=== PATIENT | female | born 1985 | race Caucasian/White ===

== ENCOUNTER → 2016-07-16 | Outpatient (CLI) | payer BC ==
--- NOTE | 2016-07-16 09:37 | DIAGNOSTIC IMAGING REPORT ---
CHEST 2 VIEWS ROUTINE CLINICAL HISTORY: Cough. COMPARISON STUDY: No previous studies for comparison. FINDINGS: Lung volumes are normal. Lungs are clear. There is no pneumothorax or pleural effusion. Cardiac size is normal. Mediastinal contours are normal. There is no evidence of pulmonary edema. IMPRESSION: No acute cardiopulmonary findings. Electronically signed by: Carlos Manuel Wilson M.D. 07/16/2016 9:35 AM Dictated Date/Time: 07/16/2016 9:34 AM
== END | disposition home or self-care (01) ==
LOC: C.RAD1850 09:18
PROVIDERS: ATTEND Nurse Practitioner Family
DX: R05 Cough (principal); J45.21 Mild intermittent asthma with (acute) exacerbation

== ENCOUNTER → 2017-05-15 | Outpatient (CLI) | payer OTHER, BC ==
--- NOTE | 2017-05-15 14:18 | DIAGNOSTIC IMAGING REPORT ---
L ANKLE MIN 3 VIEWS ROUTINE CLINICAL HISTORY: Left ankle pain status post trauma COMPARISON: None. DISCUSSION: There is minor age-indeterminate cortical irregularity of the distal fibular tip as visualized on the oblique view. Please correlate with the patient's site of pain. There are no other bony findings of significance. There is no dislocation. IMPRESSION: Age-indeterminate cortical irregularity of the distal fibular tip. Please correlate with the patient's site of pain Electronically signed by: Kyle Lemos M.D. 05/15/2017 2:16 PM Dictated Date/Time: 05/15/2017 2:15 PM
== END | disposition home or self-care (01) ==
LOC: C.RAD1850 14:00
PROVIDERS: ATTEND Nurse Practitioner
DX: S99.912A Unspecified injury of left ankle, initial encounter (principal); X58.XXXA Exposure to other specified factors, initial encounter

== ENCOUNTER → 2017-05-20 | Outpatient (CLI) | payer OTHER, BC ==
--- NOTE | 2017-05-20 14:00 | DIAGNOSTIC IMAGING REPORT ---
LEFT FOOT 3 VIEWS CLINICAL HISTORY: Left foot injury. FINDINGS: 3 views of left foot are obtained. No prior studies are available for comparison at the time of dictation. The skeletal structures are well mineralized. No fracture is seen. The joint spaces of the foot are maintained. The overlying soft tissues are within normal limits. IMPRESSION: Unremarkable radiographic assessment of left foot. Electronically signed by: Agustín Haney M.D. 05/20/2017 1:59 PM Dictated Date/Time: 05/20/2017 1:58 PM
== END | disposition home or self-care (01) ==
LOC: C.RAD1850 13:47
PROVIDERS: ATTEND Nurse Practitioner Adult Health
DX: M79.672 Pain in left foot (principal)

== ENCOUNTER → 2017-10-02 | Outpatient (CLI) | payer OTHER ==
--- NOTE | 2017-10-02 11:15 | DIAGNOSTIC IMAGING REPORT ---
HYSTEROSALPINGOGRAM HISTORY: Infertility. FLUOROSCOPY TIME: 0.2 minutes. 5 fluoroscopic spot images.. TECHNIQUE: The cervix was cannulated by the photographic editor-phys ther and water soluble contrast was instilled into the uterus under fluoroscopic guidance. Multiple spot images were obtained. FINDINGS: The uterine cavity is partially obscured by the overlying speculum but appears to be normal in size, shape, and position. The fallopian tubes are patent and there is free peritoneal spill bilaterally. IMPRESSION: Normal hysterosalpingogram. Electronically signed by: Camacho Zapata M.D. 10/02/2017 11:14 AM Dictated Date/Time: 10/02/2017 11:12 AM
== END | disposition home or self-care (01) ==
LOC: C.RAD 10:38
PROVIDERS: ATTEND Obstetrics & Gynecology
DX: N97.9 Female infertility, unspecified (principal)

== ENCOUNTER 2018-11-30 18:11 | Inpatient (IN) ==
--- OUTSIDE RECORDS SUMMARY | 2018-11-30 18:13 | External Medical Summary | Continuity of Care Document ---
:1985 Author Name Amanda Nunez, Provider Address Unavailable Unavailable , Care Team Providers Name Role Phone Case Velma RUBIO Unavailable [email or web address] Espinoza Unavailable Unavailable Unavailable Unavailable Unavailable Assessments Assessed Problems:Classic migraine with auraVertigo of central origin Problems Dizziness (780.4) (R42) Classic migraine with aura (346.00) (G43.109) Vertigo of central origin (386.2) (H81.49) Nausea (787.02) (R11.0) Allergies and Adverse Reactions Gentamicin Sulfate CREA (Allergy) Medications Meclizine HCl - 25 MG Oral Tablet; TAKE 1 TABLET 3 TIMES RODNEY LY NEEDED. Start: 11-Jan-2014 Quantity: 270 Refills: 1 Multi-Day Oral Tablet; TAKE 1 TABLET DAILY. Refills: 0 Procedures Procedures not documented Immunizations Immunizations not documented Social History - Smoking Status Never smoker Interventions Discussion/SummaryVertigo, migraines - pt has had recurring migraines and vertigo likely due to migraine. We discussedoption for daily preventive medication such as nortriptyline or verapamil however would prefer to avoid any medication if she could get . She can use TYlenol or meclizine prn. Keep track of symptoms, increase fluids, and cont good sleep hygiene. Recheck prn any new or worsening concerns. Plan of Treatment Planned Observations Planned Goals not documented Results No Known Results Results not documented Encounters Appointment; Velma Miller PA-C 05-Dec-2015 15:00 Encounter Diagnosis: Problem not documented
[2018-11-30] MEDS ORDERED: BUPIVACAINE 0.25% 30 ML VIAL ONE (19:14)
[2018-11-30] MEDS ORDERED: ePHEDrine sulfate 50 MG/ML AMP ONE (19:15)
[2018-11-30] MEDS ORDERED: fentaNYL citrate 100 MCG/2 ML VIAL ONE (19:15)
[2018-11-30] MEDS ORDERED: fentaNYL 2MCG/ML ROPIV 1.25MG/ML 100 ML BAG EPI ONE (19:15)
[2018-11-30] MEDS ORDERED: OXYTOCIN 30 UNITS/500 ML BAG IV PRN ×2 (19:16→21:12)
--- NOTE | 2018-11-30 19:24 | Obstetrical Progress Note ---
Date of Service November 30, 2018 Subjective Admit Note 33 F P0000 at term admitted with SROM confirmed by amnisure and active contractions. FHT Cat 1 with regular contractions. Cervix 7/100/-1/vertex. GBS is negative. Will admit in active labpr. Patient requesting epidural for pain managemnet. Anticipate normal delivery. Results & Data Vital Signs (Past 12 Hours) Vital Signs Temp Pulse Resp BP 11/30/18 19:08 75 113/72 11/30/18 19:05 75 20 113/72 11/30/18 18:19 36.6 C 18 11/30/18 18:18 75 113/72
[2018-11-30] MEDS: LACTATED RINGER'S 1,000 ML IV PRN ×2 (19:25→20:25)
[2018-11-30 19:54] LABS: Hematocrit (blood only) 34.4 % (37-47); Hemoglobin 11.7 g/dL (12.0-16.0); Mean Corpuscular Volume 86.4 fL (80-100); Mean Platelet Volume 10.6 fL (7.4-10.4); Platelet Count 306 K/uL (130-400); RDW Standard Deviation 44.1 fL (36.4-46.3); Red Blood Count 3.98 M/uL (4.2-5.4)
[2018-11-30] MEDS ORDERED: fentaNYL 2MCG/ML ROPIV 1.25MG/ML 100 ML BAG EPI PRN (20:08)
[2018-11-30] MEDS ORDERED: NALBUPHINE HCL INJ 10 MG/ML AMP IV PRN (20:08)
[2018-11-30] MEDS ORDERED: PROMETHAZINE HCL 6.25 MG in SODIUM CHLORIDE 0.9% 50 ML IV PRN (20:08)
[2018-11-30] MEDS ORDERED: ePHEDrine sulfate 50 MG/ML AMP IV PRN (20:08)
[2018-11-30] MEDS ORDERED: ONDANSETRON INJ 2 MG/ML 2 ML VIAL IV PRN (20:08)
[2018-11-30] MEDS ORDERED: DiphenhydrAMINE HCL 50 MG/ML VIAL IV PRN (20:08)
[2018-11-30] MEDS ORDERED: NALOXONE HCL 1 MG in SODIUM CHLORIDE 0.9% 1000ML 1,000 ML IV PRN (20:08)
[2018-11-30] MEDS ORDERED: NALOXONE HCL 0.4 MG/1 ML VIAL/CARP IV PRN (20:08)
--- NOTE | 2018-11-30 20:08 | Anesthesiology Consultation ---
Date of Service November 30, 2018 Assessment & Plan (1) Encounter for pre-operative examination: Chart Review Chart Review: Patient NOT seen in Pre Admission Testing and Acceptable Risk for Labor Epidural Consults Requested none ASA ASA2 Proposed Anesthesia Anesthesia Type: Labor Epidural Risk / Benefits Reviewed With: PT / POA / Parent / Guardian, Accepts Plan and Informed Consent Obtained History Height/Weight Height: 5 ft 9 in Weight: 97.069 kg Allergies Allergy/AdvReac Type Severity Reaction Status Date / Time shellfish derived Allergy Severe Anaphylaxis Verified 11/30/18 18:33 gentamicin Allergy Intermediate Rash, Fever Verified 11/30/18 18:33 Medications Home Medications Medication Instructions Recorded Confirmed Last Taken ferrous sulfate [iron] 325 mg PO DAILY 11/30/18 11/30/18 11/29/18 vit-iron fum-folic ac 1 tab PO DAILY 11/30/18 11/30/18 11/29/18 [ Vitamin] Active Medications Generic Name Dose Route Start Last Admin Trade Name Freq PRN Reason Stop Dose Admin Lactated Ringer's 1,000 mls @ 125 mls/hr 11/30/18 19:16 11/30/18 19:25 Lr IV 12/02/18 19:15 999 mls/hr .Q8H PRN Administration L&D Protocol Protocol NPO Date Last Intake of Fluids: 11/30/18 Time Last Intake of Fluids: 13:00 Date Last Intake of Solids: 11/30/18 Time Last Intake of Solids: 13:00 Past Medical History Medical History In vitro fertilization IVF with current . Vertigo [place] teeth extracted Exercise / Class Metabolic Activity II 4-5 Yardwork/Stairs/Walk up hill Past Surgical History Surgical History H/O left knee surgery 5 years old - Staph infection Past Anesthesia History No Hx of Anesthesia Complications and No Family Hx of Anesthesia Complications History of PONV No Hx of PONV and No Hx of Motion Sickness Social History Smoking Status: Never smoker Hx Alcohol Use: No Hx Substance Use: No Physical Exam Vital Signs Last Vital Signs Temp 36.6 C 11/30/18 18:19 Pulse 81 11/30/18 20:05 Resp 20 11/30/18 19:05 BP 102/75 11/30/18 20:05 Pulse Ox 92 11/30/18 20:05 ENMT Mouth: no dentition abnormality Thyromental Distance: > or= 3.5 Finger Breadths Mallampati Class: II Neck normal visual inspection Respiratory normal respiratory effort Auscultation: lungs clear to auscultation bilaterally Cardiovascular Rate/Rhythm: regular rate and regular rhythm Psychiatric Orientation: alert
[2018-11-30] MEDS ORDERED: BENZOCAINE 20% AER SPR 82.5 GM CAN EXT PRN (21:12)
[2018-11-30] MEDS ORDERED: DIPHTHERIA/TETANUS/PERTUSSIS 0.5 ML SYR/VIAL IM ONE (21:12)
[2018-11-30] MEDS ORDERED: BISACODYL 10 MG SUPP PR PRN (21:12)
[2018-11-30] MEDS ORDERED: HYDROCORTISONE ACETATE 25 MG SUPP PR PRN (21:12)
[2018-11-30] MEDS ORDERED: ACETAMINOPHEN 325 MG TAB PO PRN (21:12)
[2018-11-30] MEDS ORDERED: SUPERCREAM 0.870% 15 GM JAR EXT PRN (21:12)
--- NOTE | 2018-11-30 21:17 | Procedure Note ---
Vaginal Delivery Summary Date of Service November 30, 2018 Vaginal Delivery Summary Delivery Note live female delivered COLLEEN over intact perineum with cord along side of head with Apgars weight pending. Cord clamped anad cut. Cord blood obtained. Placenta delivered spontaneously and intact. No tears. EBL 200 ml. Final sponge and instrument count are correct. Mom and baby stable.
[2018-12-01] MEDS: IBUPROFEN 600 MG TAB PO PRN ×3 (04:25→17:35)
[2018-12-01 06:31] LABS: Hematocrit (blood only) 30.4 % (37-47); Hemoglobin 10.1 g/dL (12.0-16.0); Mean Corpuscular Hgb Conc 33.2 g/dL (32-36); Mean Corpuscular Volume 87.4 fL (80-100); Mean Platelet Volume 10.9 fL (7.4-10.4); Platelet Count 285 K/uL (130-400); RDW Coefficient of Variation 14.3 % (11.5-14.5); RDW Standard Deviation 45.1 fL (36.4-46.3); Red Blood Count 3.48 M/uL (4.2-5.4); White Blood Count 19.05 K/uL (4.8-10.8)
--- NOTE | 2018-12-01 08:01 | Obstetrical Progress Note ---
Date of Service December 01, 2018 Subjective Patient is seen and examined. She feels well, no complaints. Ambulating without dizziness Voiding without difficulty Tolerating regular diet with out N&V Bleeding is minimal No fever/ chills/ CP/ SOB/ N&V/ Leg pain Breast feeding without problems Vital Signs Temp Pulse Pulse Resp BP BP Pulse Ox 12/01/18 04:30 36.8 C 87 18 108/66 11/30/18 23:55 37.3 C 96 H 18 116/63 11/30/18 23:06 109 H 120/72 11/30/18 22:51 97 H 105/69 11/30/18 22:36 102 H 116/72 11/30/18 22:21 106 H 105/74 11/30/18 22:06 100 H 114/82 11/30/18 21:51 100 H 115/74 11/30/18 21:36 90 116/69 11/30/18 21:21 87 104/60 11/30/18 21:06 107/64 11/30/18 21:03 98 H 99 11/30/18 20:58 111 H 99 11/30/18 20:56 121 H 70 L 11/30/18 20:55 139 H 110/61 11/30/18 20:53 115 H 100 11/30/18 20:48 116 H 100 11/30/18 20:43 115 H 100 11/30/18 20:42 113 H 102/54 L 11/30/18 20:40 123 H 83/44 L 11/30/18 20:38 122 H 100 11/30/18 20:37 111 H 101/56 L 11/30/18 20:35 112 H 106/58 L 11/30/18 20:34 103 H 88 L 11/30/18 20:33 114 H 105/59 L 100 11/30/18 20:31 106 H 101/51 L 11/30/18 20:28 132 H 100 11/30/18 20:23 103 H 109/62 100 11/30/18 20:22 110 H 107/66 89 L 11/30/18 20:18 101 H 100 11/30/18 20:13 95 H 100 11/30/18 20:08 90 100 11/30/18 20:07 79 102/68 11/30/18 20:05 81 102/75 92 11/30/18 20:03 92 H 111/83 100 12/01/18 11/30/18 Range/Units 05:53 19:44 WBC 19.05 H 15.80 H (4.8-10.8) K/uL RBC 3.48 L 3.98 L (4.2-5.4) M/uL Hgb 10.1 L 11.7 L (12.0-16.0) g/dL Hct 30.4 L 34.4 L (37-47) % MCV 87.4 86.4 (80-100) fL MCH 29.0 29.4 (25-34) pg MCHC 33.2 34.0 (32-36) g/dL RDW Std Deviation 45.1 44.1 (36.4-46.3) fL RDW Coeff of Elisabeth 14.3 14.0 (11.5-14.5) % Plt Count 285 306 (130-400) K/uL MPV 10.9 H 10.6 H (7.4-10.4) fL PE: General: Alert, orientedx3, NAD Abd: soft, NT, fundus firm, below Umbilicus Perineum intact, Lochia rubra minimal Ext; NT, no edema AP: 33 yo s/p , ppd# 1 VSS Afebrile doing well Continue routine care All questions were answered CBC in am Results & Data Vital Signs (Past 12 Hours) Vital Signs Temp Pulse Pulse Resp BP BP Pulse Ox 12/01/18 04:30 36.8 C 87 18 108/66 11/30/18 23:55 37.3 C 96 H 18 116/63 11/30/18 23:06 109 H 120/72 11/30/18 22:51 97 H 105/69 11/30/18 22:36 102 H 116/72 11/30/18 22:21 106 H 105/74 11/30/18 22:06 100 H 114/82 11/30/18 21:51 100 H 115/74 11/30/18 21:36 90 116/69 11/30/18 21:21 87 104/60 11/30/18 21:06 107/64 11/30/18 21:03 98 H 99 11/30/18 20:58 111 H 99 11/30/18 20:56 121 H 70 L 11/30/18 20:55 139 H 110/61 11/30/18 20:53 115 H 100 11/30/18 20:48 116 H 100 11/30/18 20:43 115 H 100 11/30/18 20:42 113 H 102/54 L 11/30/18 20:40 123 H 83/44 L 11/30/18 20:38 122 H 100 11/30/18 20:37 111 H 101/56 L 11/30/18 20:35 112 H 106/58 L 11/30/18 20:34 103 H 88 L 11/30/18 20:33 114 H 105/59 L 100 11/30/18 20:31 106 H 101/51 L 11/30/18 20:28 132 H 100 11/30/18 20:23 103 H 109/62 100 11/30/18 20:22 110 H 107/66 89 L 11/30/18 20:18 101 H 100 11/30/18 20:13 95 H 100 11/30/18 20:08 90 100 11/30/18 20:07 79 102/68 11/30/18 20:05 81 102/75 92 11/30/18 20:03 92 H 111/83 100 11/30/18 20:01 83 115/65
[2018-12-01] MEDS ORDERED: NON-FORMULARY MEDICATION (Prenatal Vit-Iron Fum-Folic Ac [Prenatal Vitamin] 1 TAB) PO SCH (09:00)
[2018-12-01] MEDS ORDERED: NON-FORMULARY MEDICATION (Ferrous Sulfate [Iron] 325 MG) PO SCH (09:00)
--- NOTE | 2018-12-01 09:18 | Anesthesia Procedure Note ---
Date of Service December 01, 2018 Anesthesia Post Epidural Note Vital Signs Vital Signs: Temp Pulse Pulse Resp BP BP Pulse Ox 12/01/18 04:30 36.8 C 87 18 108/66 11/30/18 23:55 37.3 C 96 H 18 116/63 11/30/18 23:06 109 H 120/72 11/30/18 22:51 97 H 105/69 11/30/18 22:36 102 H 116/72 11/30/18 22:21 106 H 105/74 11/30/18 22:06 100 H 114/82 11/30/18 21:51 100 H 115/74 11/30/18 21:36 90 116/69 11/30/18 21:21 87 104/60 11/30/18 21:06 107/64 11/30/18 21:03 98 H 99 11/30/18 20:58 111 H 99 11/30/18 20:56 121 H 70 L 11/30/18 20:55 139 H 110/61 11/30/18 20:53 115 H 100 11/30/18 20:48 116 H 100 11/30/18 20:43 115 H 100 11/30/18 20:42 113 H 102/54 L 11/30/18 20:40 123 H 83/44 L 11/30/18 20:38 122 H 100 11/30/18 20:37 111 H 101/56 L 11/30/18 20:35 112 H 106/58 L 11/30/18 20:34 103 H 88 L 11/30/18 20:33 114 H 105/59 L 100 11/30/18 20:31 106 H 101/51 L 11/30/18 20:28 132 H 100 11/30/18 20:23 103 H 109/62 100 11/30/18 20:22 110 H 107/66 89 L 11/30/18 20:18 101 H 100 11/30/18 20:13 95 H 100 11/30/18 20:08 90 100 11/30/18 20:07 79 102/68 11/30/18 20:05 81 102/75 92 11/30/18 20:03 92 H 111/83 100 11/30/18 20:01 83 115/65 11/30/18 20:00 36.6 C 20 11/30/18 19:58 94 H 100 11/30/18 19:53 75 99 11/30/18 19:08 75 113/72 11/30/18 19:05 75 20 113/72 11/30/18 18:19 36.6 C 18 11/30/18 18:18 75 113/72 Notes Mental Status: alert / awake / arousable Nausea / Vomiting: adequately controlled Pain: adequately controlled Airway Patency, RR, SpO2: stable & adequate BP & HR: stable & adequate Hydration State: stable & adequate Neuraxial Anesthesia: was administered and sensory block is resolving Anesthetic Complications: no major complications apparent and Pt Satisfied with anesthetic care Epidural: Removed without complications and With tip intact
[2018-12-01] MEDS: FERROUS SULFATE 325 MG TAB PO SCH (09:34)
[2018-12-01] MEDS: DOCUSATE SODIUM 100 MG CAP PO SCH ×2 (09:34→21:13)
[2018-12-01] MEDS: PRENATAL VITAMIN 1 TAB PO SCH (09:34)
[2018-12-01] MEDS ORDERED: BISACODYL 5 MG TABEC PO SCH (20:00)
[2018-12-02] MEDS: IBUPROFEN 600 MG TAB PO PRN (05:31)
[2018-12-02 06:55] LABS: Basophils # (auto) 0.03 K/uL (0-0.2); Basophils % (auto) 0.2 %; Eosinophils # (auto) 0.15 K/uL (0-0.5); Eosinophils % (auto) 1.2 %; Hemoglobin 10.5 g/dL (12.0-16.0); Immature Granulocytes % (auto) 0.8 %; Lymphocytes # (auto) 2.96 K/uL (1.2-3.4); Mean Corpuscular Hgb Conc 32.8 g/dL (32-36); Mean Corpuscular Volume 89.4 fL (80-100); Mean Platelet Volume 10.3 fL (7.4-10.4); Monocytes # (auto) 0.79 K/uL (0.11-0.59); Monocytes % (auto) 6.4 %; Neutrophils % (auto) 67.4 %; Platelet Count 295 K/uL (130-400); RDW Coefficient of Variation 14.6 % (11.5-14.5); RDW Standard Deviation 47.7 fL (36.4-46.3); Red Blood Count 3.58 M/uL (4.2-5.4); White Blood Count 12.33 K/uL (4.8-10.8)
[2018-12-02] MEDS: PRENATAL VITAMIN 1 TAB PO SCH (08:19)
[2018-12-02] MEDS: FERROUS SULFATE 325 MG TAB PO SCH (08:19)
[2018-12-02] MEDS: DOCUSATE SODIUM 100 MG CAP PO SCH (08:19)
--- NOTE | 2018-12-02 09:03 | Obstetrical Progress Note ---
Date of Service December 02, 2018 Physical Exam Physical Exam: abdomen soft and non tender vaginal bleeding scant to moderate ambulating well no calf tenderness Results & Data Vital Signs (Past 12 Hours) Vital Signs Temp Pulse Resp BP 12/01/18 23:25 36.5 C 69 18 108/75
== END 2018-12-02 16:05 | disposition home or self-care (01) | DRG 807 ==
LOC: OPB 18:11 → 4S1 18:11 → 4S2 23:25

== ENCOUNTER 2024-04-30 07:45 | Inpatient (IN) ==
--- OUTSIDE RECORDS SUMMARY | 2024-04-30 07:50 | External Medical Summary | Summary of Care ---
Author Name Unknown Organization [facility] Address [address] [place] [address] Phone [phone] Care Team Providers Care Acetylene Operator Name Role Phone Unavailable Primary Care Provider Unavailabl e Reason for Visit * Reason Comments Return Visit Encounter Details Date Type Department Care Team (Latest Contact Info) Description 04/21/2024 2:30 PM EDT Office Visit Gynecology/Obstetric s Jethro Mendoza [address] [place] [address] Bud Cruz MD [address] [place] [phone] Mone Mendoza Stress Tests Berta [address] [place] [phone] Multigravida of advanced maternal age in third trimester*; resulting from in vitro fertilization in third trimester; Anxiety during ; High-risk in third trimester; Antepartum anemia complicating ; History of respiratory syncytial virus (RSV) vaccination Allergies Active Allergy Reactions Criticality Noted Date Comments Fentanyl Nausea/vomiting 09/12/2020 Gentamicin 02/13/2011 Unsure- mother told allergic Shellfish Allergy Edema airway High 09/07/2018 documented as of this encounter (statuses as of 04/21/2024) Medications Medication Sig Dispensed Refills Start Date End Date Status 28-0.8 MG Oral Tablet Take by mouth. Active Famotidine 20 MG Oral Tablet (Pepcid) Take 1 Tablet by mouth in the morning and 1 Tablet before bedtime. Active Vitamin B-12 1000 MCG Oral Tablet (Cyanocobalamin) Take 1 Tablet by mouth daily. 90 Tablet 1 02/12/2024 Active Fluticasone Propionate 50 MCG/ACT Nasal Suspension (Flonase) Administer 2 Sprays into each nostril in the morning. 16 g 1 03/26/2024 Active Cetirizine HCl 10 MG Oral Tablet (ZyrTEC) Take 1 Tablet by mouth in the morning. 90 Tablet 3 03/26/2024 Active Albuterol Sulfate HFA 108 (90 Base) MCG/ACT Inhalation Aerosol Solution Inhale 2 Puffs by mouth every 6 hours as needed (SOB, cough). 18 g 5 04/09/2024 Active methylPREDNISolone 4 MG Oral Tablet Therapy Pack (Medrol Dosepack) follow package directions 21 Tablet 04/09/2024 Active documented as of this encounter (statuses as of 04/21/2024) Active Problems Problem Noted Date Diagnosed Date History of respiratory syncytial virus (RSV) vac cination 03/25/2024 Overview: Received 03/10/24 Iron deficiency anemia 02/24/2024 Antepartum anemia complicating 024 Overview: Hgb 10.9 at 28 wks, blood mgmt referral placed High-risk 12/24/2023 Anxiety during 11/05/2023 Overview: Sees a therapist regularly; states that she is doing very well. Denies current depression symptoms as well as suicidal/homicidal ideation. Last Assessment & Plan: ANXIETY AND DEPRESSION CONSIDERATIONS: Untreated maternal anxiety and depression may be associated with an increased risk of multiple poor obstetrical outcomes including miscarriages, low weight, and delivery. Women with a history of anxiety or depression are at risk for recurrence both during and/or the period. Studies of first-trimester SSRI exposure do not demonstrate consistent data to support an increased risk for structural malformations. Anti-anxiety or depression medications have been associated with transient effects (withdrawal syndrome). RECOMMENDATIONS: Mental illness can and should be treated during when the benefits of treatment outweigh potential risks. Referral to behavioral health services as clinically indicated. AMA (advanced maternal age) multigravida 35+ Overview: Ms. Godoy will be 38 years-old by OLAMIDE (04/30/24). Undecided re: genetic screening. Embryos were frozen at age 32. Last Assessment & Plan: CONSIDERATIONS: We reviewed the most pertinent aspects of the following: Advanced maternal age (AMA) refers to a woman with a villafuerte who will be at the age of 35 or older at the estimated time of delivery and may be associated with increased morbidity. Cell-free DNA (cffDNA) screening is a genetic screening option that analyzes maternal blood for DNA that is placental in origin and targets the following conditions: Trisomy 21 (Down syndrome), trisomy 18, trisomy 13, and sex chromosome abnormalities such as monosomy X (Kaplan syndrome), and sex chromosome trisomies (triple X, Klinefelter syndrome, XYY). It may also evaluate for other genetic alterations such as microdeletions, depending on the specific test. It reveals the sex of the fetus but should generally not be performed solely for this indication. The screening test can be performed after 10 weeks gestation. Results provided are NOT diagnostic, but provide a risk estimate. Types of results include low-risk/negative, high-risk/positive, and inconclusive. Low-risk results convey a low risk for the conditions screened, while high-risk results will indicate which condition is high risk and the likelihood of the condition based on the results. High-risk and inconclusive results would require follow up with a Maternal- Medicine genetic counselor. Amniocentesis would be recommended in the setting of high-risk results. Results are available 5-7 days after the test is completed. Cost of cffDNA screening is dependent on health insurance plan. Brochure provided to patient with contact information to call and inquire about insurance coverage and cost ([place] [address]). Patient aware not all insurances cover this test. The performing laboratory will bill the insurance directly. Offer MSAFP only (not Quad Screen) at 16-22 weeks if screening for open neural tube defects is desired. Amniocentesis for diagnosis of chromosomal abnormalities is also available. The risk of complications from the procedure and that risk is 1 in 500 (0.2%). In addition to the risk of chromosomal abnormalities, there is an increased risk of congenital/structural anomalies. RECOMMENDATIONS: Recommend MFM anatomy ultrasound at 19-20 weeks gestation. resulting from in vitro fertilization 10/27/2023 Overview: IVF with embryo transfer date 08/13/23. [facility]. Last Assessment & Plan: We reviewed slightly increased risk for congenital anomalies, particularly cardiac, in IVF pregnancies as well as FGR. Etiology of these complications is unknown; perhaps related to underlying cause of the infertility vs. embryo cell culture. The risk is higher when ICSI is used. echo may not detect small VSD (<2mm) but is effective in diagnosis of most cyanotic lesions and many other clinically relevant cardiac defects. Today's exam did not suggest any evidence of cardiac abnormality. Regardless of preimplantation genetic studies, screening for aneuploidy still recommended if results would affect management. NIPT is available throughout if desired. Vertigo 10/06/2013 Estimated Date of Delivery Comme nts Yes 04/30/2024 Based on Embryo Transfer documented as of this encounter (statuses as of 04/21/2024) Resolved Problems Problem Noted Date Diagnosed Date Resolved Date High-risk 11/05/2023 12/24/19 24 Supervision of normal first , antepartum 04/27/2018 11/30/2018 with history of in fertility, antepartum 04/27/2018 11/30/2018 Overview: IVF Cough 08/09/2013 04/27/2018 General counseling for presc ription of oral contraceptives 03/25/2012 04/27/2018 Internal derangement of knee 12/30/2011 09/22/2018 Acne 04/27/2018 Overview: [facility] documented as of this encounter (statuses as of 04/21/2024) Immunizations Name Administration Dates Next Due RSV Vac., Bivalent, Perfusion F, Pf,0.5 Ml (Abry svo) 03/10/2024 Seasonal Influenza, PF, 6 M & above, IM , (FluLaval or Fluzone) 04/06/2022,03/18/2020 Seasonal Influenza, Trivalent, (IIV3), PF, (Fluz one) 04/06/2024 TDAP (age 10 and older)(Boostrix) 02/11/2024, TDAP, Age 7 and older, IM (Adacel) 08/29/2007 documented as of this encounter Social History Tobacco Use Types Packs/Day Years Used Date Smoking Tobacco: Never Smokeless Tobacco: Never Alcohol Use Standard Drinks/Week Comments Not Currently 0 (1 standard drink = 0.6 oz pur e alcohol) socially PHQ-2 Answer Date Recorded PHQ-2 Score 0 05/03/2018 Hunger Vital Sign Answer Date Recorded Within the past 12 months, y ou worried that your food would run out before you got the money to buy more. Never true 12/11/19 24 Within the past 12 months, t he food you bought just didn't last and you didn't have money to get more. Never true 12/11/2023 Campbell Depression Scale Answer Date Recorded Campbell Depression Scale Total 8 03/25/2024 The thought of harming myself has occurred to me . Never 03/25/2024 Childcare Answer Date Recorded Do you feel overwhelmed with taking care of a child, family member or friend? No 12/11/2023 Does your family need help f inding childcare? (Household - for ages 0-17 years) Not on file 12/11/2023 Clothing Answer Date Recorded Have you been unable to get clothing when it was really needed? No 12/11/2023 Is your family able to get c lothes or diapers when needed? (Household - for ages 0-17 years) Not on file 12/11/2023 Personal Safety Answer Date Recorded Do you feel unsafe or have concerns for your saf ety? No 12/11/2023 Do you have concerns for you r family's safety? (Household - for ages 0-17 years) Not on file 12/11/2023 Utilities Answer Date Recorded Do you have trouble paying y our heating, water, or electric bill? No 12/11/2023 Is your family able to pay t he heat, water, or electric bill? (Household - for ages 0-17 years) Not on file 12/11/2023 Does your family have access to good internet? (Household - for ages 0-17 years) Not on file 12/11/2023 Employment Status Answer Date Recorded Are you unemployed or without regular income? No 12/11/2023 Does the household have a re gular source of income? (Household - for ages 0-17 years) Not on file 12/11/2023 Social Connections Answer Date Recorded How often do you feel lonely or isolated from those around you? Sometimes 12/11/2023 Financial Resource Strain Answer Date R ecorded Do you have any trouble payi ng for your medications, or do you think you might in the future? No 12/11/2023 Does your family have troubl e paying for medicine? (Household - for ages 0-17 years) Not on file 12/11/2023 Transportation Needs Answer Date Record ed READ ONLY Do you have troubl e getting a ride to medical visits or work? Never True 12/11/2023 Does your family have a hard time getting a ride to doctors visits? (Household - for ages 0-17 years) Not on file 12/11/2023 Has lack of transportation k ept you from medical appointments, meetings, work, or from getting things needed for daily living? Check all that apply. (Adult - for ages 18 years and over) Not on file 12/11/2023 Do you (or your family) have trouble finding or paying for a ride (transportation)? (Household - for ages 0-17 years) Not on file 12/11/2023 Housing Stability Answer Date Recorded Do you currently live in a s helter or have no steady place to sleep at night? No 12/11/2023 READ ONLY Do you think you a re at risk of becoming homeless? No 12/11/2023 Does your family worry about paying for your home or becoming homeless? (Household - for ages 0-17 years) Not on file 0 12/11/2023 Are you homeless or worried that you might be in the future? (Adult - for ages 18 years and over) Not on file Are you (or your family) deyanira eless or worried that you might be in the future? (Household - for ages 0-17 years) Not on file Food Insecurity Answer Date Recorded Do you need food for this week? No 12/11/2023 Are you able to get enough f ood for your family? (Household - for ages 0-17 years) Not on file 12/11/2023 Does your family need food t his week? (Household - for ages 0-17 years) Not on file 12/11/2023 Do you always have enough fo od for your family? (Household - for ages 0-17 years) Not on file 12/11/2023 Estimated Date of Delivery Comme nts Yes 04/30/2024 Based on Embryo Transfer Sex and Gender Information Value Date Recorded Sex Assigned at Female 01/28/2023 6:38 AM EDT Gender Identity Female 01/28/2023 6:38 AM EDT Sexual Orientation Straight 01/28/2023 6: 38 AM EDT Job Start Date Occupation Industry Not on file Not on file Not on file documented as of this encounter Last Filed Vital Signs Vital Sign Reading Time Taken Comments Blood Pressure 114/64 04/21/2024 2:52 PM EDT Pulse - - Temperature - - Respiratory Rate - - Oxygen Saturation - - Inhaled Oxygen Concentration - - Weight - - Height 175.3 cm (5' 9") 04/21/2024 2:52 PM EDT Body Mass Index - - documented in this encounter Progress Notes * Bud Cruz MD - 04/21/2024 3:01 PM EDT Pt dong well No comaplaints NST; CAT1 ASSESSMENT assessment with Non-stress Test completed on 04/21/2024 at 38weeks gestation for indication of advanced maternal age heart baseline: 140 bpm Variability: Moderate Decelerations: absent Accelerations: present Contractions: None NST start time: 1430 NST stop time: 1450 NST strip reviewed, interpreted, and approved by OB provider, link. NST strip stored in clinic storage file documented in this encounter Plan of Treatment Upcoming Encounters Date Type Department Care Team (Late st Contact Info) Description 04/28/2024 1:15 PM EDT Office Visit Gynecology/Obstetrics Jehtro Mendoza [address] [place] [address] Rohini Gomez CRNP [address] [place] [address] Mendoza, Non Stress Tests Berta [address] [place] [address] Health Maintenance Due Date Last Done Comments Hepatitis B Vaccine (1 of 3 - 19+ 3-dose series) 2004 HPV/Co-Test 2015 Diabetes Screening 10/20/2016 10/20/2013 Depression Screening 01/16/2020 01/15/2019 Cervical Cancer Screening 01/17/2024 Pap Smear 01/17/2024 01/16/2021, 01/28, 05/31/2014, Additional history exists DTap/Tdap Vaccines (4 - Td or Tdap) 02/10/2034 02/11/2024, 09/22/2018, 08/29/2007 Pneumococcal Vaccine: Pediatrics (0 to 5 Years) and At-Risk Patients (6 to 64 Years) Aged Out 07/02/2016 No longer eligible based on patient's age to complete this topic COVID-19 Vaccine Completed 04/04/2024 Influenza Vaccine (FLU shot) Completed 01/2024, 04/06/2022, 03/18/2020, Additional history exists HPV (Gardasil) Vaccine Aged Out No lo nger eligible based on patient's age to complete this topic MENINGOCOCCAL (MENACTRA/MENVEO) Aged Out No longer eligible based on patient's age to complete this topic documented as of this encounter Medical Devices Not on filedocumented as of this encounter Visit Diagnoses Diagnosis Multigravida of advanced maternal age in third trimester- Primary resulting from in vitro fertilization in third trimester Anxiety during High-risk in third trimester Antepartum anemia complicating Anemia, antepartum History of respiratory syncytial virus (RSV) vaccination documented in this encounter
--- OUTSIDE RECORDS SUMMARY | 2024-04-30 07:50 | External Medical Summary | Summary of Care ---
Author Name Unknown Organization [facility] Address [address] [place] [address] Phone [phone] Care Team Providers Care Assistant Boiler Operator Name Role Phone Unavailable Primary Care Provider Unavailabl e Reason for Visit * Reason Onset Date Comments Anemia Follow-Up 04/15/2024 Encounter Details Date Type Department Care Team (Late st Contact Info) Description 04/15/2024 10:15 AM EDT Pharmacy Pharmacy, [place] [address] [place] [address] Clinic, Anemia [address] [place] [address] Iron deficiency anemia, unspecified iron deficiency anemia type* Allergies Active Allergy Reactions Criticality Noted Date Comments Fentanyl Nausea/vomiting 09/12/2020 Gentamicin 02/13/2011 Unsure- mother told allergic Shellfish Allergy Edema airway High 09/07/2018 documented as of this encounter (statuses as of 04/15/2024) Medications Medication Sig Dispensed Refills Start Date [...] as of this encounter (statuses as of 04/15/2024) Active Problems Problem Noted Date Diagnosed Date [...] insurance coverage and cost [place] [address]). Patient aware not all insurances cover this [...] Overview[facility] Last Assessment & Plan: We reviewed slightly [...] as of this encounter (statuses as of 04/15/2024) Resolved Problems Problem Noted Date Diagnosed Date Resolved Date High-risk 11/05/2023 12/24/19 24 Supervision of normal first , antepartum 04/27/2018 11/30/2018 with history of in fertility, antepartum 04/27/2018 11/30/2018 Overview: IVF Cough 08/09/2013 04/27/2018 General counseling for presc ription of oral contraceptives 03/25/2012 04/27/2018 Internal derangement of knee 12/30/2011 09/22/2018 Acne 04/27/2018 Overview: [facility] documented as of this encounter (statuses as of 04/15/2024) Immunizations Name Administration Dates Next Due RSV [...] money to get more. Never true 12/11/2023 [place]ier Depression Scale Answer Date Recorded [place] Depression Scale Total 8 03/25/2024 The thought [...] on file documented as of this encounter Progress Notes * Keely Negro [facility] - 04/15/2024 3:45 PM EDT Patient Phone Numbers Called patient to review labs from 04/06. Hgb: 11.4 g/dL TSAT: 21 % Ferritin: 215 ng/mL B12: 329 pg/mL FA: 11.2 ng/mL Patient is s/p Infed 1gm x 1 on 03/04. Hgb is below target range but much improved. Iron studies within target range. Per chart review, patient is taking B12 1000mcg daily and appears to be tolerating it without issue. Patient is feeling really good. Plan: No anemia pharmacological intervention at this time. Anemia Clinic will sign off at this time. Thank you for allowing us to participate in the care of this patient. Thanks, Keely Negro [facility] Clinical Pharmacist [facility] (P: [phone]) documented in this encounter Plan of Treatment Upcoming Encounters Date Type Department Care Team (Late st Contact Info) Description 04/21/2024 2:30 PM EDT Office Visit Gynecology/Obstetrics Jethro Mendoza [address] [place] [phone] Bud Cruz MD [address] [place] [phone] Mone Mendoza Stress Tests Berta [address] [place] [address] Health Maintenance Due Date Last Done Comments [...] as of this encounter Visit Diagnoses Diagnosis Iron deficiency anemia, unspecified iron deficiency anemia type- Primary documented in this encounter
--- OUTSIDE RECORDS SUMMARY | 2024-04-30 07:50 | External Medical Summary | Summary of Care ---
Author Name Unknown Organization [facility] Address [address] [facility] [place] [address] Phone [phone] Care Team Providers Care Co Founder Name Role Phone Unavailable Primary Care Provider Unavailabl e Reason for Visit * Reason Comments Return Visit Non Stress Test Encounter Details Date Type Department Care Team (Late st Contact Info) Description 04/28/2024 1:15 PM EDT Office Visit Gynecology/Obstetri carol Mendoza [address] [place] [address] Rohini Gomez CRNP [address] [place] [phone] Reji Non Stress Tests Berta [address] [place] [phone] High-risk in third trimester*; Multigravida of advanced maternal age in third trimester; resulting from in vitro fertilization in third trimester; Anxiety during ; Antepartum anemia complicating ; History of respiratory syncytial virus (RSV) vaccination Allergies Active Allergy Reactions Criticality Noted Date Comments Fentanyl Nausea/vomiting 09/12/2020 Gentamicin 02/13/2011 Unsure- mother told allergic Shellfish Allergy Edema airway High 09/07/2018 documented as of this encounter (statuses as of 04/28/2024) Medications Medication Sig Dispensed Refills Start Date [...] as of this encounter (statuses as of 04/28/2024) Active Problems Problem Noted Date Diagnosed Date [...] insurance coverage and cost ([place] [address]). Patient aware not all insurances cover this [...] Overview: [facility]. Last Assessment & Plan: We reviewed [...] as of this encounter (statuses as of 04/28/2024) Resolved Problems Problem Noted Date Diagnosed Date Resolved Date High-risk 11/05/2023 12/24/19 24 Supervision of normal first , antepartum 04/27/2018 11/30/2018 with history of in fertility, antepartum 04/27/2018 11/30/2018 Overview: IVF Cough 08/09/2013 04/27/2018 General counseling for presc ription of oral contraceptives 03/25/2012 04/27/2018 Internal derangement of knee 12/30/2011 09/22/2018 Acne 04/27/2018 Overview: [facility] documented as of this encounter (statuses as of 04/28/2024) Immunizations Name Administration Dates Next Due RSV [...] money to get more. Never true 12/11/2023 Elizabeth Depression Scale Answer Date Recorded Elizabeth Depression Scale Total 8 03/25/2024 The thought [...] Sign Reading Time Taken Comments Blood Pressure 118/68 04/28/2024 1:08 PM EDT Pulse - - Temperature - - Respiratory Rate - - Oxygen Saturation - - Inhaled Oxygen Concentration - - Weight - - Height - - Body Mass Index - - documented in this encounter Progress Notes * Rohini Gomez CRNP - 04/28/2024 1:25 PM EDT 39w5d Doing well. Good movement. No regular ctx, leaking/bleeding. Induction is on Friday, discussed what to expect. Call prn. ASSESSMENT assessment with Non-stress Test completed on 04/28/2024 at 39.5 weeks gestation for indication of IVF heart baseline: 130 bpm Variability: Moderate Decelerations: absent Accelerations: present Contractions: occasional NST start time: 1304 NST stop time: 1332 NST strip reviewed, interpreted, and approved by OB provider, JACOBO Vick . NST strip stored in clinic storage file JACOBO Vick * Lindsey Ugarte CMA - 04/28/2024 1:09 PM EDT 39w5d + nausea, from heartburn No concern s IOL 04/30 documented in this encounter Plan of Treatment Upcoming Encounters Date Type Department Care Team (Late st Contact Info) Description 05/25/2024 10:30 AM EST Office Visit Gynecology/Obstetrics Jethro Mendoza [address] [place] [phone] [place], JACOBO Epstein [address] [place] [address] Health Maintenance Due Date Last Done Comments [...] as of this encounter Visit Diagnoses Diagnosis High-risk in third trimester- Primary Multigravida of advanced maternal age in third trimester resulting from in vitro fertilization in third trimester Anxiety during Antepartum anemia complicating Anemia, antepartum History of respiratory syncytial virus (RSV) vaccination documented in this encounter
--- OUTSIDE RECORDS SUMMARY | 2024-04-30 07:50 | External Medical Summary | Summary of Care ---
Author Name Unknown Organization [facility] Address [address] [facility] [place] [address] Phone [phone] Care Team Providers Care Physical Director Name Role Phone Unavailable Primary Care Provider Unavailabl e Reason for Visit * Reason Comments Return Visit Non Stress Test Encounter Details Date Type Department Care Team (Late st Contact Info) Description 04/14/2024 11:00 AM EDT Office Visit Gynecology/Obstetri carol Uribe'yesenia Mendoza [address] [place] [address] Rohini Gomez CRNP [address] [place] [phone] Reji Non Stress Tests Berta [address] [place] [phone] High-risk in third trimester*; Multigravida of advanced [...] as of this encounter (statuses as of 04/14/2024) Medications Medication Sig Dispensed Refills Start Date [...] as of this encounter (statuses as of 04/14/2024) Active Problems Problem Noted Date Diagnosed Date [...] insurance coverage and cost [place] [address]). Patient aware not all insurances cover this [...] Overview: [facility]. Last Assessment & Plan: We reviewed [...] as of this encounter (statuses as of 04/14/2024) Resolved Problems Problem Noted Date Diagnosed Date Resolved Date High-risk 11/05/2023 12/24/19 24 Supervision of normal first , antepartum 04/27/2018 11/30/2018 with history of in fertility, antepartum 04/27/2018 11/30/2018 Overview: IVF Cough 08/09/2013 04/27/2018 General counseling for presc ription of oral contraceptives 03/25/2012 04/27/2018 Internal derangement of knee 12/30/2011 09/22/2018 Acne 04/27/2018 Overview: [facility] documented as of this encounter (statuses as of 04/14/2024) Immunizations Name Administration Dates Next Due RSV [...] money to get more. Never true 12/11/2023 [place] Depression Scale Answer Date Recorded [place] Depression Scale Total 8 03/25/2024 The thought [...] Sign Reading Time Taken Comments Blood Pressure 120/72 04/14/2024 11:12 AM EDT Pulse - - Temperature - - Respiratory Rate - - Oxygen Saturation - - Inhaled Oxygen Concentration - - Weight - - Height - - Body Mass Index - - documented in this encounter Progress Notes * Rohini Gomez CRNP - 04/14/2024 11:15 AM EDT 37w5d Normal movement pattern. No regular ctx; denies leaking/bleeding. Repeat CBC last week WNL. Scheduled for 39 week induction, wishes to change to 04/30. 1 week return with NST. ASSESSMENT assessment with Non-stress Test completed on 04/14/2024 at 37.5 weeks gestation for indication of IVF heart baseline: 140 bpm Variability: Moderate Decelerations: absent Accelerations: present Contractions: Present rare NST start time: 1108 NST stop time: 1133 NST strip reviewed, interpreted, and approved by OB provider, JACOBO Vick. NST strip stored in clinic storage file JACOBO Vick documented in this encounter Plan of Treatment Upcoming Encounters Date Type Department Care Team (Late st Contact Info) Description 04/15/2024 9:30 AM EDT Pharmacy Pharmacy, [address] [address] Clinic, Anemia [address] [place] [address] 04/21/2024 2:30 PM EDT Office Visit Gynecology/Obstetrics Jethro Mendoza [address] [place] [address] Bud Cruz MD [address] [place] [phone] Reji, Mone Stress Tests Berta [address] [place] [phone] Health Maintenance Due Date Last Done Comments [...]
--- OUTSIDE RECORDS SUMMARY | 2024-04-30 07:50 | External Medical Summary | Summary of Care ---
Author Name Unknown Organization [facility] Address [address] [facility] [place] [address] Phone [phone] Care Team Providers Care Paving Block Cutter Name Role Phone Unavailable Primary Care Provider Unavailabl e Reason for Visit * Reason Comments Return Visit Non Stress Test Encounter Details Date Type Department Care Team (Late st Contact Info) Description 04/28/2024 1:15 PM EDT Office Visit Gynecology/Obstetri carol Mendoza [address] [place] [address] Rohini Gomez CRNP [address] [place] [phone] Reji Non Stress Tests Berta [address] [place] [address] High-risk in third trimester*; Multigravida of advanced [...] insurance coverage and cost ([place] [address]). Patient aware not all insurances cover this [...] Overview: [facility]. Last Assessment & Plan: We reviewed [...] of knee 12/30/2011 09/22/2018 Acne 04/27/2018 Overview: [facility] documented as of this encounter (statuses [...] money to get more. Never true 12/11/2023 [place] Depression Scale Answer Date Recorded [place] Depression Scale Total 8 03/25/2024 The thought [...] Mendoza [address] [place] [address] Backer, JACOBO Epstein [address] [place] [address] Health Maintenance Due Date Last Done Comments [...]
--- OUTSIDE RECORDS SUMMARY | 2024-04-30 07:51 | External Medical Summary | Summary of Care ---
Author Name Unknown Organization [facility] [address] [facility] [address] Phone [phone] Care Team Providers Care Senior Quality Control Technician Name Role Phone Unavailable Primary Care Provider Unavailabl e Reason for Visit * Reason Comments Return Visit Encounter Details Date Type Department Care Team (Latest Contact Info) Description 04/06/2024 1:45 PM EDT Office Visit Gynecology/Obstetric s Jethro Mendoza [address] [place] [address] Leilani Hair CRNP [address] [place] [phone] Reji Non Stress Tests eBrta [address] [place] [phone] Multigravida of advanced maternal age in third trimester*; resulting from in vitro fertilization in third trimester; Anxiety during ; High-risk in third trimester; Antepartum anemia complicating ; History of respiratory syncytial virus (RSV) vaccination; Need for prophylactic vaccination and inoculation against influenza Allergies Active Allergy Reactions Criticality Noted Date Comments Fentanyl Nausea/vomiting 09/12/2020 Gentamicin 02/13/2011 Unsure- mother told allergic Shellfish Allergy Edema airway High 09/07/2018 documented as of this encounter (statuses as of 04/06/2024) Medications Medication Sig Dispensed Refills Start Date [...] the morning. 90 Tablet 3 03/26/2024 Active documented as of this encounter (statuses as of 04/06/2024) Active Problems Problem Noted Date Diagnosed Date [...] (advanced maternal age) multigravida 35+ Overview: Ms. Gdooy will be 38 years-old by OLAMIDE (04/30/24). [...] insurance coverage and cost ([place] [address]). Patient aware not all insurances cover this [...] with embryo transfer date 08/13/23. [facility]. Last Assessment & Plan: We reviewed slightly [...] as of this encounter (statuses as of 04/06/2024) Resolved Problems Problem Noted Date Diagnosed Date Resolved Date High-risk 11/05/2023 12/24/19 24 Supervision of normal first , antepartum 04/27/2018 11/30/2018 with history of in fertility, antepartum 04/27/2018 11/30/2018 Overview: IVF Cough 08/09/2013 04/27/2018 General counseling for presc ription of oral contraceptives 03/25/2012 04/27/2018 Internal derangement of knee 12/30/2011 09/22/2018 Acne 04/27/2018 Overview: [facility] documented as of this encounter (statuses as of 04/06/2024) Immunizations Name Administration Dates Next Due RSV [...] money to get more. Never true 12/11/2023 [place] Depression Scale Answer Date Recorded [place] Depression Scale Total 8 03/25/2024 The thought [...] Sign Reading Time Taken Comments Blood Pressure 112/64 04/06/2024 1:35 PM EDT Pulse - - Temperature - - Respiratory Rate - - Oxygen Saturation - - Inhaled Oxygen Concentration - - Weight - - Height - - Body Mass Index - - documented in this encounter Progress Notes * Leilani Hair CRNP - 04/06/2024 2:23 PM EDT 36w4d No concerns. Asking about IOL, recommendation is by EDC as this is an IVF . Scheduled for 04/28. Good FM. No contractions, bleeding, LOF. GBS today. Hot Stamp Operator Documentation Provider requested mutuel clerk. Name of mutuel clerk: Lindsey ASSESSMENT assessment with Non-stress Test completed on 04/06/2024 at 36.4weeks gestation for indication of IVF heart baseline: 130 bpm Variability: Moderate Decelerations: absent Accelerations: present Contractions: None NST start time: 1332 NST stop time: 1357 NST strip reviewed, interpreted, and approved by OB provider, JACOBO Ramsey . NST strip stored in clinic storage file * Lindsey Ugarte CMA - 04/06/2024 2:20 PM EDT Patient here for FLU vaccine injection. Patient doing well no complaints. Injection given IM as ordered. Patient tolerated well. Patient to follow up as directed. Patient instructed to call if any complications. Patient verbalized understanding of instructions given and her follow up appt for BRIANNA Injection site: Left Deltoid Medication Source: Dispensed stock medication * Lindsey Ugarte CMA - 04/06/2024 2:00 PM EDT 36w4d GBS swab today FLU vaccine documented in this encounter Plan of Treatment Upcoming Encounters Date Type Department Care Team (Late st Contact Info) Description 04/07/2024 9:30 AM EDT Pharmacy Pharmacy, [address] [address] Clinic, [address] [address] 04/14/2024 11:00 AM EDT Office Visit Gynecology/Obstetrics Jethro Mendoza [address] [place] [address] BackerRohini CRNP [address] [place] [phone] Mone Mendoza Stress Tests Berta [address] [place] [phone] 04/21/2024 2:30 PM EDT Office Visit Gynecology/Obstetrics Jethro Mendoza [address] [place] [address] Bud Cruz MD [address] [place] [address] Mone Mendoza Stress Tests Berta [address] [place] [address] Pending Results Name Type Priority Associated Diagnoses Date /Time GROUP B STREP CULTURE/PCR Lab Routine Multigravida of advanced maternal age in third trimester 04/06/2024 2:30 PM EDT Scheduled Orders Name Type Priority Associated Diagnoses Orde r Schedule GROUP B STREP CULTURE/PCR Lab Routine Multigravida of advanced maternal age in third trimester Expected: 04/06/2024, Expires: 04/06/2025 Health Maintenance Due Date Last Done Comments [...] History of respiratory syncytial virus (RSV) vaccination Need for prophylactic vaccination and inoculation against influenza documented in this encounter
--- OUTSIDE RECORDS SUMMARY | 2024-04-30 07:51 | External Medical Summary | Summary of Care ---
Author Name Unknown Organization [facility] [address] [facility] [address] Phone [phone] Care Team Providers Care Medical Office Coordinator Name Role Phone Unavailable Primary Care Provider Unavailabl e Reason for Visit * Reason Comments Return Visit Encounter Details Date Type Department Care Team (Latest Contact Info) Description 04/06/2024 1:45 PM EDT Office Visit Gynecology/Obstetric s Jethro Mendoza [address] [place] [address] Leilani Hair CRNP [address] [place] [phone] Reji Non Stress Tests Berta [address] [place] [phone] Multigravida of advanced maternal age in third [...] insurance coverage and cost ([place] [address]). Patient aware not all insurances cover this [...] money to get more. Never true 12/11/2023 [place] Depression Scale Answer Date Recorded [place] Depression Scale Total 8 03/25/2024 The thought [...] FM. No contractions, bleeding, LOF. GBS today. Rivet Spinner Documentation Provider requested senior data mining analyst. Name of senior data mining analyst: Lindsey ASSESSMENT assessment with Non-stress Test completed [...] Description 04/07/2024 9:30 AM EDT Pharmacy Pharmacy, [address] [address] Clinic, [address] [address] 04/14/2024 11:00 AM EDT Office Visit Gynecology/Obstetrics Jethro Mendoza [address] [place] [address] BackerRohini CRNP [address] [place] [phone] Mone Mendoza Stress Tests Berta [address] [place] [phone] 04/21/2024 2:30 PM EDT Office Visit Gynecology/Obstetrics Jethro Mendoza [address] [place] [address] Bud Cruz MD [address] [place] [phone] Mone Mendoza Stress Tests Berta [address] [place] [address] Pending Results Name Type Priority Associated Diagnoses [...]
--- OUTSIDE RECORDS SUMMARY | 2024-04-30 07:51 | External Medical Summary | Summary of Care ---
Author Name Unknown Organization [facility] Address [address] [place] [address] Phone [phone] Care Team Providers Care Projects Manager Name Role Phone Unavailable Primary Care Provider Unavailabl e Reason for Visit * Reason Comments Outpatient Testing Encounter Details Date Type Department Care Team (Late st Contact Info) Description 04/06/2024 1:00 PM EDT Laboratory Laboratory, [facility] [address] [place] [address] [facility] [address] [place] [address] Iron deficiency anemia, unspecified iron deficiency anemia type Allergies Active Allergy Reactions Criticality Noted Date [...] insurance coverage and cost ([place] [address]). Patient aware not all insurances cover this [...] Overview: [facility]. Last Assessment & Plan: We reviewed [...] above, IM , (FluLaval or Fluzone) 04/06/2022,03/18/2020 TDAP (age 10 and older)(Boostrix) 02/11/2024, TDAP, [...] money to get more. Never true 12/11/2023 [place] Depression Scale Answer Date Recorded [place] Depression Scale Total 8 03/25/2024 The thought [...] 12/11/2023 Does the household have a re lar source of income? (Household - for ages [...] on file documented as of this encounter Plan of Treatment Upcoming Encounters Date Type Department Care Team (Late st Contact Info) Description 04/07/2024 9:30 AM EDT Pharmacy Pharmacy, [place] [address] [place] [address] Clinic, Anemia [address] [place] [address] Pending Results Name Type Priority Associated Diagnoses Date /Time CBC WITH WBC DIFFERENTIAL Lab Routine Iron deficiency anemia, unspecified iron deficiency anemia type 04/06/2024 1:05 PM EDT IRON SCREEN, INCLUDING TIBC Lab Routine Iron deficiency anemia, unspecified iron deficiency anemia type 04/06/2024 1:05 PM EDT FERRITIN Lab Routine Iron deficiency anemia, unspecified iron deficiency anemia type 04/06/2024 1:05 PM EDT RETICULOCYTE PANEL Lab Routine Iron deficiency anemia, unspecified iron deficiency anemia type 04/06/2024 1:05 PM EDT FOLIC ACID Lab Routine Iron deficiency anemia, unspecified iron deficiency anemia type 04/06/2024 1:05 PM EDT VITAMIN B12 Lab Routine Iron deficiency anemia, unspecified iron deficiency anemia type 04/06/2024 1:05 PM EDT CBC Lab Routine Iron deficiency anemia, unspecified iron deficiency anemia type 04/06/2024 1:05 PM EDT DIFFERENTIAL, AUTOMATED Lab Routine Iron deficiency anemia, unspecified iron deficiency anemia type 04/06/2024 1:05 PM EDT Health Maintenance Due Date Last Done Comments Hepatitis B Vaccine (1 of 3 - 19+ 3-dose series) 2004 HPV/Co-Test 2015 Diabetes Screening 10/20/2016 10/20/2013 Depression Screening 01/16/2020 01/15/2019 Cervical Cancer Screening 01/17/2024 Pap Smear 01/17/2024 01/16/2021, 01/28, 05/31/2014, Additional history exists Influenza Vaccine (FLU shot) (#1) 2024 04/06/2022, 03/18/2020, 04/30/2018 DTap/Tdap Vaccines (4 - Td or Tdap) 02/10/2034 02/11/2024, 09/22/2018, 08/29/2007 Pneumococcal Vaccine: Pediatrics (0 to 5 Years) and At-Risk Patients (6 to 64 Years) Aged Out 07/02/2016 No longer eligible based on patient's age to complete this topic COVID-19 Vaccine Completed 04/04/2024 HPV (Gardasil) Vaccine Aged Out No lo nger eligible based on patient's age to complete this topic MENINGOCOCCAL (MENACTRA/MENVEO) Aged Out No longer eligible based on patient's age to complete this topic documented as of this encounter Medical Devices Not on filedocumented as of this encounter Visit Diagnoses Diagnosis Iron deficiency anemia, unspecified iron deficiency anemia type documented in this encounter
--- OUTSIDE RECORDS SUMMARY | 2024-04-30 07:51 | External Medical Summary | Summary of Care ---
Author Name Unknown Organization [facility] Address [address] [place] [address] Phone [phone] Care Team Providers Care Forming Operator Name Role Phone Unavailable Primary Care Provider Unavailabl e Reason for Visit * Reason Comments Infusion Infed Encounter Details Date Type Department Care Team (Latest Contact Info) Description 03/04/2024 2:00 PM EDT Hem/Onc Treatment Hematology/Oncology Treatment, [address] [address] Natalie, Chair [address] Hem On[address] [address] Iron deficiency anemia, unspecified iron deficiency anemia type* Allergies Active Allergy Reactions Criticality Noted Date Comments Fentanyl Nausea/vomiting 09/12/2020 Gentamicin 02/13/2011 Unsure- mother told allergic Shellfish Allergy Edema airway High 09/07/2018 documented as of this encounter (statuses as of 04/13/2024) Medications Medication Sig Dispensed Refills Start Date End Date Status 28-0.8 MG Oral Tablet Take by mouth. Active Famotidine 20 MG Oral Tablet (Pepcid) Take 1 Tablet by mouth in the morning and 1 Tablet before bedtime. Active Vitamin B-12 1000 MCG Oral Tablet (Cyanocobalamin) Take 1 Tablet by mouth daily. 90 Tablet 1 02/12/2024 Active documented as of this encounter (statuses as of 04/13/2024) Active Problems Problem Noted Date Diagnosed Date Iron deficiency anemia 02/24/2024 Antepartum anemia complicating [...] insurance coverage and cost [place] [address]). Patient aware not all insurances cover this [...] Overview: [facility]. Last Assessment & Plan: We reviewed [...] as of this encounter (statuses as of 04/13/2024) Resolved Problems Problem Noted Date Diagnosed Date Resolved Date High-risk 11/05/2023 12/24/19 24 Supervision of normal first , antepartum 04/27/2018 11/30/2018 with history of in fertility, antepartum 04/27/2018 11/30/2018 Overview: IVF Cough 08/09/2013 04/27/2018 General counseling for presc ription of oral contraceptives 03/25/2012 04/27/2018 Internal derangement of knee 12/30/2011 09/22/2018 Acne 04/27/2018 Overview: [facility] documented as of this encounter (statuses as of 04/13/2024) Immunizations Name Administration Dates Next Due Seasonal Influenza, PF, 6 M & above, [...] money to get more. Never true 12/11/2023 [place] Depression Scale Answer Date Recorded [place] Depression Scale Total 10 10/27/2023 The thought of harming myself has occurred to me . Never 10/27/2023 Childcare Answer Date Recorded Do you feel [...] Sign Reading Time Taken Comments Blood Pressure 115/70 03/04/2024 4:35 PM EDT Pulse 87 03/04/2024 4:35 PM EDT Temperature 35.6 C (96.1 F) 03/04/2024 2:47 PM ED T Respiratory Rate 18 03/04/2024 4:35 PM EDT Oxygen Saturation 97% 03/04/2024 4:35 PM EDT Inhaled Oxygen Concentration - - Weight - - Height - - Body Mass Index - - documented in this encounter Nursing Notes * Mary Kay Loo RN - 03/04/2024 2:48 PM EDT Patient to chair 8 ambulatory Oriented to room and explained process for medication, verbalized understanding. Patient voices no complaints or concerns Safety and Risk for Injury Patient will remain free from injury. Ensure appropriate safety devices are available. Provide and maintain safe environment. Patient instructed on use of heat and massage functions where applicable. Patient shown how to operate the heat function of the chair and to alert nursing staff if the chair feels too warm. Patient instructed on the risk of potential price while using the heat function. Goals: patient will remain free of injury Possible barriers to meeting goals: ambulation with IV pole, increase risk of fall Stability of the patient: Moderately stable - low risk of patient condition declining or worsening Summary regarding today's goals: Met: patient remained free of injury Patient discharged in good condition, tolerated well documented in this encounter Plan of Treatment Upcoming Encounters Date Type Department Care Team (Late st Contact Info) Description 04/14/2024 11:00 AM EDT Office Visit Gynecology/Obstetrics Jethro Mendoza [address] [place] [address] BackerRohini CRNP [address] [place] [address] Mone Mendoza Stress Tests Berta [address] [place] [phone] 04/15/2024 9:30 AM EDT Pharmacy Pharmacy, [place] [address] [place], [place] [id number] [facility] [address] [place] [address] 04/21/2024 2:30 PM EDT Office Visit Gynecology/Obstetrics Jethro Mendoza [address] [place] [address] Bud Cruz MD [address] [place] [address] Mone Mendoza Stress Tests Berta [address] [place] [address] Health Maintenance Due Date Last Done Comments [...] anemia type- Primary documented in this encounter Administered Medications Inactive Administered Medications - up to 3 most recent administrations Medication Order MAR Action Action Date Dose Rate Site Acetaminophen (Tylenol) tab 650 mg 650 mg, Oral, ONCE, On [place]ore[place] 03/04/24 at 1515, For 1 dose, Maximum of 4 grams (4000 mg) per day. Given 03/04/2024 2:57 PM EDT 650 mg Famotidine (Pepcid) inj 20 mg 20 mg, IV Push, ONCE, On [place] 03/04/24 at 1515, For 1 dose, Give IV push over 2 minutes. Given 03/04/2024 2:57 PM EDT 20 mg Iron Dextran (Infed) 975 mg in NSS 250 mL INFUSION 975 mg, IV Piggyback, ONCE, 1 dose, On [place] 03/04/24 at 1600, Administer over 1 Hours, - Administer iron dextran infusion bag over 1 hour - Monitor for infusion reactions with vitals at 30 minutes and 60 minutes after starting the infusion. - If patient develops sign/symptoms of reaction or vital signs outside normal limits: 1) STOP infusion 2) CONTACT physician Start Infusion 03/04/2024 3:25 PM EDT 975 mg 274.5 mL/hr Iron Dextran (Infed) IV Push TEST DOSE 25 mg IV Push, Administer over 0.5 Minutes, -Educate patient on signs/symptoms of infusion reaction -Administer 25 mg test dose of iron dextran before infusion bag -Observe patient for signs/symptoms of reaction with vital signs before test dose, then at 15 minutes after administering the test dose -If patient tolerates test dose with no reaction, proceed with iron dextran infusion -HOLD infusion and contact physician immediately if patient reacts to test dose, ONCE, 1 dose, On [place] 03/04/24 at 1545 Given 03/04/2024 3:08 PM EDT 25 mg methylPREDNISolone sodium succ (SOLU-Medrol) inj 125 mg 125 mg, IV Push, ONCE, On [place] 03/04/24 at 1515, For 1 dose Given 03/04/2024 2:59 PM EDT 125 mg NSS infusion Intravenous, at 50 mL/hr, PRN, Starting on [place] 03/04/24 at 1545, Until [place] 03/04/24 at 2044, Maintenance line Start Infusion 03/04/2024 2:39 PM EDT 50 mL/hr documented in this encounter
--- OUTSIDE RECORDS SUMMARY | 2024-04-30 07:51 | External Medical Summary | Summary of Care ---
Author Name Unknown Organization [facility] Address [address] [facility] [place] [address] Phone [phone] Care Team Providers Care Sample Wrapper Name Role Phone Unavailable Primary Care Provider Unavailabl e Encounter Details Date Type Department Care Team (Late st Contact Info) Description 03/23/2024 Orders Only PATIENT PORTAL DO NOT DELETE THIS DEPT USED BY [place] [id number] Allergies Active Allergy Reactions Criticality Noted Date Comments Fentanyl Nausea/vomiting 09/12/2020 Gentamicin 02/13/2011 Unsure- mother told allergic Shellfish Allergy Edema airway High 09/07/2018 documented as of this encounter (statuses as of 03/23/2024) Medications Medication Sig Dispensed Refills Start Date [...] as of this encounter (statuses as of 03/23/2024) Active Problems Problem Noted Date Diagnosed Date [...] insurance coverage and cost ([place] [address]). Patient aware not all insurances cover this [...] Overview: IVF with embryo transfer date 08/13/23. [facility]. Last Assessment & Plan: We [...] as of this encounter (statuses as of 03/23/2024) Resolved Problems Problem Noted Date Diagnosed Date Resolved Date High-risk 11/05/2023 12/24/19 24 Supervision of normal first , antepartum 04/27/2018 11/30/2018 with history of in fertility, antepartum 04/27/2018 11/30/2018 Overview: IVF Cough 08/09/2013 04/27/2018 General counseling for presc ription of oral contraceptives 03/25/2012 04/27/2018 Internal derangement of knee 12/30/2011 09/22/2018 Acne 04/27/2018 Overview: [facility] documented as of this encounter (statuses as of 03/23/2024) Immunizations Name Administration Dates Next Due RSV [...] money to get more. Never true 12/11/2023 [place] Depression Scale Answer Date Recorded [place] Depression Scale Total 10 10/27/2023 The thought [...] Care Team (Late st Contact Info) Description 03/25/2024 8:30 AM EDT Office Visit Gynecology/Obstetrics [facility] [address] [address] Rohini Gomez CRNP [address] [address] 04/02/2024 9:30 AM EDT Pharmacy Pharmacy, [place] [address] [facility] [place] [id number] Clinic, [facility] [address] [place] [address] Health Maintenance Due Date Last Done Comments Hepatitis B Vaccine (1 of 3 - 19+ 3-dose series) 2004 HPV/Co-Test 2015 Diabetes Screening 10/20/2016 10/20/2013 Depression Screening 01/16/2020 01/15/2019 Cervical Cancer Screening 01/17/2024 Pap Smear 01/17/2024 01/16/2021, 0809/2016, 05/31/2014, Additional history exists COVID-19 Vaccine ( season) 2024 Influenza Vaccine (FLU shot) (#1) 2024 04/06/2022, 03/18/2020, 04/30/2018 DTap/Tdap Vaccines (4 - Td or Tdap) 02/10/2034 02/11/2024, 09/22/2018, 08/29/2007 Pneumococcal Vaccine: Pediatrics (0 to 5 Years) and At-Risk Patients (6 to 64 Years) Aged Out 07/02/2016 No longer eligible based on patient's age to complete this topic HPV (Gardasil) Vaccine Aged Out No lo nger eligible based on patient's age to complete this topic MENINGOCOCCAL (MENACTRA/MENVEO) Aged Out No longer eligible based on patient's age to complete this topic documented as of this encounter Medical Devices Not on filedocumented as of this encounter
--- OUTSIDE RECORDS SUMMARY | 2024-04-30 07:51 | External Medical Summary | Summary of Care ---
Author Name Unknown Organization [facility] Address [address] [place] [address] Phone [phone] Care Team Providers Care Editorial Clerk Name Role Phone Unavailable Primary Care Provider Unavailabl e Reason for Visit * Reason Comments Infusion Infed Encounter Details Date Type Department Care Team (Latest Contact Info) Description 03/04/2024 2:00 PM EDT Hem/Onc Treatment Hematology/Oncology Treatment, [address] [address] Natalie, Chair [address] Hem On[address] [address] Iron deficiency anemia, unspecified iron deficiency anemia [...] insurance coverage and cost ([place] [address]). Patient aware not all insurances cover this [...] Overview: [facility] with [facility]. Last Assessment & Plan: We reviewed [...] of knee 12/30/2011 09/22/2018 Acne 04/27/2018 Overview: [facility] documented as of this encounter (statuses [...] money to get more. Never true 12/11/2023 [place] Depression Scale Answer Date Recorded [place] Depression Scale Total 10 10/27/2023 The thought [...] 04/14/2024 11:00 AM EDT Office Visit Gynecology/Obstetrics Jehtro Mendoza [address] [place] [address] BackerRohini CRNP [address] [place] [address] Mone Mendoza Stress Tests Berta [address] [place] [address] 04/15/2024 9:30 AM EDT Pharmacy Pharmacy, [place] [address] [place], [place] [phone] [facility] [address] [place] [address] 04/21/2024 2:30 PM EDT Office Visit Gynecology/Obstetrics Jethro Mendoza [address] [place] [address] Bud Cruz MD [address] [place] [address] Mone Mendoza Stress Tests Berta [address] [address] Health Maintenance Due Date Last Done Comments [...]
--- OUTSIDE RECORDS SUMMARY | 2024-04-30 07:51 | External Medical Summary | Summary of Care ---
Author Name Unknown Organization [facility] Address [address] [place] [address] Phone [phone] Care Team Providers Care Stuffing Machine Operator Name Role Phone Unavailable Primary Care Provider Unavailabl e Reason for Visit * Reason Comments Acute Encounter Details Date Type Department Care Team (Latest Contact Info) Description 03/26/2024 3:40 PM EDT [facility] Visit [facility] [address] [place] [address] Lyle Méndez MD [address] [place] [address] Bronchitis, complicated*; Allergic rhinitis, unspecified seasonality, unspecified trigger; resulting from in vitro fertilization in third trimester Allergies Active Allergy Reactions Criticality Noted Date Comments Fentanyl Nausea/vomiting 09/12/2020 Gentamicin 02/13/2011 Unsure- mother told allergic Shellfish Allergy Edema airway High 09/07/2018 documented as of this encounter (statuses as of 04/03/2024) Medications Medication Sig Dispensed Refills Start Date End Date Status 28-0.8 MG Oral Tablet Take by mouth. Active Famotidine 20 MG Oral Tablet (Pepcid) Take 1 Tablet by mouth in the morning and 1 Tablet before bedtime. Active Vitamin B-12 1000 MCG Oral Tablet (Cyanocobalamin) Take 1 Tablet by mouth daily. 90 Tablet 1 02/12/2024 Active Amoxicillin-Pot Clavulanate 875-125 MG Oral Tablet (Augmentin) Take 1 Tablet by mouth in the morning and 1 Tablet before bedtime. Do all this for 10 days. 20 Tablet 03/26/2024 04/05/2024 Active Fluticasone Propionate 50 MCG/ACT Nasal Suspension (Flonase) Administer 2 Sprays into each nostril in the morning. 16 g 1 03/26/2024 Active Cetirizine HCl 10 MG Oral Tablet (ZyrTEC) Take 1 Tablet by mouth in the morning. 90 Tablet 3 03/26/2024 Active documented as of this encounter (statuses as of 04/03/2024) Active Problems Problem Noted Date Diagnosed Date [...] insurance coverage and cost ([place] [address]). Patient aware not all insurances cover this [...] Overview: [facility]. Last Assessment & Plan: We [...] as of this encounter (statuses as of 04/03/2024) Resolved Problems Problem Noted Date Diagnosed Date Resolved Date High-risk 11/05/2023 12/24/19 24 Supervision of normal first , antepartum 04/27/2018 11/30/2018 with history of in fertility, antepartum 04/27/2018 11/30/2018 Overview: IVF Cough 08/09/2013 04/27/2018 General counseling for presc ription of oral contraceptives 03/25/2012 04/27/2018 Internal derangement of knee 12/30/2011 09/22/2018 Acne 04/27/2018 Overview: [facility] documented as of this encounter (statuses as of 04/03/2024) Immunizations Name Administration Dates Next Due RSV [...] money to get more. Never true 12/11/2023 [place] Depression Scale Answer Date Recorded [place] Depression Scale Total 8 03/25/2024 The thought [...] Sign Reading Time Taken Comments Blood Pressure 110/72 03/26/2024 3:46 PM EDT Pulse 92 03/26/2024 3:46 PM EDT Temperature 36.7 C (98 F) 03/26/2024 3:46 PM EDT Respiratory Rate 16 03/26/2024 3:46 PM EDT Oxygen Saturation 98% 03/26/2024 3:46 PM EDT Inhaled Oxygen Concentration - - Weight - - Height - - Body Mass Index - - documented in this encounter Patient Instructions * Patient Instructions* Lyle Méndez MD - 03/26/2024 4:04 PM EDT Augmentin 7-10 days Albuterol at night Saline spray cleaning 2 times and then flonase at night Zyrtec daily for 1-2 wks documented in this encounter Progress Notes * Lyle Méndez MD - 03/29/2024 9:19 AM EDT Subjective Lorie Godoy is a 38 year old female. Chief Complaint Patient presents with Acute HPI: Here for a few wks of cough chest congestion Currently , 3rd trimester Denies fever Has allergic rhinitis Didn't try any med - has zyrtec, flonase , at home Also advised to take probiotic since will start antibiotic PMH: Patient Active Problem List Diagnosis Vertigo AMA (advanced maternal age) multigravida 35+ resulting from in vitro fertilization Anxiety during High-risk Antepartum anemia complicating Iron deficiency anemia History of respiratory syncytial virus (RSV) vaccination Current Outpatient Medications Medication Sig Dispense Refill 28-0.8 MG Oral Tablet Take by mouth. Famotidine 20 MG Oral Tablet (Pepcid) Take 1 Tablet by mouth in the morning and 1 Tablet before bedtime. Vitamin B-12 1000 MCG Oral Tablet (Cyanocobalamin) Take 1 Tablet by mouth daily. 90 Tablet 1 Amoxicillin-Pot Clavulanate 875-125 MG Oral Tablet (Augmentin) Take 1 Tablet by mouth in the morning and 1 Tablet before bedtime. Do all this for 10 days. 20 Tablet 0 Fluticasone Propionate 50 MCG/ACT Nasal Suspension (Flonase) Administer 2 Sprays into each nostril in the morning. 16 g 1 Cetirizine HCl 10 MG Oral Tablet (ZyrTEC) Take 1 Tablet by mouth in the morning. 90 Tablet 3 No current facility-administered medications for this visit. Past Medical History: Diagnosis Date Acne [facility] Anxiety Regular counseling Asthma sports-induced; needs inhaler with URIs. no chronic symptoms. anxiety Septic arthritis (HCC) of knee age 5 Past Surgical History: Procedure Laterality Date INFORMATION 06/30/1990 knee surgery for staph infection [facility] TRANSFER INTRAUTERINE 02/2018 Review of patient's allergies indicates: Allergen Reactions Shellfish Allergy Edema airway Fentanyl Nausea/vomiting Gentamicin Unsure- mother told allergic Family History Problem Relation Name Age of Onset Gastro-intestinal disorder Mother diverticulitis Other (Other) Mother ankylosing spondylitis (rheumatology) Hyperlipidemia Father Arrhythmia Father ? 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 [employer] Employer: [employer] Comment: Frisian-speaking, lived in [facility] Tobacco Use Smoking status: Never Smokeless tobacco: Never Vaping Use Vaping status: Never Used Substance and Sexual Activity Alcohol use: Not Currently Comment: socially Drug use: No Sexual activity: Yes Partners: Male Comment: history of infertility, IVF Other Topics Concern Not on file Social History Narrative Not on file Social Determinants of Health Financial Resource Strain: Low Risk (12/11/2023) Financial Resource Strain Do you have any trouble paying for your medications, or do you think you might in the future? (Adult - for ages 18 years and over): No Does your family have trouble paying for medicine? (Household - for ages 0-17 years): Not on file Food Insecurity: No Food Insecurity (12/11/2023) Food Insecurity Do you need food for this week? (Adult - for ages 18 years and over): No Are you able to get enough food for your family? (Household - for ages 0-17 years): Not on file Does your family need food this week? (Household - for ages 0-17 years): Not on file Do you always have enough food for your family? (Household - for ages 0-17 years): Not on file Transportation Needs: No Transportation Needs (12/11/2023) Transportation Needs Do you have trouble getting a ride to medical visits or work? (Adult - for ages 18 years and over):Never True Does your family have a hard time getting a ride to doctors visits? (Household - for ages 0-17 years): Not on file Has lack of transportation kept you from medical appointments, meetings, work, or from getting things needed for daily living? Check all that apply. (Adult - for ages 18 years and over): Not on file Do you (or your family) have trouble finding or paying for a ride (transportation)? (Household - for ages 0-17 years): Not on file Social Connections: Socially Integrated (12/11/2023) Social Connections How often do you feel lonely or isolated from those around you? (Adult - for ages 18 years and over): Sometimes Housing Stability: Low Risk (12/11/2023) Housing Stability Do you currently live in a prison or have no steady place to sleep at night? (Adult - for ages 18 years and over): No Do you think you are at risk of becoming homeless? (Adult - for ages 18 years and over): No Does your family worry about paying for your home or becoming homeless? (Household - for ages 0-17 years): Not on file Are you homeless or worried that you might be in the future? (Adult - for ages 18 years and over): Not on file Are you (or your family) homeless or worried that you might be in the future? (Household - for ages0-17 years): Not on file Review of Systems Constitutional: Positive for activity change and fatigue. Negative for appetite change, chills, diaphoresis, fever and unexpected weight change. HENT: Positive for congestion, postnasal drip, rhinorrhea and sinus pressure. Respiratory: Positive for cough and chest tightness. Negative for shortness of breath and wheezing. Cardiovascular: Negative for chest pain, palpitations and leg swelling. Gastrointestinal: Negative for abdominal distention and abdominal pain. Allergic/Immunologic: Positive for environmental allergies. Psychiatric/Behavioral: Positive for sleep disturbance. Negative for agitation and behavioral problems. The patient is nervous/anxious. Objective BP 110/72 | Pulse 92 | Temp 36.7 C (98 F) | Resp 16 | LMP 06/30/2023 | SpO2 98% Physical Exam Constitutional: General: She is not in acute distress. Appearance: Normal appearance. She is not ill-appearing, toxic-appearing or diaphoretic. Comments: HENT: Head: Normocephalic and atraumatic. Ears: Comments: Fluid bulging TMs Nose: Congestion present. Eyes: Extraocular Movements: Extraocular movements intact. Cardiovascular: Rate and Rhythm: Normal rate and regular rhythm. Pulses: Normal pulses. Heart sounds: Normal heart sounds. Pulmonary: Effort: Pulmonary effort is normal. No respiratory distress. Breath sounds: Rhonchi present. No wheezing or rales. Musculoskeletal: Right lower leg: No edema. Left lower leg: No edema. Neurological: General: No focal deficit present. Mental Status: She is alert and oriented to person, place, and time. Psychiatric: Behavior: Behavior normal. ASSESSMENT/PLAN: Bronchitis, complicated (Primary) Other orders - Amoxicillin-Pot Clavulanate 875-125 MG Oral Tablet (Augmentin); Take 1 Tablet by mouth in the morning and 1 Tablet before bedtime. Do all this for 10 days. - Fluticasone Propionate 50 MCG/ACT Nasal Suspension (Flonase); Administer 2 Sprays into each nostril in the morning. - Cetirizine HCl 10 MG Oral Tablet (ZyrTEC); Take 1 Tablet by mouth in the morning. Augmentin Zyrtec daily Probiotic Flonase prn Lyle Méndez MD documented in this encounter Nursing Notes * Latanya Sepulveda LPN - 03/26/2024 3:45 PM EDT Pt in today for ongoing cough Had a cold over 2 weeks ago & cough has not gone away - got worse over time Coughing so hard, she is vomiting Headache from cough documented in this encounter Plan of Treatment Upcoming Encounters Date Type Department Care Team (Late st Contact Info) Description 04/06/2024 1:00 PM EDT [facility] [address] [place] [address] Tatiana Mendoza Berta [address] [place] [address] 04/06/2024 1:30 PM EDT Office Visit Gynecology/Obstetrics Ronyelsa Leas [address] [place] [address] Rohini Gomez CRNP [address] [place] [address] 04/06/2024 1:45 PM EDT Office Visit Gynecology/Obstetrics UribeTessyesenia Mendoza [address] [place] [address] Leilani Hair CRNP [address] [place] [address] Reji Non Stress Tests Berta [address] [address] 04/07/2024 9:30 AM EDT Pharmacy Pharmacy, [place] [address] [place], [place] [phone] Clinic, [facility] [address] [place] [address] Health Maintenance Due Date Last Done Comments Hepatitis B Vaccine (1 of 3 - 19+ 3-dose series) 2004 HPV/Co-Test 2015 Diabetes Screening 10/20/2016 10/20/2013 Depression Screening 01/16/2020 01/15/2019 Cervical Cancer Screening 01/17/2024 Pap Smear 01/17/2024 01/16/2021, 01/28, 05/31/2014, Additional history exists COVID-19 Vaccine (2023- season) 2024 Influenza Vaccine (FLU shot) (#1) [...] as of this encounter Visit Diagnoses Diagnosis Bronchitis, complicated- Primary Bronchitis, not specified as acute or chronic Allergic rhinitis, unspecified seasonality, unspecified trigger resulting from in vitro fertilization in third trimester documented in this encounter"
--- OUTSIDE RECORDS SUMMARY | 2024-04-30 07:51 | External Medical Summary | Summary of Care ---
Author Name Unknown Organization [facility] Address [address] [place] [address] Phone [phone] Care Team Providers Care Yarn Spinner Name Role Phone Unavailable Primary Care Provider Unavailabl e Reason for Visit * Reason Onset Date Comments Anemia Follow-Up 04/07/2024 Encounter Details Date Type Department Care Team (Late st Contact Info) Description 04/07/2024 9:30 AM EDT Pharmacy Pharmacy, [place] [address] [place] [address] Clinic, Anemia [address] [place] [address] Iron deficiency anemia, unspecified iron deficiency anemia type* Allergies Active Allergy Reactions Criticality Noted Date Comments Fentanyl Nausea/vomiting 09/12/2020 Gentamicin 02/13/2011 Unsure- mother told allergic Shellfish Allergy Edema airway High 09/07/2018 documented as of this encounter (statuses as of 04/07/2024) Medications Medication Sig Dispensed Refills Start Date [...] as of this encounter (statuses as of 04/07/2024) Active Problems Problem Noted Date Diagnosed Date [...] insurance coverage and cost ([place] [address]). Patient aware not all insurances cover this [...] Overview[facility] Last Assessment & Plan: We reviewed slightly [...] as of this encounter (statuses as of 04/07/2024) Resolved Problems Problem Noted Date Diagnosed Date Resolved Date High-risk 11/05/2023 12/24/19 24 Supervision of normal first , antepartum 04/27/2018 11/30/2018 with history of in fertility, antepartum 04/27/2018 11/30/2018 Overview: IVF Cough 08/09/2013 04/27/2018 General counseling for presc ription of oral contraceptives 03/25/2012 04/27/2018 Internal derangement of knee 12/30/2011 09/22/2018 Acne 04/27/2018 Overview: [facility] D[facility] documented as of this encounter (statuses as of 04/07/2024) Immunizations Name Administration Dates Next Due RSV [...] money to get more. Never true 12/11/2023 [place] Depression Scale Answer Date Recorded [place] Depression Scale Total 8 03/25/2024 The thought [...] this encounter Progress Notes * Keely Negro [facility] - 04/07/2024 3:14 PM EDT Patient Phone Numbers Called patient to review labs from 04/06. LMOVM. Hgb: 11.4 g/dL TSAT: 21 % Ferritin: 215 ng/mL B12: 329 pg/mL FA: 11.2 ng/mL Patient is s/p Infed 1gm x 1 on 03/04. Hgb is below target range but much improved. Iron studies within target range. Per chart review, amie is taking B12 1000mcg daily and appears to be tolerating it without issue. Plan: No anemia pharmacological intervention at this time. Anemia Clinic will continue to follow. Thank you for allowing us to participate in the care of thispatient. Thanks, Keely Negro [facility] Clinical Pharmacist [facility] Anemia Clinic (P: [phone]) 04/07/2024 3:14 PM documented in this encounter Plan of Treatment Upcoming Encounters Date Type Department Care Team (Late st Contact Info) Description 04/14/2024 11:00 AM EDT Office Visit Gynecology/Obstetrics Jethro Mendoza [address] [place] [address] Backer, JACOBO Epstein [address] [place] [address] Mone Mendoza Stress Tests Berta [address] [place] [address] 04/15/2024 9:30 AM EDT Pharmacy Pharmacy, [place] [address] [place] [address] Clinic, Anemia [facility] [place] [address] 04/21/2024 2:30 PM EDT Office Visit Gynecology/Obstetrics Jethro Mendoza [address] [place] [address] Bud Cruz MD [address] [place] [address] Mendoza, Non Stress Tests Berta [address] [place] [address] Health Maintenance Due Date Last Done Comments [...]
--- OUTSIDE RECORDS SUMMARY | 2024-04-30 07:51 | External Medical Summary ---
Author Name Unknown Address Unknown Organization [id number]:[facility] [place] [facility] [address]. [facility] [address] Laboratory Report Ordering Provider Test Date Status HUAN HERNANDEZ 04/06/2024 13:05:16 Final Observation Date Value Abnormality Reference (Units ) Status Retic, % (auto) 04/06/2024 13:05:16 2.22 Above high normal 0.80-1.90 (%) Final Reticulocytes, Absolute 04/06/2024 13:05:16 80.8 31.3-100.1 (K/uL) Final Reticulocyte fraction, immature 04/06/2024 13:05:16 24.2 Above high normal 2.5-20.6 (%) Final Reticulocyte HGB 04/06/2024 13:05:16 34.0 29.7-37.4 (pg) Final Performing Location [facility] [place] [address] [place] [address]
--- OUTSIDE RECORDS SUMMARY | 2024-04-30 07:51 | External Medical Summary ---
Author Name Unknown Address Unknown Organization [id number]:[facility] [place] [address] [place] [address] Laboratory Report Ordering Provider Test Date Status HUAN HERNANDEZ 04/06/2024 13:05:16 Final Observation Date Value Abnormality Reference (Units ) Status Vitamin B12 04/06/2024 13:05:16 [id number] (pg/mL) Final Performing Location [facility] [place] - [address] [place] [address]
--- OUTSIDE RECORDS SUMMARY | 2024-04-30 07:51 | External Medical Summary | Summary of Care ---
Author Name Unknown Organization [facility] Address [address] [facility] [place] [address] Phone [phone] Care Team Providers Care Technical Analyst Name Role Phone Unavailable Primary Care Provider Unavailabl e Reason for Visit * Reason Comments Return Visit Encounter Details Date Type Department Care Team (Late st Contact Info) Description 03/25/2024 8:30 AM EDT Office Visit Gynecology/Obstetri carol Mendoza [address] [place] [address] Rohini Gomez CRNP [address] [place] [phone] High-risk in third trimester*; Multigravida of advanced maternal age in third trimester; resulting from in vitro fertilization in third trimester; Anxiety during ; Antepartum anemia complicating Allergies Active Allergy Reactions Criticality Noted Date Comments Fentanyl Nausea/vomiting 09/12/2020 Gentamicin 02/13/2011 Unsure- mother told allergic Shellfish Allergy Edema airway High 09/07/2018 documented as of this encounter (statuses as of 03/25/2024) Medications Medication Sig Dispensed Refills Start Date [...] as of this encounter (statuses as of 03/25/2024) Active Problems Problem Noted Date Diagnosed Date [...] insurance coverage and cost ([place] [address]). Patient aware not all insurances cover this [...] Overview: IV[facility] with embryo transfer date [facility]. Last Assessment & Plan: We reviewed [...] as of this encounter (statuses as of 03/25/2024) Resolved Problems Problem Noted Date Diagnosed Date Resolved Date High-risk 11/05/2023 12/24/19 24 Supervision of normal first , antepartum 04/27/2018 11/30/2018 with history of in fertility, antepartum 04/27/2018 11/30/2018 Overview: IVF Cough 08/09/2013 04/27/2018 General counseling for presc ription of oral contraceptives 03/25/2012 04/27/2018 Internal derangement of knee 12/30/2011 09/22/2018 Acne 04/27/2018 Overview: [facility] documented as of this encounter (statuses as of 03/25/2024) Immunizations Name Administration Dates Next Due RSV [...] money to get more. Never true 12/11/2023 [place] Depression Scale Answer Date Recorded [place] Depression Scale Total 10 10/27/2023 The thought [...] Sign Reading Time Taken Comments Blood Pressure 102/62 03/25/2024 8:32 AM EDT Pulse - - Temperature - - Respiratory Rate - - Oxygen Saturation - - Inhaled Oxygen Concentration - - Weight - - Height - - Body Mass Index - - documented in this encounter Progress Notes * Kirsten Schuster LPN - 03/25/2024 8:33 AM EDT 34w6d Denies vaginal bleeding/rom + movement * Rohini Gomez CRNP - 03/25/2024 8:33 AM EDT 34w6d Baby moving well. No leaking/bleeding or regular ctx. Normal growth scan with MFM earlier this month. Given labor instructions. Wishes to defer flu shot to another visit, currently has a URI. Developed symptoms a few weeks ago,cough is lingering and feeling worse. No fevers. Recommend family medicine appt for further evaluation, will see if this can be scheduled at check out. Feels anxiety is well managed; sees a therapist regularly. Her mom will be coming to help out, and they have close local friends. Plan to start NSTs at 36 weeks. Discussed GBS swab at that time. 2 week return (or can return in 8 days at 36w0d). JACOBO Vick documented in this encounter Plan of Treatment Upcoming Encounters Date Type Department Care Team (Late st Contact Info) Description 03/26/2024 3:40 PM EDT Office Visit [facility] [address] [place] [address] Lyle Méndez MD [address] [place] [address] 04/02/2024 9:30 AM EDT Pharmacy Pharmacy, [place] [address] [place] [address] Clinic, [facility] [address] [place] [address] 04/06/2024 1:30 PM EDT Office Visit Gynecology/Obstetrics Jethro Mendoza [address] [place] [address] Rohini Gomez CRNP [address] [place] [address] 04/06/2024 1:45 PM EDT Office Visit Gynecology/Obstetrics Jethro Mendoza [address] [place] [address] Leilani Hair CRNP [address] [place] [address] Reji, Non Stress Tests Berta [address] [place] [address] Health Maintenance Due Date Last Done Comments Hepatitis B Vaccine (1 of 3 - 19+ 3-dose series) 2004 HPV/Co-Test 2015 Diabetes Screening 10/20/2016 10/20/2013 Depression Screening 01/16/2020 01/15/2019 Cervical Cancer Screening 01/17/2024 Pap Smear 01/17/2024 01/16/2021, 01/28, 05/31/2014, Additional history exists COVID-19 Vaccine ( - 2023- season) 2024 Influenza Vaccine (FLU shot) (#1) [...] Anxiety during Antepartum anemia complicating Anemia, antepartum documented in this encounter
--- OUTSIDE RECORDS SUMMARY | 2024-04-30 07:51 | External Medical Summary ---
Author Name Unknown Address Unknown Organization K[facility] [place] [address] [place] [address] Laboratory Report Ordering Provider Test Date Status HUAN HERNANDEZ 04/06/2024 13:05:16 Final Observation Date Value Abnormality Reference (Units ) Status Folic Acid 04/06/2024 13:05:16 11.2 >4.5 (ng/ mL) Final Performing Location [facility] [place] [address] [place] [address]
--- OUTSIDE RECORDS SUMMARY | 2024-04-30 07:51 | External Medical Summary | Summary of Care ---
Author Name Unknown Organization [facility] Address [address] [place] [address] Phone [phone] Care Team Providers Care Sfdc Technical Architect Name Role Phone Unavailable Primary Care Provider Unavailabl e Reason for Visit * Reason Comments Infusion Infed Encounter Details Date Type Department Care Team (Latest Contact Info) Description 03/04/2024 2:00 PM EDT Hem/Onc Treatment Hematology/Oncology Treatment, [address] [address] Natalie, Chair [address] [address] Iron deficiency anemia, unspecified iron deficiency anemia [...] insurance coverage and cost ([place] [address]). Patient aware not all insurances cover this [...] Overview: [facility]. Last Assessment & Plan: We reviewed slightly [...] of knee 12/30/2011 09/22/2018 Acne 04/27/2018 Overview: [facility] documented as of this encounter (statuses [...] money to get more. Never true 12/11/2023 [place] Depression Scale Answer Date Recorded [place] Depression Scale Total 10 10/27/2023 The thought [...] Mendoza [address] [place] [address] BackerRohini CRNP [address] [place] [address] Mone Mendoza Stress Tests Berta [address] [place] [address] 04/15/2024 9:30 AM EDT Pharmacy Pharmacy, [place] [address] [place], [place] [id number] [facility] [address] [place] [address] 04/21/2024 2:30 PM EDT Office Visit Gynecology/Obstetrics Jethro Mendoza [address] [place] [address] Bud Cruz MD [address] [place] [address] Mone Mendoza Stress Tests Berta [address] [place] [address] Health Maintenance Due Date Last Done Comments [...]
--- OUTSIDE RECORDS SUMMARY | 2024-04-30 07:51 | External Medical Summary ---
Author Name Unknown Address Unknown Organization K01:[facility] - [address] [place] [address] Laboratory Report Ordering Provider Test Date Status HUAN HERNANDEZ 04/06/2024 13:05:16 Final Observation Date Value Abnormality Reference (Units ) Status Ferritin 04/06/2024 13:05:16 215 Above high normal 13 -150 (ng/mL) Final Performing Location [facility] - [address] [place] [address]
--- OUTSIDE RECORDS SUMMARY | 2024-04-30 07:51 | External Medical Summary | Summary of Care ---
Author Name Unknown Organization [facility] Address [address] [place] [address] Phone [phone] Care Team Providers Care Vacuum Frame Operator Name Role Phone Unavailable Primary Care Provider Unavailabl e Reason for Visit * Reason Comments Infusion Infed Encounter Details Date Type Department Care Team (Latest Contact Info) Description 03/04/2024 2:00 PM EDT Hem/Onc Treatment Hematology/Oncology Treatment, [address] [address] Natalie, Chair [address] [address] Iron deficiency anemia, unspecified iron deficiency anemia [...] insurance coverage and cost ([place] [address]). Patient aware not all insurances cover this [...] Overview: [facility]. Last Assessment & Plan: We [...] of knee 12/30/2011 09/22/2018 Acne 04/27/2018 Overview: [facility] [facility] documented as of this encounter (statuses as of 04/14/2024) Immunizations Name Administration Dates Next Due Seasonal [...] money to get more. Never true 12/11/2023 [place] Depression Scale Answer Date Recorded [place] Depression Scale Total 10 10/27/2023 The thought [...] Mendoza [address] [place] [address] BackerRohini CRNP [address] [place] [address] Mone Mendoza Stress Tests Berta [address] [place] [address] 04/15/2024 9:30 AM EDT Pharmacy Pharmacy, [place] [address] [place], [place] [id number] [facility] [address] [place] [address] 04/21/2024 2:30 PM EDT Office Visit Gynecology/Obstetrics Jethro Mendoza [address] [place] [address] Bud Cruz MD [address] [place] [address] Mone Mendoza Stress Tests Berta [address] [place] [address] Health Maintenance Due Date Last Done Comments [...]
--- OUTSIDE RECORDS SUMMARY | 2024-04-30 07:51 | External Medical Summary ---
Author Name Unknown Address Unknown Organization K01[facility] [place] [address] [place] [address] Laboratory Report Ordering Provider Test Date Status MARYHUAN GALVAN 04/06/2024 13:05:16 Final Observation Date Value Abnormality Reference (Units ) Status Iron 04/06/2024 13:05:16 75 33-151 (ug /dL) Final Iron-binding capacity 04/06/2024 13:05:16 354 250-425 (ug/dL) Final Transferrin Sat % 04/06/2024 13:05:16 21 15 -55 (%) Final Performing Location [facility] [place] [address] [place] [address]
--- OUTSIDE RECORDS SUMMARY | 2024-04-30 07:51 | External Medical Summary ---
Author Name Unknown Address Unknown Organization K01:[facility] [place] [address] [place] [address] Laboratory Report Ordering Provider Test Date Status BELL SORTO 04/06/2024 14:30:07 Final Observation Date Value Abnormality Reference (Units ) Status Streptococcus agalactiae DNA [Presence] in Specimen by CIPRIANO with probe detection 04/06/2024 14:30:07 Negative Negative Final No Group B Streptococcus det ected by culture-enhanced PCR (amplified probe). GBS GBSCT - [facility] 04/06/2024 14:30:07 0.0 Final GBS SPCCT - [facility] 04/06/2024 14:30:07 32.0 Final Performing Location [facility] [place] [address] [place] [address]
--- OUTSIDE RECORDS SUMMARY | 2024-04-30 07:51 | External Medical Summary | Summary of Care ---
Author Name Unknown Organization [facility] Address [address] [place] [address] Phone [phone] Care Team Providers Care Brewery Technician Name Role Phone Unavailable Primary Care Provider Unavailabl e Reason for Visit * Reason Comments Infusion Infed Encounter Details Date Type Department Care Team (Latest Contact Info) Description 03/04/2024 2:00 PM EDT Hem/Onc Treatment Hematology/Oncology Treatment, [address] [address] Natalie, Chair [address] [address] Iron deficiency anemia, unspecified iron deficiency anemia [...] insurance coverage and cost ([place] [address]). Patient aware not all insurances cover this [...] Overview: [facility]. Last Assessment & Plan: We [...] of knee 12/30/2011 09/22/2018 Acne 04/27/2018 Overview: [facility] documented as of this encounter (statuses [...] money to get more. Never true 12/11/2023 [place] Depression Scale Answer Date Recorded [place] Depression Scale Total 10 10/27/2023 The thought [...] Mendoza [address] [place] [address] BackerRohini CRNP [address] [place] [address] Mone Mendoza Stress Tests Berta [address] [place] [address] 04/15/2024 9:30 AM EDT Pharmacy Pharmacy, [place] [address] [place], [place] [phone] [facility] [address] [place] [address] 04/21/2024 2:30 PM EDT Office Visit Gynecology/Obstetrics Jethro Mendoza [address] [place] [address] Bud Cruz MD [address] [place] [address] Mone Mendoza Stress Tests Berta [address] [place] [address] Health Maintenance Due Date Last Done Comments [...]
--- OUTSIDE RECORDS SUMMARY | 2024-04-30 07:51 | External Medical Summary ---
Author Name Unknown Address Unknown Organization K[facility] [place] [address] [place] [facility] [place] [address] Laboratory Report Ordering Provider Test Date Status HUAN HERNANDEZ 04/06/2024 13:05:16 Final Observation Date Value Abnormality Reference (Units ) Status SYNC LEUKOCYTES IN BLOOD BY AUTOMATED COUNT 04/06/2024 13:05:16 7.63 4.00-10.80 (K/uL) Final Segs 04/06/2024 13:05:16 62.3 40.0-75.0 (%) Final Lymphs % 04/06/2024 13:05:16 22.5 18.0-42.0 (%) Final Monos 04/06/2024 13:05:16 10.2 1.0-11.0 (%) Final Eosinophils 04/06/2024 13:05:16 1.4 0.0-6.0 (%) Final Basos 04/06/2024 13:05:16 0.7 0.0-2.0 (%) Final Immature Granulocyte, Percent 04/06/2024 13:05:16 2.9 Above high normal 0.0-2.0 (%) Final Absolute Segs 04/06/2024 13:05:16 4.75 1.80-7.70 (K/uL) Final Lymphs, absolute 04/06/2024 13:05:16 1.72 1.00-4.80 (K/ul) Final Monos, Abs 04/06/2024 13:05:16 0.78 0.00-1.10 (K/uL) Final Eos, Abs 04/06/2024 13:05:16 0.11 0.00-0.70 (K/uL) Final Basos, Abs 04/06/2024 13:05:16 0.05 0.00-0.20 (K/uL) Final Immature Granulocytes, Number 04/06/2024 13:05:16 0.22 Above high normal 0.00-0.20 (K/uL) Final Performing Location [facility] [place] [address] [facility] [address]
--- OUTSIDE RECORDS SUMMARY | 2024-04-30 07:52 | External Medical Summary | Summary of Care ---
Author Name Unknown Organization [facility] Address [address] [place] [address] Phone [phone] Care Team Providers Care Heat Treat Puller Name Role Phone Unavailable Primary Care Provider Unavailabl e Encounter Details Date Type Department Care Team (Latest Contact Info) Description 03/04/2024 8:45 AM EDT Office Visit Closing Manager Obstetrics Maternal Medicine, [facility] [address] [place] [address] Colleen Blanco, DO [address] [place] [address] Multigravida of advanced maternal age in third trimester*; resulting from in vitro fertilization in third trimester; Ultrasound for screening for growth restriction; 31 weeks gestation of Allergies Active Allergy Reactions Criticality Noted Date Comments Fentanyl Nausea/vomiting 09/12/2020 Gentamicin 02/13/2011 Unsure- mother told allergic Shellfish Allergy Edema airway High 09/07/2018 documented as of this encounter (statuses as of 03/04/2024) Medications Medication Sig Dispensed Refills Start Date [...] as of this encounter (statuses as of 03/04/2024) Active Problems Problem Noted Date Diagnosed Date [...] insurance coverage and cost ([place] [address]). Patient aware not all insurances cover this [...] Overview: [facility]. Last Assessment & Plan: We reviewed [...] as of this encounter (statuses as of 03/04/2024) Resolved Problems Problem Noted Date Diagnosed Date Resolved Date High-risk 11/05/2023 12/24/19 24 Supervision of normal first , antepartum 04/27/2018 11/30/2018 with history of in fertility, antepartum 04/27/2018 11/30/2018 Overview: IVF Cough 08/09/2013 04/27/2018 General counseling for presc ription of oral contraceptives 03/25/2012 04/27/2018 Internal derangement of knee 12/30/2011 09/22/2018 Acne 04/27/2018 Overview: [facility] documented as of this encounter (statuses as of 03/04/2024) Immunizations Name Administration Dates Next Due Seasonal [...] money to get more. Never true 12/11/2023 [place] Depression Scale Answer Date Recorded [place] Depression Scale Total 10 10/27/2023 The thought [...] No 12/11/2023 Does the household have a [facility] source of income? (Household - for ages [...] as of this encounter Progress Notes * Colleen Blanco, DO - 03/04/2024 9:20 AM EDT Lorie presented today at 31w6d for an ultrasound for the following indications: Multigravida of advanced maternal age in third trimester resulting from in vitro fertilization in third trimester Ultrasound for screening for growth restriction 31 weeks gestation of Ultrasound summary: Patient presented at 31w 6d for growth assessment. Normal growth with EFW 2204 g at 86%ile. Normal SHALOM at 9.9 cm. Cephalic presentation. I reviewed the ultrasound images. Lorie was given the opportunity to meet with me if she had anyquestions. Please refer to the ultrasound report for additional details about today's ultrasound examination. RECOMMENDATIONS: Follow up with MFM for ultrasound as clinically indicated. See prior formal MFM consultation note. Thank you for allowing us to participate in the care of this patient. Please call with any questions. Colleen Blanco DO 03/04/2024 9:20 AM documented in this encounter Plan of Treatment Upcoming Encounters Date Type Department Care Team (Late st Contact Info) Description 03/04/2024 2:00 PM EDT Hem/Onc Treatment Hematology/Oncology Treatment, [place] [address] [facility] [phone] Natalie, Chair 6 Hem Onc [address] [facility] [address] 03/10/2024 11:15 AM EDT Office [facility] [address] [place] [address] Leilani Hair CRNP [address] [place] [address] Health Maintenance Due Date Last Done Comments [...] from in vitro fertilization in third trimester Ultrasound for screening for growth restriction screening for growth retardation using ultrasonics 31 weeks gestation of state, incidental documented in this encounter
--- OUTSIDE RECORDS SUMMARY | 2024-04-30 07:52 | External Medical Summary | Summary of Care ---
Author Name Unknown Organization [facility] Address [address] [facility] [address] Phone [phone] Care Team Providers Care Button Station Worker Name Role Phone Unavailable Primary Care Provider Unavailabl e Reason for Visit * Reason Comments Return Visit Encounter Details Date Type Department Care Team (Latest Contact Info) Description 02/26/2024 3:15 PM EDT Office Visit Gynecology/Obstetric s Jethro Mendoza [address] [place] [address] Leilani Hair CRNP [address] [place] [address] Multigravida of advanced maternal age in third trimester*; resulting from in vitro fertilization in third trimester; Anxiety during ; High-risk in third trimester; Antepartum anemia complicating Allergies Active Allergy Reactions Criticality Noted Date Comments Fentanyl Nausea/vomiting 09/12/2020 Gentamicin 02/13/2011 Unsure- mother told allergic Shellfish Allergy Edema airway High 09/07/2018 documented as of this encounter (statuses as of 02/26/2024) Medications Medication Sig Dispensed Refills Start Date [...] as of this encounter (statuses as of 02/26/2024) Active Problems Problem Noted Date Diagnosed Date [...] insurance coverage and cost [place] [address]). Patient aware not all insurances cover this [...] Overview: [facility]. Last Assessment & Plan: We reviewed [...] as of this encounter (statuses as of 02/26/2024) Resolved Problems Problem Noted Date Diagnosed Date Resolved Date High-risk 11/05/2023 12/24/19 24 Supervision of normal first , antepartum 04/27/2018 11/30/2018 with history of in fertility, antepartum 04/27/2018 11/30/2018 Overview: IVF Cough 08/09/2013 04/27/2018 General counseling for presc ription of oral contraceptives 03/25/2012 04/27/2018 Internal derangement of knee 12/30/2011 09/22/2018 Acne 04/27/2018 Overview: [facility] documented as of this encounter (statuses as of 02/26/2024) Immunizations Name Administration Dates Next Due Seasonal [...] money to get more. Never true 12/11/2023 [place] Depression Scale Answer Date Recorded [place] Depression Scale Total 10 10/27/2023 The thought [...] No 12/11/2023 Does the household have a [facility] source of income? (Household - for [...] Sign Reading Time Taken Comments Blood Pressure 102/66 02/26/2024 3:17 PM EDT Pulse - - Temperature - - Respiratory Rate - - Oxygen Saturation - - Inhaled Oxygen Concentration - - Weight - - Height - - Body Mass Index - - documented in this encounter Progress Notes * Leilani Hair CRNP - 02/26/2024 3:44 PM EDT 30w6d Discussed flu/COVID/RSV vaccines. Plans to get all of them during . Feeling well today. Baby is active. Was a little quiet over the weekend. Discussed [facility], call with concerns or less than 10 movements in 2 hours. Denies contractions, bleeding, LOF. Has iron infusion next week, has growth u/s with MFM next week. JACOBO Ramsey * Lindsey Ugarte CMA - 02/26/2024 3:17 PM EDT 30w6d Denies any concerns. ?[place] time for flu/covid shot during . documented in this encounter Plan of Treatment Upcoming Encounters Date Type Department Care Team (Late st Contact Info) Description 03/04/2024 8:45 AM EDT [facility] [address] [place] [phone] 03/04/2024 10:00 AM EDT Pharmacy Pharmacy, [place] [address] [place] [address] Clinic, [facility] [address] [place] [address] 03/04/2024 2:00 PM EDT Hem/Onc Treatment Hematology/Oncology Treatment, [address] [address] Natalie, Chair [address] [address] 03/10/2024 11:15 AM EDT Office Visit Gynecology/Obstetrics Jethro Leas [address] [place] [address] Leilani Hair CRNP [address] [place] [address] Health Maintenance Due Date Last Done Comments Hepatitis B Vaccine (1 of 3 - 19+ 3-dose series) 2004 HPV/Co-Test 2015 Diabetes Screening 10/20/2016 10/20/2013 Depression Screening 01/16/2020 01/15/2019 COVID-19 Vaccine ( season) 2023 Cervical Cancer Screening 01/17/2024 Pap Smear 01/17/2024 [...] third trimester Antepartum anemia complicating Anemia, antepartum documented in this encounter
--- OUTSIDE RECORDS SUMMARY | 2024-04-30 07:52 | External Medical Summary | Summary of Care ---
Author Name Unknown Organization [facility] Address [address] [place] [address] Phone [phone] Care Team Providers Care Operations Welder Name Role Phone Unavailable Primary Care Provider Unavailabl e Reason for Visit * Reason Comments Infusion Infed Encounter Details Date Type Department Care Team (Latest Contact Info) Description 03/04/2024 2:00 PM EDT Hem/Onc Treatment Hematology/Oncology Treatment, [address] [address] Natalie, Chair [address] [address] Iron deficiency anemia, unspecified iron deficiency anemia [...] insurance coverage and cost ([place] [address]). Patient aware not all insurances cover this [...] Overview: [facility] Last Assessment & Plan: [...] of knee 12/30/2011 09/22/2018 Acne 04/27/2018 Overview: [place] [facility] [facility] documented as of this encounter (statuses [...] money to get more. Never true 12/11/2023 Pep Depression Scale Answer Date Recorded Pep Depression Scale Total 10 10/27/2023 The thought [...] Care Team (Late st Contact Info) Description 03/10/2024 11:15 AM EDT Office Visit Gynecology/Obstetrics Uribeelsa Mendoza [address] [place] [address] Leilani Hair CRNP [address] [place] [address] Health Maintenance Due Date Last Done Comments Hepatitis B Vaccine (1 of 3 - 19+ 3-dose series) 2004 HPV/Co-Test 2015 Diabetes Screening 10/20/2016 10/20/2013 Depression Screening 01/16/2020 01/15/2019 Cervical Cancer Screening 01/17/2024 Pap Smear 01/17/2024 01/16/2021, 01/28, 05/31/2014, Additional history exists COVID-19 Vaccine (2022- season) 2024 Influenza Vaccine (FLU shot) (#1) [...] Primary documented in this encounter Administered Medications Active Administered Medications - up to 3 most recent administrations Medication Order MAR Action Action Date Dose Rate Site EPINEPHrine 1 MG/ML inj 0.3 mg 0.3 mg, Intramuscular, ONCE PRN Other, Hypersensitivity Reaction or Anaphylaxis, Starting on Fri03/04/24 at 1431, Until Fri03/05/24 at 1430, For 24 hours Famotidine (Pepcid) inj 20 mg 20 mg, IV Push, ONCE PRN Other, Hypersensitivity Reaction, Starting on Fri03/04/24 at 1431, Until Fri03/05/24 at 1430, For 24 hours, Give IV push over 2 minutes. hEParin 100 UNIT/ML Lock Flush inj 500 Units 500 Units (5 mL), IV Lock, PRN Other, IV Flush, Starting on Fri03/04/24 at 1431, Until Fri03/05/24 at 1430, For 24 hours, Do not flush if lock, PICC, or central line not in place; IV infusing or unable to flush. Hydrocortisone Sod Suc (PF) (Solu-Cortef) inj 100 mg 100 mg, IV Push, ONCE PRN Other, Hypersensitivity Reaction, Starting on Fri03/04/24 at 1431, Until Fri03/05/24 at 1430, For 24 hours NSS infusion Intravenous, at 50 mL/hr, PRN, Starting on Fri03/04/24 at 1545, Until Discontinued, Maintenance line Start Infusion 03/04/2024 2:39 PM EDT 50 mL/hr oxygen GAS Inhalation, OXYGEN, First dose on Fri03/04/24 at 1600, Until Discontinued, Device/Managed by: Low Flow Device, Goal SPO2 (%): 91-95, Starting Device: Nasal Cannula, Initial Flow Rate (LPM): 2, Lowest Support: Nasal Cannula: Flow 0-6 LPM. Titrate up/down by 1 LPM., Higher Support: Non-Rebreather (NRB) Mask: Minimum of 10 LPM. Titrate to maintain bag inflation., Titration Interval: Q2 minutes and as needed., Notify Provider: For sudden DECREASE in resting SPO2 to less than 85% and when escalating delivery device., Wean patient off Oxygen when the oxygen saturation is greater than or equal to 93% sodium chloride 0.9 % flush central line 10 mL 10 mL, IV Push, PRN Other, IV Flush, Starting on Lore[place] 03/04/24 at 1431, Until Fri03/05/24 at 1430, For 24 hours, Do not flush if lock, PICC, or central line not in place; IV infusing or unable to flush. Inactive Administered Medications - up to 3 [...] Given 03/04/2024 2:59 PM EDT 125 mg documented in this encounter
--- OUTSIDE RECORDS SUMMARY | 2024-04-30 07:52 | External Medical Summary | Summary of Care ---
Author Name Unknown Organization [facility] Address [address] [place] [address] Phone [phone] Care Team Providers Care Senior Principal Name Role Phone Unavailable Primary Care Provider Unavailabl e Reason for Referral * Evaluate & Treat - Unlimited Visits (Within 10 days (routine)) - Authorized Specialty Diagnoses / Procedures Referred By Raheem t Referred To Contact Pharmacist / Pharmacy Diagnoses RAJAT (iron deficiency anemia) Rohini Gomez CRNP [address] [place] [address] Referral ID Status Reason Start Date Expiration Date Visits Requested Visits Authorized [id number] Authorized Specialty Services Required 02/12/2024 08/10/2024 99 99 Question Answer Referral Priority Within 10 days (routine) Where should this appointment be scheduled? [facility] Referring Provider Role: Specialist Specialty: control room agent Reason for Referral: Anemia Comments Pharmacist Medication Therapy Management: Iron deficiency anemia Ventura Redd RN Reason for Visit * Reason Onset Date Comments Blood Management Program 02/12/2024 Encounter Details Date Type Department Care Team (Late st Contact Info) Description 02/12/2024 Telephone Patient Blood Management, [place] [address] [place] [address] Rohini Gomez CRNP [address] [place] [phone] Blood Management Program Allergies Active Allergy Reactions Criticality Noted Date Comments Fentanyl Nausea/vomiting 09/12/2020 Gentamicin 02/13/2011 Unsure- mother told allergic Shellfish Allergy Edema airway High 09/07/2018 documented as of this encounter (statuses as of 03/02/2024) Medications Medication Sig Dispensed Refills Start Date End Date Status 28-0.8 MG Oral Tablet Take by mouth. Active Famotidine 20 MG Oral Tablet (Pepcid) Take 1 Tablet by mouth in the morning and 1 Tablet before bedtime. Active documented as of this encounter (statuses as of 03/02/2024) Active Problems Problem Noted Date Diagnosed Date [...] insurance coverage and cost ([place] [address]). Patient aware not all insurances cover this [...] Overview: [facility]. Last Assessment & Plan: [...] as of this encounter (statuses as of 03/02/2024) Resolved Problems Problem Noted Date Diagnosed Date Resolved Date High-risk 11/05/2023 12/24/19 24 Supervision of normal first , antepartum 04/27/2018 11/30/2018 with history of in fertility, antepartum 04/27/2018 11/30/2018 Overview: IVF Cough 08/09/2013 04/27/2018 General counseling for presc ription of oral contraceptives 03/25/2012 04/27/2018 Internal derangement of knee 12/30/2011 09/22/2018 Acne 04/27/2018 Overview: [place] [facility] [facility] documented as of this encounter (statuses as of 03/02/2024) Immunizations Name Administration Dates Next Due Seasonal [...] money to get more. Never true 12/11/2023 [place] Depression Scale Answer Date Recorded [place] Depression Scale Total 10 10/27/2023 The thought [...] on file documented as of this encounter Miscellaneous Notes * Telephone Encounter - Ventura Redd RN - 02/12/2024 8:22 AM EDT Recommend IV iron per OB MTM guidelines. Patient is agreeable to infusion at [facility]. documented in this encounter Plan of Treatment Upcoming Encounters Date Type Department Care Team (Late st Contact Info) Description 03/04/2024 8:45 AM EDT Imaging Maternal Medicine Imaging, [facility] [address] [phone] 03/04/2024 10:00 AM EDT Pharmacy Pharmacy, [place] [address] [place] [address] Clinic, [address] [address] 03/04/2024 2:00 PM EDT Hem/Onc Treatment Hematology/Oncology Treatment, [address] [address] Natalie, Chair [address] [address] 03/10/2024 11:15 AM EDT Office Visit Gynecology/Obstetrics [facility] [address] [address] Leilani Hair CRNP [address] [facility] [place] [address] Scheduled Referrals Name Type Priority Associated Diagnoses Orde r Schedule PHARMACIST MEDS THERAPY MGMT REFERRAL OP Referral Within 10 days (routine) RAJAT (iron deficiency anemia) Ordered: 02/12/2024 Health Maintenance Due Date Last Done Comments [...] as of this encounter Visit Diagnoses Diagnosis RAJAT (iron deficiency anemia)- Primary Iron deficiency anemia, unspecified documented in this encounter
--- OUTSIDE RECORDS SUMMARY | 2024-04-30 07:52 | External Medical Summary | Summary of Care ---
Author Name Unknown Organization [facility] Address [address] [place] [address] Phone [phone] Care Team Providers Care Rail Project Engineer Name Role Phone Unavailable Primary Care Provider Unavailabl e Reason for Visit * Reason Onset Date Comments Status Check Anemia Follow-Up 03/15/2024 Encounter Details Date Type Department Care Team (Late st Contact Info) Description 03/15/2024 2:30 PM EDT Pharmacy Pharmacy, [place] [address] [place], [place] [id number] Clinic, An[facility] [address] [place] [address] Iron deficiency anemia, unspecified iron deficiency anemia type* Allergies Active Allergy Reactions Criticality Noted Date Comments Fentanyl Nausea/vomiting 09/12/2020 Gentamicin 02/13/2011 Unsure- mother told allergic Shellfish Allergy Edema airway High 09/07/2018 documented as of this encounter (statuses as of 03/15/2024) Medications Medication Sig Dispensed Refills Start Date [...] as of this encounter (statuses as of 03/15/2024) Active Problems Problem Noted Date Diagnosed Date [...] insurance coverage and cost ([place] [address]). Patient aware not all insurances cover this [...] Overview: [facility]. Last Assessment & Plan: We reviewed [...] as of this encounter (statuses as of 03/15/2024) Resolved Problems Problem Noted Date Diagnosed Date Resolved Date High-risk 11/05/2023 12/24/19 24 Supervision of normal first , antepartum 04/27/2018 11/30/2018 with history of in fertility, antepartum 04/27/2018 11/30/2018 Overview: IVF Cough 08/09/2013 04/27/2018 General counseling for presc ription of oral contraceptives 03/25/2012 04/27/2018 Internal derangement of knee 12/30/2011 09/22/2018 Acne 04/27/2018 Overview: [facility] documented as of this encounter (statuses as of 03/15/2024) Immunizations Name Administration Dates Next Due RSV [...] money to get more. Never true 12/11/2023 [place] Depression Scale Answer Date Recorded [place] Depression Scale Total 10 10/27/2023 The thought [...] No 12/11/2023 Does the household have a [facility] source of income? (Household - for [...] as of this encounter Progress Notes * Nelly Arreaga RPh - 03/15/2024 1:46 PM EDT CBCd, ferritin, iron screen, retic panel, B12, FA ordered for 04/01/24. Nelly Arreaga, PharmD, [facility] Clinical Pharmacist [facility] (P: [phone]) 03/15/2024 1:46 PM * Fruit Press Operator, CHAZ Shelby - 03/15/2024 9:45 AM EDT Patient Phone Numbers Call to patient to schedule labs. Spoke with patient who verbalized understanding. Patient received Infed on 03/04. Labs due on 04/01. GA: [id number] Estimated Date of Delivery: 04/30/24 Pharmacist - please place appropriate lab orders. Thank you, Mariaelena Macdonald Locomotive Engineer Diesel I [facility] 03/15/2024,9:46 AM documented in this encounter Plan of Treatment Upcoming Encounters Date Type Department Care Team (Late st Contact Info) Description 03/25/2024 8:30 AM EDT Office Visit Gynecology/Obstetrics [facility] [place] [address] [place], JACOBO Epstein [address] [place] [address] 04/02/2024 9:30 AM EDT Pharmacy Pharmacy, [place] [address] [place] [address] Clinic, Anemia [address] [place] [address] Scheduled Orders Name Type Priority Associated Diagnoses Orde r Schedule CBC WITH WBC DIFFERENTIAL Lab Routine Iron deficiency anemia, unspecified iron deficiency anemia type Expected: 04/01/2024, Expires: 02/12/2025 IRON SCREEN, INCLUDING TIBC Lab Routine Iron deficiency anemia, unspecified iron deficiency anemia type Expected: 04/01/2024, Expires: 02/12/2025 FERRITIN Lab Routine Iron deficiency anemia, unspecified iron deficiency anemia type Expected: 04/01/2024, Expires: 02/12/2025 RETICULOCYTE PANEL Lab Routine Iron deficiency anemia, unspecified iron deficiency anemia type Expected: 04/01/2024, Expires: 02/12/2025 FOLIC ACID Lab Routine Iron deficiency anemia, unspecified iron deficiency anemia type Expected: 04/01/2024, Expires: 02/12/2025 VITAMIN B12 Lab Routine Iron deficiency anemia, unspecified iron deficiency anemia type Expected: 04/01/2024, Expires: 02/12/2025 Health Maintenance Due Date Last Done Comments [...]
--- OUTSIDE RECORDS SUMMARY | 2024-04-30 07:52 | External Medical Summary | Summary of Care ---
Author Name Unknown Organization [facility] Address [address] [place] [address] Phone [phone] Care Team Providers Care Ferryboat Operator Cable Name Role Phone Unavailable Primary Care Provider Unavailabl e Encounter Details Date Type Department Care Team (Latest Contact Info) Description 03/04/2024 8:45 AM EDT Office Visit Pharmacy Coordinator Obstetrics Maternal Medicine, [facility] [address] [place] [address] Colleen Blanco, DO [address] [place] [address] Multigravida of advanced maternal age in third [...] insurance coverage and cost ([place] [address]). Patient aware not all insurances cover this [...] Overview: [facility]. Last Assessment & Plan: We [...] money to get more. Never true 12/11/2023 [place] Depression Scale Answer Date Recorded [place] Depression Scale Total 10 10/27/2023 The thought [...] No 12/11/2023 Does the household have a [facility] source of income? (Household - for ages [...] Team (Late st Contact Info) Description 03/04/2024 10:00 AM EDT Pharmacy Pharmacy, [place] [address] [place] [address] Clinic, [place] [address] [place] [address] 03/04/2024 2:00 PM EDT Hem/Onc Treatment Hematology/Oncology Treatment, [address] [phone] Natalie, Chair 6 Hem Onc [facility] [address] [place] [address] 03/10/2024 11:15 AM EDT Office Visit Gynecology/Obstetrics [facility] [address] [place] [address] Leilani Hair CRNP [address] [place] [address] Health Maintenance Due Date Last Done Comments [...]
--- OUTSIDE RECORDS SUMMARY | 2024-04-30 07:52 | External Medical Summary | Summary of Care ---
Author Name Unknown Organization [facility] Address [address] [place] [address] Phone [phone] Care Team Providers Care Esl Professor Name Role Phone Unavailable Primary Care Provider Unavailabl e Reason for Visit * Reason Comments Return Visit Encounter Details Date Type Department Care Team (Late st Contact Info) Description 03/10/2024 11:15 AM EDT Office Visit Gynecology/Obstetric s Jethro Mendoza [address] [place] [address] Leilani Hair CRNP [address] [place] [address] Multigravida of advanced maternal age in third trimester*; resulting from in vitro fertilization, antepartum; Anxiety during ; High-risk in third trimester; Antepartum anemia complicating ; Need for RSV vaccination Allergies Active Allergy Reactions Criticality Noted Date Comments Fentanyl Nausea/vomiting 09/12/2020 Gentamicin 02/13/2011 Unsure- mother told allergic Shellfish Allergy Edema airway High 09/07/2018 documented as of this encounter (statuses as of 03/10/2024) Medications Medication Sig Dispensed Refills Start Date [...] as of this encounter (statuses as of 03/10/2024) Active Problems Problem Noted Date Diagnosed Date [...] insurance coverage and cost [place] [address]). Patient aware not all insurances cover this [...] Overview: [facility]. Last Assessment & Plan: We reviewed [...] as of this encounter (statuses as of 03/10/2024) Resolved Problems Problem Noted Date Diagnosed Date Resolved Date High-risk 11/05/2023 12/24/19 24 Supervision of normal first , antepartum 04/27/2018 11/30/2018 with history of in fertility, antepartum 04/27/2018 11/30/2018 Overview: IVF Cough 08/09/2013 04/27/2018 General counseling for presc ription of oral contraceptives 03/25/2012 04/27/2018 Internal derangement of knee 12/30/2011 09/22/2018 Acne 04/27/2018 Overview: [place] [facility] documented as of this encounter (statuses as of 03/10/2024) Immunizations Name Administration Dates Next Due RSV [...] money to get more. Never true 12/11/2023 [place] Depression Scale Answer Date Recorded [place] Depression Scale Total 10 10/27/2023 The thought [...] Sign Reading Time Taken Comments Blood Pressure 116/66 03/10/2024 11:17 AM EDT Pulse - - Temperature - - Respiratory Rate - - Oxygen Saturation - - Inhaled Oxygen Concentration - - Weight - - Height - - Body Mass Index - - documented in this encounter Progress Notes * Lindsey Ugarte CMA - 03/10/2024 11:39 AM EDT Patient here for RSV injection. Patient doing well no complaints. Injection given IM as ordered. Patient tolerated well. Patient to follow up as directed. Patient instructed to call if any complications. Patient verbalized understanding of instructions given and her follow up appt for BRIANNA Injection site: Left Deltoid Medication Source: Dispensed stock medication * Leilani Hair CRNP - 03/10/2024 11:30 AM EDT 32w5d Feeling well. Baby is active. Denies contractions, bleeding, LOF. RSV vaccine given today. JACOBO Ramsey * Lindsey Ugarte CMA - 03/10/2024 11:17 AM EDT 32w5d Difficulty swallowing pills recently in the last 2 weeks. documented in this encounter Plan of Treatment Upcoming Encounters Date Type Department Care Team (Late st Contact Info) Description 03/15/2024 2:30 PM EDT Pharmacy Pharmacy, [address] [address] Clinic, [address] [address] 03/25/2024 8:30 AM EDT Office Visit Gynecology/Obstetrics [facility] [address] [address] BackRohini funez CRNP [address] [address] Health Maintenance Due Date Last Done Comments [...] third trimester- Primary resulting from in vitro fertilization, antepartum Anxiety during High-risk in third trimester Antepartum anemia complicating Anemia, antepartum Need for RSV vaccination Need for prophylactic vaccination and inoculation against respiratory syncytial virus documented in this encounter
--- OUTSIDE RECORDS SUMMARY | 2024-04-30 07:53 | External Medical Summary | Summary of Care ---
Author Name Unknown Organization [facility] Address [address] [facility] [address] Phone [phone] Care Team Providers Care Manager Erp Name Role Phone Unavailable Primary Care Provider Unavailabl e Reason for Visit * Reason Onset Date Comments Follow Up 02/12/2024 Encounter Details Date Type Department Care Team (Late st Contact Info) Description 02/12/2024 Telephone Gynecology/Obstetrics [facility] [address] [place] [address] Rohini Gomez CRNP [address] [place] [address] Follow Up Allergies Active Allergy Reactions Criticality Noted Date Comments Fentanyl Nausea/vomiting 09/12/2020 Gentamicin 02/13/2011 Unsure- mother told allergic Shellfish Allergy Edema airway High 09/07/2018 documented as of this encounter (statuses as of 02/12/2024) Medications Medication Sig Dispensed Refills Start Date [...] as of this encounter (statuses as of 02/12/2024) Active Problems Problem Noted Date Diagnosed Date Antepartum anemia complicating 024 Overview: Hgb 10.9 [...] insurance coverage and [place] [address]). Patient aware not all insurances cover this [...] Overview: [facility]. Last Assessment & Plan: We reviewed slightly [...] as of this encounter (statuses as of 02/12/2024) Resolved Problems Problem Noted Date Diagnosed Date Resolved Date High-risk 11/05/2023 12/24/19 24 Supervision of normal first , antepartum 04/27/2018 11/30/2018 with history of in fertility, antepartum 04/27/2018 11/30/2018 Overview: IVF Cough 08/09/2013 04/27/2018 General counseling for presc ription of oral contraceptives 03/25/2012 04/27/2018 Internal derangement of knee 12/30/2011 09/22/2018 Acne 04/27/2018 Overview: [place] [facility] documented as of this encounter (statuses as of 02/12/2024) Immunizations Name Administration Dates Next Due Seasonal [...] money to get more. Never true 12/11/2023 [place] Depression Scale Answer Date Recorded [place] Depression Scale Total 10 10/27/2023 The thought [...] encounter Miscellaneous Notes * Telephone Encounter - Velvet Benoit RN - 02/12/2024 9:00 AM EDT Patient called and made aware. Patient verbalized understanding. Updated pharmacy. * Telephone Encounter - Rohini Gomez CRNP - 02/12/2024 8:12 AM EDT Blood mgmt recommends PO B12 daily - will send this to her pharmacy. Please let me know which pharmacy. JACOBO Vick documented in this encounter Plan of Treatment Upcoming Encounters Date Type Department Care Team (Late st Contact Info) Description 02/26/2024 3:15 PM EDT Office Visit Gynecology/Obstetrics Jethro Mendoza [address] [place] [address] Leilani Hair CRNP [address] [place] [address] 03/04/2024 8:45 AM EDT Imaging Maternal Medicine Imaging, [facility]a [facility] [address] [place] [phone] Health Maintenance Due Date Last Done Comments Hepatitis B Vaccine (1 of 3 - 19+ 3-dose series) 2004 HPV/Co-Test 2015 Diabetes Screening 10/20/2016 10/20/2013 Depression Screening 01/16/2020 01/15/2019 COVID-19 Vaccine ( season) 2023 Cervical Cancer Screening 01/17/2024 Pap Smear 01/17/2024 01/16/2021, 01/28, 05/31/2014, Additional history exists Influenza Vaccine (FLU shot) (#1) 2024 04/06/2022, 03/18/2020, 04/30/2018 DTaP,Tdap,and Td Vaccines (4 - Td or Tdap) 02/10/2034 [...]
--- OUTSIDE RECORDS SUMMARY | 2024-04-30 07:53 | External Medical Summary | Summary of Care ---
Author Name Unknown Organization [facility] Address [address] [place] [address] Phone [phone] Care Team Providers Care Visual Lead Name Role Phone Unavailable Primary Care Provider Unavailabl e Reason for Visit * Reason Comments Blood Management Program Encounter Details Date Type Department Care Team (Late st Contact Info) Description 02/12/2024 Documentation Patient Blood Management, [place] [address] [place] [address] Ventura Redd RN Allergies Active Allergy Reactions Criticality Noted Date [...] insurance coverage and cost [place] [address]). Patient aware not all insurances cover this [...] Overview: [facility] Last Assessment & Plan: We reviewed slightly [...] knee 12/30/2011 09/22/2018 Acne 04/27/2018 Overview: Rebecca Deirdre documented as of this encounter (statuses as [...] money to get more. Never true 12/11/2023 [place] Depression Scale Answer Date Recorded [place] Depression Scale Total 10 10/27/2023 The thought [...] as of this encounter Progress Notes * Ventura Redd RN - 02/12/2024 8:21 AM EDT REFERRAL - Patient Blood Management Name: Lorie Godoy REQUESTING SERVICE: [facility] REASON FOR REFERRAL: new evaluation outpatient, anemia in [place]: 04/30/24 Anemia Evaluation: Latest Reference Range & Units 02/11/24 09:47 HGB 12.0 - 15.3 g/dL 10.9 (L) HCT 36.0 - 45.2 % 32.3 (L) Iron 33 - 151 ug/dL 60 Iron Binding Capacity 250 - 425 ug/dL 420 Transferrin Saturation Percent 15 - 55 % 14 (L) Ferritin 13 - 150 ng/mL 14 Vitamin B12 232 - 1,245 pg/mL 299 Folic Acid >4.5 ng/mL 8.4 Immature Reticuloctye Fraction 2.5 - 20.6 % 19.0 Reticulocyte Hemoglobin 29.7 - 37.4 pg 32.4 (L): Data is abnormally low Current Patient Medications: Medications that may impair hemostasis: none Medications that may impair iron absorption: pepcid Patient Refused Blood Transfusion? (e[facility]): no Possible Contributing Factors: iron deficiency and vitamin B12 deficiency Treatment Recommendations: B12 1000mcg PO daily IV iron per OB MTM guidelines. 02/11 - Spoke with Lorie, agreeable to IV iron at [facility]. Risks and benefits of IV iron, including risk of adverse drug reaction discussed with patient. Patient voiced understanding. Thank you for allowing Blood Management to participate in the care of this patient. documented in this encounter Plan of Treatment Upcoming Encounters Date Type Department Care Team (Late st Contact Info) Description 02/26/2024 3:15 PM EDT Office Visit Gynecology/Obstetrics Jethro Mendoza [address] [place] [address] Leilani Hair CRNP [address] [place] [address] 03/04/2024 8:45 AM EDT Imaging Maternal Medicine Imaging, Berta Mendoza [address] [place] [address] Health Maintenance Due Date Last Done Comments Hepatitis B Vaccine (1 of 3 - 19+ 3-dose series) 2004 HPV/Co-Test 2015 Diabetes Screening 10/20/2016 10/20/2013 Depression Screening 01/16/2020 01/15/2019 COVID-19 Vaccine (2022- season) 2023 Cervical Cancer Screening 01/17/2024 Pap [...]
--- OUTSIDE RECORDS SUMMARY | 2024-04-30 07:53 | External Medical Summary | Summary of Care ---
Author Name Unknown Organization [facility] [address] [facility] [address] Phone [phone] Care Team Providers Care Master Fisher Name Role Phone Unavailable Primary Care Provider Unavailabl e Reason for Referral * Evaluate & Treat - Unlimited Visits (Within 10 days (routine)) Specialty Diagnoses / Procedures Referred By Raheem belcher Referred To Contact Pediatric Hematology/Oncology Kirti Diaz CRNP [address] [place] [id number] Referral ID Status Reason Start Date Expiration Date V isits Requested Visits Authorized Specialty Services Required Question Answer Referral Priority Within 10 days (routine) Where should this appointment be scheduled? Allan Reason for Visit * Reason Onset Date Comments Test Results 02/11/2024 Encounter Details Date Type Department Care Team (Late st Contact Info) Description 02/11/2024 Telephone Gynecology/Obstetrics [facility] [address] [place] [address] Kirti Diaz CRNP [address] [place] [id number] Test Results Allergies Active Allergy Reactions Criticality Noted Date [...] insurance coverage and cost ([place] [address]). Patient aware not all insurances cover this [...] Overview: [facility]. Last Assessment & Plan: We reviewed [...] money to get more. Never true 12/11/2023 [place] Depression Scale Answer Date Recorded [place] Depression Scale Total 10 10/27/2023 The thought [...] as of this encounter Miscellaneous Notes * Addendum Note - Kirti Diaz CRNP - 02/12/2024 7:58 AM EDT Addended by: KIRTI DIAZ on: 02/12/2024 07:58 AM Modules accepted: Orders * Telephone Encounter - Rowan Morales LPN - 02/11/2024 4:38 PM EDT Pt aware, would like referral placed. * Telephone Encounter - Rowan Morales LPN - 02/11/2024 1:54 PM EDT left message for patient to call office * Telephone Encounter - Kirti Diaz CRNP - 02/11/2024 1:18 PM EDT Normal glucose. +anemia - with hemoglobin <11, recommend iron infusions. Let me know if she is agreeable and I will send a referral for blood mgmt. Thanks! JACOBO Vick documented in this encounter Plan of Treatment Upcoming Encounters Date Type Department Care Team (Late st Contact Info) Description 02/26/2024 3:15 PM EDT Office Visit Gynecology/Obstetrics [place] [address] Leilani Hair CRNP [address] [address] 03/04/2024 8:45 AM EDT [place] [phone] Scheduled Referrals Name Type Priority Associated Diagnoses Orde r Schedule BLOOD MANAGEMENT REFERRAL Referral Within 10 days (routine) Antepartum anemia complicating Ordered: 02/12/2024 Health Maintenance Due Date Last Done Comments Hepatitis B Vaccine (1 of 3 - 19+ 3-dose series) 2004 HPV/Co-Test 2015 Diabetes Screening 10/20/2016 10/20/2013 Depression Screening 01/16/2020 01/15/2019 COVID-19 Vaccine (1 - 2022-24 season) 2023 Cervical Cancer Screening 01/17/2024 Pap [...] as of this encounter Visit Diagnoses Diagnosis Antepartum anemia complicating - Primary Anemia, antepartum documented in this encounter
--- OUTSIDE RECORDS SUMMARY | 2024-04-30 07:53 | External Medical Summary | Summary of Care ---
Author Name Unknown Organization [facility] Address [address] [facility] [place] [address] Phone [phone] Care Team Providers Care Project Intern Name Role Phone Unavailable Primary Care Provider Unavailabl e Reason for Visit * Reason Comments Return Visit Encounter Details Date Type Department Care Team (Late st Contact Info) Description 02/11/2024 8:45 AM EDT Office Visit Gynecology/Obstetri carol Mendoza [address] [place] [address] Rohini Gomez CRNP [address] [place] [address] High-risk in third trimester*; Multigravida of advanced maternal age in third trimester; resulting from in vitro fertilization in third trimester; Anxiety during ; Need for pbtgewemyr-hxehrxx-mzi tussis (Tdap) vaccine Allergies Active Allergy Reactions Criticality Noted Date Comments Fentanyl Nausea/vomiting 09/12/2020 Gentamicin 02/13/2011 Unsure- mother told allergic Shellfish Allergy Edema airway High 09/07/2018 documented as of this encounter (statuses as of 02/11/2024) Medications Medication Sig Dispensed Refills Start Date End Date Status 28-0.8 MG Oral Tablet Take by mouth. Active Famotidine 20 MG Oral Tablet (Pepcid) Take 1 Tablet by mouth in the morning and 1 Tablet before bedtime. Active documented as of this encounter (statuses as of 02/11/2024) Active Problems Problem Noted Date Diagnosed Date High-risk 12/24/2023 Anxiety during 11/05/2023 Overview: Sees [...] insurance coverage and cost ([place] [address]). Patient aware not all insurances cover this [...] with embryo transfer date 08/13/23. [facility]. Last Assessment & Plan: We reviewed slightly [...] as of this encounter (statuses as of 02/11/2024) Resolved Problems Problem Noted Date Diagnosed Date Resolved Date High-risk 11/05/2023 12/24/19 Supervision of normal first , antepartum 04/27/2018 11/30/2018 with history of in fertility, antepartum 04/27/2018 11/30/2018 Overview: IVF Cough 08/09/2013 04/27/2018 General counseling for presc ription of oral contraceptives 03/25/2012 04/27/2018 Internal derangement of knee 12/30/2011 09/22/2018 Acne 04/27/2018 Overview: Rebecca Gilmore documented as of this encounter (statuses as of 02/11/2024) Immunizations Name Administration Dates Next Due Seasonal [...] to get more. Never true 12/11/2023 [place] Depression Scale Answer Date Recorded [place] Depression Scale Total 10 10/27/2023 The thought [...] Sign Reading Time Taken Comments Blood Pressure 104/64 02/11/2024 8:53 AM EDT Pulse - - Temperature - - Respiratory Rate - - Oxygen Saturation - - Inhaled Oxygen Concentration - - Weight - - Height - - Body Mass Index - - documented in this encounter Progress Notes * Rohini Gomez CRNP - 02/11/2024 8:39 AM EDT 28w5d Baby is active. Denies leaking/bleeding or regular ctx. Discussed [facility] and when to call. Completing labs today. Accepts Tdap. Scheduled for growth scan with MFM in a few weeks. Declines breast pump rx, has one. 2 week return JACOBO Vick documented in this encounter Nursing Notes * Kirsten Schuster LPN - 02/11/2024 9:49 AM EDT Patient here for tdap injection. Patient doing well no complaints. Injection given IM as ordered. Patient tolerated well. Patient to follow up as directed. Patient instructed to call if any complications. Patient verbalized understanding of instructions given. Injection site: Left Deltoid Medication Source: Dispensed stock medication * Kirsten Schuster LPN - 02/11/2024 8:53 AM EDT 28w5d Denies vaginal bleeding/rom + movement No new concerns Gtt today Tdap today documented in this encounter Plan of Treatment Upcoming Encounters Date Type Department Care Team (Late st Contact Info) Description 02/26/2024 3:15 PM EDT Office Visit Gynecology/Obstetrics Jethro Mendoza [address] [place] [address] Leilani Hair CRNP [address] [place] [address] 03/04/2024 8:45 AM EDT Imaging Maternal Medicine [place], Berta Mendoza [address] [place] [phone] Health Maintenance Due Date Last Done Comments Hepatitis B Vaccine (1 of 3 - 19+ 3-dose series) 2004 HPV/Co-Test 2015 Diabetes Screening 10/20/2016 10/20/2013 Depression Screening 01/16/2020 01/15/2019 COVID-19 Vaccine ( - 2022- season) 2023 Cervical Cancer Screening 01/17/2024 Pap [...] vitro fertilization in third trimester Anxiety during Need for zfqrywjpue-xxkegap-zmeoyrwlp (Tdap) vaccine Need for prophylactic vaccination with combined sxllkklaia-nbowvfa-zcclzvwlk (DTP) vaccine documented in this encounter
--- OUTSIDE RECORDS SUMMARY | 2024-04-30 07:53 | External Medical Summary | Summary of Care ---
Author Name Unknown Organization [facility] Address [address] [facility] [address] Phone [phone] Care Team Providers Care Client Relations Representative Name Role Phone Unavailable Primary Care Provider Unavailabl e Reason for Visit * Reason Onset Date Comments Test Results 02/11/2024 Encounter Details Date Type Department Care Team (Late st Contact Info) Description 02/11/2024 Telephone Gynecology/Obstetrics [facility] [address] [place] [address] Rohini Gomez CRNP [address] [place] [phone] Test Results Allergies Active Allergy Reactions Criticality [...] insurance coverage and cost [place] [address]). Patient aware not all insurances cover this [...] Overview: [facility]. Last Assessment & Plan: We reviewed [...] money to get more. Never true 12/11/2023 [place] Depression Scale Answer Date Recorded [place] Depression Scale Total 10 10/27/2023 The thought [...] encounter Miscellaneous Notes * Telephone Encounter - Rowan Morales LPN - 02/11/2024 1:54 PM EDT left message for patient to call office * Telephone Encounter - Rohini Gomez CRNP - 02/11/2024 1:18 PM EDT Normal [...] Gynecology/Obstetrics Jethro Mendoza [address] [place] [address] McHLeilani harris CRNP [address] [place] [address] 03/04/2024 8:45 AM EDT Imaging Maternal Medicine Imaging, Berta Mendoza [address] [place] [phone] Health Maintenance Due Date Last Done Comments [...]
--- OUTSIDE RECORDS SUMMARY | 2024-04-30 07:53 | External Medical Summary | Summary of Care ---
Author Name Unknown Organization [facility] Address [address] [place] [address] Phone [phone] Care Team Providers Care Bulk System Operator Name Role Phone Unavailable Primary Care Provider Unavailabl e Reason for Visit * Reason Onset Date Comments Anemia Follow-Up 02/24/2024 * Evaluate & Treat - Unlimited Visits (Within 10 days (routine)) - Authorized Specialty Diagnoses / Procedures Referred By Raheem t Referred To Contact Pharmacist / Pharmacy Diagnoses RAJAT (iron deficiency anemia) Rohini Gomez CRNP [address] [place] [address] Referral ID Status Reason Start Date Expiration Date Visits Requested Visits Authorized [id number] Authorized Specialty Services Required 02/12/2024 08/10/2024 99 99 Encounter Details Date Type Department Care Team (Late st Contact Info) Description 02/24/2024 4:00 PM EDT Pharmacy Pharmacy, [place] [address], [place] [id number] Clinic, Anemia [address] [place] [address] Iron deficiency anemia, unspecified iron deficiency anemia type* Allergies Active Allergy Reactions Criticality Noted Date Comments Fentanyl Nausea/vomiting 09/12/2020 Gentamicin 02/13/2011 Unsure- mother told allergic Shellfish Allergy Edema airway High 09/07/2018 documented as of this encounter (statuses as of 02/24/2024) Medications Medication Sig Dispensed Refills Start Date [...] as of this encounter (statuses as of 02/24/2024) Active Problems Problem Noted Date Diagnosed Date [...] insurance coverage and cost ([place] [address]). Patient aware not all insurances cover this [...] Overview: [facility] Last Assessment & Plan: We reviewed [...] as of this encounter (statuses as of 02/24/2024) Resolved Problems Problem Noted Date Diagnosed Date Resolved Date High-risk 11/05/2023 12/24/19 24 Supervision of normal first , antepartum 04/27/2018 11/30/2018 with history of in fertility, antepartum 04/27/2018 11/30/2018 Overview: IVF Cough 08/09/2013 04/27/2018 General counseling for presc ription of oral contraceptives 03/25/2012 04/27/2018 Internal derangement of knee 12/30/2011 09/22/2018 Acne 04/27/2018 Overview: Rebecca Derm documented as of this encounter (statuses as of 02/24/2024) Immunizations Name Administration Dates Next Due Seasonal [...] money to get more. Never true 12/11/2023 [place] Depression Scale Answer Date Recorded [place] Depression Scale Total 10 10/27/2023 The thought [...] of this encounter Progress Notes * Keely Negro, [facility] - 02/24/2024 2:02 PM EDT Patient Phone Numbers Patient referred by JACOBO Carey for evaluation of anemia by the Anemia Clinic. Called patient to introduce role/clinic and to review labs from 02/10. Hgb: 10.9 g/dL TSAT: 14 % Ferritin: 14 ng/mL B12: 299 pg/mL FA: 8.4 ng/mL GA: 30w4d Estimated Date of Delivery: 04/30/24 Hgb is below target range for the third trimester. Iron studies below target range. B12 level belowtarget range. FA level within target range. Patient reports feeling tired, but not abnormally and otherwise denies signs/symptoms of anemia. Patient is taking B12 1000mcg daily and appears to be tolerating it well. Oral iron replenishment inadequate or contraindicated. Patient qualifies for IV iron repletion. Plan: Iron dextran (INFeD) 1000 mg IV x 1 dose. Orders placed and routed to appropriate parties at [facility]. Patient agreeable to intervention. Pre-meds appropriate due to history of multiple allergies. Follow-up labs to be scheduled ~4-6 weeks after iron repletion completed if appropriate prior to delivery. Anemia Clinic will continue to follow. Thank you for allowing us to participate in the care of thispatient. Thanks, Keely Negro [facility] Clinical Pharmacist [facility] Anemia Clinic (P: [phone]) 02/24/2024 2:02 PM documented in this encounter Plan of Treatment Upcoming Encounters Date Type Department Care Team (Late st Contact Info) Description 02/26/2024 3:15 PM EDT Office Visit Gynecology/Obstetrics Jethro Mendoza [address] [place] [address] Leilani Hair CRNP [address] [place] [address] 03/04/2024 8:45 AM EDT Imaging Maternal Medicine [place]a [place] [address] [phone] 03/04/2024 10:00 AM EDT Pharmacy Pharmacy, [place] [address] [place] [address] Clinic, Anemia [address] [place] [address] Scheduled Referrals Name Type Priority Associated Diagnoses [...]
--- OUTSIDE RECORDS SUMMARY | 2024-04-30 07:53 | External Medical Summary | Summary of Care ---
Author Name Unknown Organization [facility] Address [address] [facility] [place] [address] Phone [phone] Care Team Providers Care Numerical Control Machine Machinist Name Role Phone Unavailable Primary Care Provider Unavailabl e Reason for Visit * Reason Onset Date Comments Medication Management 02/25/2024 InFed Encounter Details Date Type Department Care Team (Late st Contact Info) Description 02/25/2024 Telephone Hematology/Oncology Treatment, [place] [address] [place] [address] Rohini Gomez CRNP [address] [place] [address] Medication Management (InFed) Allergies Active Allergy Reactions Criticality Noted Date [...] insurance coverage and cost [place] [address]). Patient aware not all insurances cover this [...] Overview: [facility]. Last Assessment & Plan: We [...] of knee 12/30/2011 09/22/2018 Acne 04/27/2018 Overview: [place] Derm documented as of this encounter (statuses [...] money to get more. Never true 12/11/2023 [place] Depression Scale Answer Date Recorded [place] Depression Scale Total 10 10/27/2023 The thought [...] encounter Miscellaneous Notes * Telephone Encounter - Leonel Lancaster OSA - 02/26/2024 12:00 PM EDT Patient called back and scheduled * Telephone Encounter - Kathleen Irby OSA - 02/26/2024 11:54 AM EDT Patient returning call. Call was warm transferred to Leonel Lancaster. * Telephone Encounter - Leonel Lancaster OSA - 02/26/2024 8:47 AM EDT Left message * Telephone Encounter - Darlyn Gr RN - 02/26/2024 8:24 AM EDT [place] is signed. Scheduling: please call patient to schedule 3 hour appt "infed" (Rohini Backer). Thanks! * Telephone Encounter - Rohini Rebollar LPN - 02/25/2024 9:28 AM EDT Order received for InFed [place] plan [place] to p [id number] No prior authorization required Awaiting provider signature before scheduling patient documented in this encounter Plan of Treatment Upcoming Encounters Date Type Department Care Team (Late st Contact Info) Description 02/26/2024 3:15 PM EDT Office Visit Gynecology/Obstetrics [facility] [address] [facility] [place] [address] Leilani Hair CRNP [address] [place] [address] 03/04/2024 8:45 AM EDT Imaging Maternal Medicine Imaging, [facility] [address] [facility] [place] [phone] 03/04/2024 10:00 AM EDT Pharmacy Pharmacy, [place] [address] [place] [facility] [place] [address] Clinic, Anemia [address] [place] [facility] [place] [address] 03/04/2024 2:00 PM EDT Hem/Onc Treatment Hematology/Oncology Treatment, [place] [address] [facility] [phone] Natalie, Chair [address] [place], [place] [address] Health Maintenance Due Date Last Done Comments [...]
--- OUTSIDE RECORDS SUMMARY | 2024-04-30 07:53 | External Medical Summary | Summary of Care ---
Author Name Unknown Organization [facility] Address [address] [facility] [address] Phone [phone] Care Team Providers Care Second Baller Name Role Phone Unavailable Primary Care Provider Unavailabl e Reason for Visit * Reason Onset Date Comments Test Results 02/11/2024 Encounter Details Date Type Department Care Team (Late st Contact Info) Description 02/11/2024 Telephone Gynecology/Obstetrics [facility] [address] [place] [address] Rohini Gomez CRNP [address] [place] [address] Test Results Allergies Active Allergy Reactions Criticality [...] insurance coverage and cost ([place] [address]). Patient aware not all insurances cover this [...] Overview: [facility]. Last Assessment & Plan: We reviewed [...] money to get more. Never true 12/11/2023 [place] Depression Scale Answer Date Recorded [place] Depression Scale Total 10 10/27/2023 The thought [...] M[place] [address] [place] [address] Leilani Hair CRNP [address] [place] [address] 03/04/2024 8:45 AM EDT Imaging Maternal Medicine Imaging, Berta Mendoza [address] [place] [phone] Health Maintenance Due Date Last Done Comments Hepatitis B Vaccine (1 of 3 - 19+ 3-dose series) 2004 HPV/Co-Test 2015 Diabetes Screening 10/20/2016 10/20/2013 Depression Screening 01/16/2020 01/15/2019 COVID-19 Vaccine (2022-24 season) 2023 Cervical Cancer Screening 01/17/2024 Pap [...]
--- OUTSIDE RECORDS SUMMARY | 2024-04-30 07:53 | External Medical Summary | Summary of Care ---
Author Name Unknown Organization [facility] Address [address] [place] [facility] [place] [address] Phone [phone] Care Team Providers Care Regulatory Product Manager Name Role Phone Unavailable Primary Care Provider Unavailabl e Reason for Visit * Reason Onset Date Comments Medication Management 02/25/2024 InFed Encounter Details Date Type Department Care Team (Late st Contact Info) Description 02/25/2024 Telephone Hematology/Oncology Treatment, [place] [address] [place] [address] Rohini Gomez CRNP [address] [place] [address] Medication Management (InFed) Allergies Active Allergy Reactions [...] insurance coverage and [place] [address]). Patient aware not all insurances cover this [...] Overview: [facility] Last Assessment & Plan: We reviewed [...] of knee 12/30/2011 09/22/2018 Acne 04/27/2018 Overview: [place] Derm documented as of this encounter (statuses [...] money to get more. Never true 12/11/2023 [place] Depression Scale Answer Date Recorded [place] Depression Scale Total 10 10/27/2023 The thought [...] encounter Miscellaneous Notes * Telephone Encounter - Darlyn Gr RN - 02/26/2024 8:24 AM EDT [place] is signed. Scheduling: please call patient to schedule 3 hour appt "christian" (Rohini Backer). Thanks! * Telephone Encounter - Rohini Rebollar LPN - 02/25/2024 9:28 AM EDT Order received for InFed [place] p [phone] No prior authorization required Awaiting provider signature before scheduling patient documented in this encounter Plan of Treatment Upcoming Encounters Date Type Department Care Team (Fran st Contact Info) Description 02/26/2024 3:15 PM EDT Office Visit Gynecology/Obstetrics Jethro Mendoza [address] [place] [address] Leilani Hair CRNP [address] [place] [address] 03/04/2024 8:45 AM EDT Imaging Maternal Medicine Imaging, Berta Leas [address] [place] [phone] 03/04/2024 10:00 AM EDT Pharmacy Pharmacy, [address] [address] Clinic, [place] [address] [place], [place] [id number] Health Maintenance Due Date Last Done Comments [...]
--- OUTSIDE RECORDS SUMMARY | 2024-04-30 07:53 | External Medical Summary | Summary of Care ---
Author Name Unknown Organization [facility] Address [address] [place] [address] Phone [phone] Care Team Providers Care Gaming Dealer Name Role Phone Unavailable Primary Care Provider Unavailabl e Reason for Visit * Reason Onset Date Comments Medication Management 02/25/2024 InFed Encounter Details Date Type Department Care Team (Late st Contact Info) Description 02/25/2024 Telephone Hematology/Oncology Treatment, [place] [address] [place] [address] Rohini Gomez CRNP [address] [place] [address] Medication Management (InFed) Allergies Active Allergy Reactions [...] insurance coverage and cost ([place] [address]). Patient aware not all insurances cover this [...] Overview: [facility] with embryo [facility]. Last Assessment & Plan: We reviewed [...] of knee 12/30/2011 09/22/2018 Acne 04/27/2018 Overview: [place] [facility] documented as of this encounter (statuses [...] money to get more. Never true 12/11/2023 [place] Depression Scale Answer Date Recorded [place] Depression Scale Total 10 10/27/2023 The thought [...] Gr RN - 02/26/2024 8:24 AM EDT [place] is signed. Scheduling: please call patient to schedule 3 hour appt "infed" (Rohini Backer). Thanks! * Telephone Encounter - Rohini Rebollar LPN - 02/25/2024 9:28 AM EDT Order received for InFed [place] [phone] No prior authorization required Awaiting provider signature before scheduling patient documented in this encounter Plan of Treatment Upcoming Encounters Date Type Department Care Team (Late st Contact Info) Description 02/26/2024 3:15 PM EDT Office Visit Gynecology/Obstetrics Jethro Mendoza [address] [place] [address] Leilani Hair CRNP [address] [place] [address] 03/04/2024 8:45 AM EDT Imaging Maternal Medicine Imaging, Berta Mendoza [address] [place] [phone] 03/04/2024 10:00 AM EDT Pharmacy Pharmacy, [place] [address] [place] [address] Clinic, [facility] [address] [place] [address] Health Maintenance Due Date Last Done Comments [...]
--- OUTSIDE RECORDS SUMMARY | 2024-04-30 07:53 | External Medical Summary | Summary of Care ---
Author Name Unknown Organization [facility] Address [address] [place] [address] Phone [phone] Care Team Providers Care Leadite Heater Name Role Phone Unavailable Primary Care Provider Unavailabl e Encounter Details Date Type Department Care Team (Late st Contact Info) Description 02/26/2024 Orders Only Pharmacy, [place] [address] [place], [place] [id number] [facility] [address] [place] [address] Allergies Active Allergy Reactions Criticality Noted Date [...] insurance coverage and cost ([place] [address]). Patient aware not all insurances cover this [...] with embryo transfer date 08/13/23. [facility]. Last Assessment & Plan: We reviewed [...] money to get more. Never true 12/11/2023 [place] Depression Scale Answer Date Recorded [place] Depression Scale Total 10 10/27/2023 The thought [...] 02/26/2024 3:15 PM EDT Office Visit Gynecology/Obstetrics Uribe[facility]a Leas [address] [place] [address] Leilani Hair CRNP [address] [place] [address] 03/04/2024 8:45 AM EDT Imaging Maternal Medicine [facility] [address] [place] [phone] 03/04/2024 10:00 AM EDT Pharmacy Pharmacy, [place] [address] [facility] [place] [address] Clinic, [place] [address] [place] [address] Health Maintenance Due Date Last Done Comments Hepatitis B Vaccine (1 of 3 - 19+ 3-dose series) 2004 HPV/Co-Test 2015 Diabetes Screening 10/20/2016 10/20/2013 Depression Screening 01/16/2020 01/15/2019 COVID-19 Vaccine ( - 2022-24 season) 2023 Cervical Cancer Screening [...]
--- OUTSIDE RECORDS SUMMARY | 2024-04-30 07:53 | External Medical Summary | Summary of Care ---
Author Name Unknown Organization [facility] Address [address] [facility] [place] [address] Phone [phone] Care Team Providers Care Mortgage Branch Manager Name Role Phone Unavailable Primary Care Provider Unavailabl e Encounter Details Date Type Department Care Team (Late st Contact Info) Description 02/24/2024 Orders Only Gynecology/Obstetrics [facility] [address] [place] [address] Rohini Gomez CRNP [address] [place] [address] Iron deficiency anemia, unspecified iron deficiency anemia [...] insurance coverage and cost ([place] [address]). Patient aware not all insurances cover this [...] Overview: [facility]. Last Assessment & Plan: We [...] of knee 12/30/2011 09/22/2018 Acne 04/27/2018 Overview: [place] [facility] documented as of this encounter (statuses [...] money to get more. Never true 12/11/2023 [place] Depression Scale Answer Date Recorded [place] Depression Scale Total 10 10/27/2023 The thought [...] Description 02/24/2024 4:00 PM EDT Pharmacy Pharmacy, [place] [address] [place] [address] Clinic, [place] [address] [place] [address] Iron deficiency anemia, unspecified iron deficiency anemia type* 02/26/2024 3:15 PM EDT Office Visit Gynecology/Obstetric s Jethro Mendoza [address] [place] [address] Leilani Hair CRNP [address] [place] [address] 03/04/2024 8:45 AM EDT Imaging Maternal Medicine Imaging, [facility] [address] [place] [phone] 03/04/2024 10:00 AM EDT Pharmacy Pharmacy, [place] [address] [place] [address] Clinic, [facility] [address] [place] [address] Health Maintenance Due Date Last Done Comments [...] anemia, unspecified iron deficiency anemia type- Primary Iron deficiency anemia, unspecified iron deficiency anemia type- Primary documented in this encounter
--- OUTSIDE RECORDS SUMMARY | 2024-04-30 07:53 | External Medical Summary | Summary of Care ---
Author Name Unknown Organization [facility] Address [address] [facility] [place] [address] Phone [phone] Care Team Providers Care Resource Forester Name Role Phone Unavailable Primary Care Provider Unavailabl e Reason for Visit * Reason Onset Date Comments Medication Management 02/25/2024 InFed Encounter Details Date Type Department Care Team (Late st Contact Info) Description 02/25/2024 Telephone Hematology/Oncology Treatment, [place] [address] [place] [address] Rohini Gomez CRNP [address] [place] [address] Medication Management (InFed) Allergies Active Allergy Reactions Criticality Noted Date Comments Fentanyl Nausea/vomiting 09/12/2020 Gentamicin 02/13/2011 Unsure- mother told allergic Shellfish Allergy Edema airway High 09/07/2018 documented as of this encounter (statuses as of 02/25/2024) Medications Medication Sig Dispensed Refills Start Date [...] as of this encounter (statuses as of 02/25/2024) Active Problems Problem Noted Date Diagnosed Date [...] insurance coverage and cost [place] [address]). Patient aware not all insurances cover this [...] Overview: [facility]. Last Assessment & Plan: We reviewed [...] as of this encounter (statuses as of 02/25/2024) Resolved Problems Problem Noted Date Diagnosed Date Resolved Date High-risk 11/05/2023 12/24/19 24 Supervision of normal first , antepartum 04/27/2018 11/30/2018 with history of in fertility, antepartum 04/27/2018 11/30/2018 Overview: IVF Cough 08/09/2013 04/27/2018 General counseling for presc ription of oral contraceptives 03/25/2012 04/27/2018 Internal derangement of knee 12/30/2011 09/22/2018 Acne 04/27/2018 Overview: [place] [facility] documented as of this encounter (statuses as of 02/25/2024) Immunizations Name Administration Dates Next Due Seasonal [...] money to get more. Never true 12/11/2023 [place] Depression Scale Answer Date Recorded [place] Depression Scale Total 10 10/27/2023 The thought [...] encounter Miscellaneous Notes * Telephone Encounter - Rohini Rebollar LPN - 02/25/2024 9:28 AM EDT Order received for InFed [place] [phone] No prior authorization required Awaiting provider signature before scheduling patient documented in this encounter Plan of Treatment Upcoming Encounters Date Type Department Care Team (Late st Contact Info) Description 02/26/2024 3:15 PM EDT Office Visit Gynecology/Obstetrics [address] [place] [address] Leilani Hair CRNP [address] [place] [address] 03/04/2024 8:45 AM EDT Imaging Maternal Medicine Imaging, Berta Mendoza [address] [place] [phone] 03/04/2024 10:00 AM EDT Pharmacy Pharmacy, [place] [address] [place] [address] Clinic, [facility] [address] [place] [address] Health Maintenance Due Date Last Done Comments [...]
--- OUTSIDE RECORDS SUMMARY | 2024-04-30 07:53 | External Medical Summary | Summary of Care ---
Author Name Unknown Organization [facility] Address [address] [facility] [place] [address] Phone [phone] Care Team Providers Care Line Rider Name Role Phone Unavailable Primary Care Provider Unavailabl e Reason for Visit * Reason Onset Date Comments Medication Management 02/25/2024 InFed Encounter Details Date Type Department Care Team (Late st Contact Info) Description 02/25/2024 Telephone Hematology/Oncology Treatment, [place] [address] [place] [address] Rohini Gomez CRNP [address] [place] [address] Medication Management (InFed) Allergies Active Allergy Reactions [...] insurance coverage and cost ([place] [address]). Patient aware not all insurances cover this [...] Overview: [facility]. Last Assessment & Plan: We reviewed slightly [...] of knee 12/30/2011 09/22/2018 Acne 04/27/2018 Overview: [place] [facility] documented as of this encounter (statuses [...] money to get more. Never true 12/11/2023 [place] Depression Scale Answer Date Recorded [place] Depression Scale Total 10 10/27/2023 The thought [...] encounter Miscellaneous Notes * Telephone Encounter - Kathleen Irby OSA - 02/26/2024 11:54 AM EDT Patient returning call. Call was warm transferred to Leonel Lancaster. * Telephone Encounter - Leonel Lancaster OSA - 02/26/2024 8:47 AM EDT Left message * Telephone Encounter - Darlyn Gr RN - 02/26/2024 8:24 AM EDT [place] is signed. Scheduling: please call patient to schedule 3 hour appt "infed" (Rohini Backer). Thanks! * Telephone Encounter - Rohini Rebollar LPN - 02/25/2024 9:28 AM EDT Order received for InFed [place] [phone] No prior authorization required Awaiting provider signature before scheduling patient documented in this encounter Plan of Treatment Upcoming Encounters Date Type Department Care Team (Late st Contact Info) Description 02/26/2024 3:15 PM EDT Office Visit Gynecology/Obstetrics [facility] [address] [place] [address] Leilani Hair CRNP [address] [place] [address] 03/04/2024 8:45 AM EDT Imaging Maternal Medicine Imaging, [facility] [place] [phone] 03/04/2024 10:00 AM EDT Pharmacy Pharmacy, [place] [address] [place] [address] Clinic, [place] [address] [place] [address] Health Maintenance Due Date Last Done Comments [...]
--- OUTSIDE RECORDS SUMMARY | 2024-04-30 07:54 | External Medical Summary | Summary of Care ---
Author Name Unknown Organization [facility] Address [address] [facility] [place] [address] Phone [phone] Care Team Providers Care Store Worker Name Role Phone Unavailable Primary Care Provider Unavailabl e Reason for Visit * Reason Comments Return Visit Encounter Details Date Type Department Care Team (Late st Contact Info) Description 12/24/2023 8:45 AM EDT Office Visit Gynecology/Obstetri carol Mendoza [address] [place] [address] Rohini Gomez CRNP [address] [place] [address] High-risk in second trimester*; Multigravida of advanced maternal age in second trimester; resulting from in vitro fertilization in second trimester; Anxiety during Allergies Active Allergy Reactions Criticality Noted Date Comments Fentanyl Nausea/vomiting 09/12/2020 Gentamicin 02/13/2011 Unsure- mother told allergic Shellfish Allergy Edema airway High 09/07/2018 documented as of this encounter (statuses as of 12/24/2023) Medications Medication Sig Dispensed Refills Start Date End Date Status 28-0.8 MG Oral Tablet Take by mouth. Active documented as of this encounter (statuses as of 12/24/2023) Active Problems Problem Noted Date Diagnosed Date [...] insurance coverage and cost ([place] [address]). Patient aware not all insurances cover this [...] Overview: [facility] Last Assessment & Plan: We reviewed [...] as of this encounter (statuses as of 12/24/2023) Resolved Problems Problem Noted Date Diagnosed Date Resolved Date High-risk 11/05/2023 12/24/19 24 Supervision of normal first , antepartum 04/27/2018 11/30/2018 with history of in fertility, antepartum 04/27/2018 11/30/2018 Overview: IVF Cough 08/09/2013 04/27/2018 General counseling for presc ription of oral contraceptives 03/25/2012 04/27/2018 Internal derangement of knee 12/30/2011 09/22/2018 Acne 04/27/2018 Overview: [facility] Deirdre documented as of this encounter (statuses as of 12/24/2023) Immunizations Name Administration Dates Next Due Seasonal Influenza, PF, 6 M & above, IM , (FluLaval or Fluzone) 04/06/2022,03/18/2020 TDAP (age 10 and older)(Boostrix) 09/22/2018 TDAP, Age 7 and older, IM (Adacel) [...] money to get more. Never true 12/11/2023 [place] Depression Scale Answer Date Recorded [place] Depression Scale Total 10 10/27/2023 The thought [...] file Not on file Not on file Travel History Travel Start Travel End [facility] 12/13/2023 12/17/2023 [place] 12/11/2023 12/13/2023 documented as of this encounter Last Filed Vital Signs Vital Sign Reading Time Taken Comments Blood Pressure 104/60 12/24/2023 8:37 AM EDT Pulse - - Temperature - - Respiratory Rate - - Oxygen Saturation - - Inhaled Oxygen Concentration - - Weight - - Height - - Body Mass Index - - documented in this encounter Progress Notes * Rohini Gomez CRNP - 12/24/2023 8:41 AM EDT 21w5d + movement. No cramping, bleeding. Declines MSAFP. Anatomy scan completed with [facility]. MOSES paperwork returned to pt. 4 week return JACOBO Vick documented in this encounter Nursing Notes * Kirsten Schuster LPN - 12/24/2023 8:37 AM EDT 21w5d Denies vaginal bleeding/rom + movement Noticing some heartburn documented in this encounter Plan of Treatment Upcoming Encounters Date Type Department Care Team (Late st Contact Info) Description 01/21/2024 8:30 AM EDT Office Visit Gynecology/Obstetrics Jethro Mendoza [address] [place] [address] Rohini Gomez CRNP [address] [place] [address] 03/04/2024 8:45 AM EDT Imaging Maternal Medicine Imaging, [place]a [place] [phone] 03/10/2024 2:00 PM EDT Office Visit Gynecology/Obstetrics Jethro [address] [place] [address] Rohini Gomez CRNP [address] [place] [address] Health Maintenance Due Date Last Done Comments Hepatitis B (1 of 3 - 19+ 3-dose series) 2004 HPV/Co-Test 2015 Diabetes Screening 10/20/2016 10/20/2013 Depression Screening 01/16/2020 01/15/2019 COVID-19 Vaccine ( season) 2023 Cervical Cancer Screening 01/17/2024 Pap Smear 01/17/2024 01/16/2021, 01/28, 05/31/2014, Additional history exists Influenza Vaccine (FLU shot) (Season Ended) 2024 04/06/2022, 03/18/2020, 04/30/2018 DTaP,Tdap,and Td Vaccines (3 - Td or Tdap) 09/22/2028 09/22/2018, 08/29/2007 Pneumococcal Vaccine: Pediatrics (0 to 5 Years) and At-Risk Patients (6 to 64 Years) Aged Out 07/02/2016 No longer eligible based on patient's age to complete this topic GARDASIL-HPV IMMUNIZATION SERIES Aged Out No longer eligible based on patient's age to complete this topic MENINGOCOCCAL (MENACTRA/MENVEO) Aged Out No longer eligible based on patient's age to complete this topic documented as of this encounter Medical Devices Not on filedocumented as of this encounter Visit Diagnoses Diagnosis High-risk in second trimester- Primary Multigravida of advanced maternal age in second trimester resulting from in vitro fertilization in second trimester Anxiety during documented in this encounter
--- OUTSIDE RECORDS SUMMARY | 2024-04-30 07:54 | External Medical Summary | Summary of Care ---
Author Name Unknown Organization [facility] Address [address] [facility] [address] Phone [phone] Care Team Providers Care Electronic Prepress Technician Name Role Phone Unavailable Primary Care Provider Unavailabl e Reason for Visit * Reason Comments Return Visit Encounter Details Date Type Department Care Team (Latest Contact Info) Description 11/27/2023 2:15 PM EDT Office Visit Gynecology/Obstetric s Jethro Mendoza [address] [place] [address] Leilani Hair CRNP [address] [place] [phone] Multigravida of advanced maternal age in second trimester*; resulting from in vitro fertilization in second trimester; Supervision of high-risk , second trimester; Anxiety during in second trimester, antepartum Allergies Active Allergy Reactions Criticality Noted Date Comments Fentanyl Nausea/vomiting 09/12/2020 Gentamicin 02/13/2011 Unsure- mother told allergic Shellfish Allergy Edema airway High 09/07/2018 documented as of this encounter (statuses as of 11/27/2023) Medications Medication Sig Dispensed Refills Start Date End Date Status 28-0.8 MG Oral Tablet Take by mouth. Active documented as of this encounter (statuses as of 11/27/2023) Active Problems Problem Noted Date Diagnosed Date Supervision of high-risk , second trime ster 11/05/2023 Anxiety during in second trimester, an tepartum 11/05/2023 Overview: Sees a therapist regularly; states [...] insurance coverage and cost [place] [address]). Patient aware not all insurances cover this [...] Overview: [facility] Last Assessment & Plan: CONSIDERATIONS: Assisted reproductive technology (ART) includes in vitro fertilization (IVF), intrauterine insemination (IUI), Gamete intrafallopian transfer (GIFT) and Zygote intrafallopian transfer (ZIFT). Discussed with patient that pregnancies after ART are associated with increased risk for spontaneous , ectopic (higher with ZIFT for history of tubal factor infertility), multiple gestation and low weight. Discussed with patient that even for villafuerte ART pregnancies, the relative risk of complications such as growth restriction, preeclampsia, prematurity, placental abruption, and mortality are increased, although clearly not independent of infertility itself. Neurodevelopmental outcomes of children conceived by ART appear to be normal. Risk of congenital abnormalities is increased by about 1/3 over the population baseline risk of 2-4%. There is approximately 1% of cardiac defects associated with pregnancies resulting from IVF. This is likely due to the fertilization process. RECOMMENDATIONS: Recommend Maternal Medicine (MFM) level II anatomy scan at 19-20 weeks. Recommend echocardiography by MFM at 22-24 weeks gestation for patients who have had IVF. Recommend MFM growth evaluation if indicated by other existing or maternal conditions. Recommend ultrasound for growth at 28-32 weeks. Recommend weekly NSTs to begin at 36 weeks. Consider delivery at 39 weeks. Vertigo 10/06/2013 Estimated Date of Delivery Comme nts Yes 04/30/2024 Based on Embryo Transfer documented as of this encounter (statuses as of 11/27/2023) Resolved Problems Problem Noted Date Diagnosed Date Resolved Date Supervision of normal first , antepartum 04/27/2018 11/30/2018 with history of in fertility, antepartum 04/27/2018 11/30/2018 Overview: IVF Cough 08/09/2013 04/27/2018 General counseling for presc ription of oral contraceptives 03/25/2012 04/27/2018 Internal derangement of knee 12/30/2011 09/22/2018 Acne 04/27/2018 Overview: [place] [facility] documented as of this encounter (statuses as of 11/27/2023) Immunizations Name Administration Dates Next Due Seasonal [...] the money to buy more. Never true 09/22/19 24 Within the past 12 months, t he food you bought just didn't last and you didn't have money to get more. Never true 09/22/2023 [place] Depression Scale Answer Date Recorded [place] Depression Scale Total 10 10/27/2023 The thought of harming myself has occurred to me . Never 10/27/2023 Estimated Date of Delivery Comme nts Yes [...] Sign Reading Time Taken Comments Blood Pressure 110/62 11/27/2023 2:16 PM EDT Pulse - - Temperature - - Respiratory Rate - - Oxygen Saturation - - Inhaled Oxygen Concentration - - Weight 89.6 kg (197 lb 9.6 oz) 11/27/2023 2:16 P M EDT Height - - Body Mass Index 29.18 10/27/2023 1:49 PM EDT documented in this encounter Progress Notes * Leilani Hair CRNP - 11/27/2023 2:29 PM EDT 17w6d Feeling great. +FM. No bleeding. Has opted out of genetic testing at this point. Anatomy u/s scheduled with MFM in a few weeks. JACOBO Ramsey * Lindsey Ugarte MED ASSIST - 11/27/2023 2:16 PM EDT 17w6d Vaginal bleeding: no ROM: no movement: present Contractions: no Nausea: no Vomiting: no Headaches: yes documented in this encounter Plan of Treatment Upcoming Encounters Date Type Department Care Team (Late st Contact Info) Description 12/09/2023 12:45 PM EDT Office Visit Assistant Professor Of Sociology Obstetrics Maternal Medicine, [address] [address] Colleen Blanco [address] [place] [address] 12/09/2023 12:45 PM EDT Imaging [facility] [place] [address] [address] [facility] [place] [address] 12/24/2023 8:45 AM EDT Office Visit Gynecology/Obstetrics Jethro Mendoza [address] [place] [address] Rohini Gomez CRNP [address] [place] [address] 03/10/2024 2:00 PM EDT Office Visit Gynecology/Obstetrics Jethro Mendoza [address] [place] [address] Rohini Gomez CRNP [address] [place] [address] Health Maintenance Due Date Last Done Comments [...] Diagnosis Multigravida of advanced maternal age in second trimester- Primary resulting from in vitro fertilization in second trimester Supervision of high-risk , second trimester Anxiety during in second trimester, antepartum documented in this encounter
--- OUTSIDE RECORDS SUMMARY | 2024-04-30 07:54 | External Medical Summary ---
Author Name Unknown Address Unknown Organization K01:[facility] [place] [address] [place] [address] Laboratory Report Ordering Provider Test Date Status JOE COTTO 02/11/2024 09:47:42 Final Observation Date Value Abnormality Reference (Units ) Status Folic Acid 02/11/2024 09:47:42 8.4 >4.5 (ng/ mL) Final Performing Location [facility] [place] [address] [place] [address]
--- OUTSIDE RECORDS SUMMARY | 2024-04-30 07:54 | External Medical Summary | Summary of Care ---
Author Name Unknown Organization [facility] Address [address] [facility] [place] [address] Phone [phone] Care Team Providers Care Livestock Commission Agent Name Role Phone Unavailable Primary Care Provider Unavailabl e Reason for Visit * Reason Comments Return Visit Encounter Details Date Type Department Care Team (Late st Contact Info) Description 01/21/2024 8:30 AM EDT Office Visit Gynecology/Obstetri carol Mendoza [address] [place] [address] Rohini Gomez CRNP [address] [place] [address] High-risk in second trimester*; Multigravida of advanced maternal age in second trimester; resulting from in vitro fertilization in second trimester; Anxiety during Allergies Active Allergy Reactions Criticality Noted Date Comments Fentanyl Nausea/vomiting 09/12/2020 Gentamicin 02/13/2011 Unsure- mother told allergic Shellfish Allergy Edema airway High 09/07/2018 documented as of this encounter (statuses as of 01/21/2024) Medications Medication Sig Dispensed Refills Start Date End Date Status 28-0.8 MG Oral Tablet Take by mouth. Active documented as of this encounter (statuses as of 01/21/2024) Active Problems Problem Noted Date Diagnosed Date [...] insurance coverage and cost [place] [address]). Patient aware not all insurances cover this [...] Overview: [facility]. Last Assessment & Plan: We [...] as of this encounter (statuses as of 01/21/2024) Resolved Problems Problem Noted Date Diagnosed Date Resolved Date High-risk 11/05/2023 12/24/19 24 Supervision of normal first , antepartum 04/27/2018 11/30/2018 with history of in fertility, antepartum 04/27/2018 11/30/2018 Overview: IVF Cough 08/09/2013 04/27/2018 General counseling for presc ription of oral contraceptives 03/25/2012 04/27/2018 Internal derangement of knee 12/30/2011 09/22/2018 Acne 04/27/2018 Overview: Rebecca Deirdre documented as of this encounter (statuses as of 01/21/2024) Immunizations Name Administration Dates Next Due Seasonal [...] money to get more. Never true 12/11/2023 [place] Depression Scale Answer Date Recorded [place] Depression Scale Total 10 10/27/2023 The thought [...] Reading Time Taken Comments Blood Pressure 104/60 01/21/2024 8:33 AM EDT Pulse - - Temperature - - Respiratory Rate - - Oxygen Saturation - - Inhaled Oxygen Concentration - - Weight - - Height - - Body Mass Index - - documented in this encounter Progress Notes * Rohini Gomez CRNP - 01/21/2024 8:37 AM EDT 25w5d Doing well. Some HAs, attributes to allergies. Tylenol and caffeine take the edge off. BP normal. Baby is moving. No cramping/bleeding. Seeing MFM. Labs ordered for next visit, discussed these and Tdap. 2 week return. JACOBO Vick documented in this encounter Nursing Notes * Velvet Benoit RN - 01/21/2024 8:34 AM EDT Patient here for BRIANNA 25w5d No concerns 28 wk labs pended Velvet Benoit, RN documented in this encounter Plan of Treatment Upcoming Encounters Date Type Department Care Team (Late st Contact Info) Description 02/11/2024 8:40 AM EDT Laboratory Laboratory, Jethro [facility] [address] [place] [phone] [facility] [address] [place] [address] 02/11/2024 8:45 AM EDT Office Visit Gynecology/Obstetrics Jethro Leas [address] [place] [address] BackRohini funez CRNP [address] [place] [address] 03/04/2024 8:45 AM EDT Imaging Maternal Medicine Imaging, Berta Leas [address] [place] [address] 03/10/2024 2:00 PM EDT Office Visit Gynecology/Obstetrics Jethro Leas [address] [place] [address] BackRohini funez CRNP [address] [place] [address] Scheduled Orders Name Type Priority Associated Diagnoses Orde r Schedule SYPHILIS ANTIBODY SCREEN WITH REFLEX TO RPR Lab Routine High-risk in second trimester Expected: 01/21/2024, Expires: 01/20/2025 50-G GESTATIONAL GLUCOSE, 1 HOUR Lab Routine High-risk in second trimester Expected: 01/21/2024, Expires: 01/20/2025 CBC WITH WBC DIFFERENTIAL AND ANEMIA REFLEX WORKUP Lab Routine High-risk in second trimester Expected: 01/21/2024, Expires: 01/20/2025 Health Maintenance Due Date Last Done Comments [...]
--- OUTSIDE RECORDS SUMMARY | 2024-04-30 07:54 | External Medical Summary | Summary of Care ---
Author Name Unknown Organization [facility] Address [address] [place] [address] Phone [phone] Care Team Providers Care Sheepskin Pickler Name Role Phone Unavailable Primary Care Provider Unavailabl e Reason for Visit * Reason Comments Outpatient Testing Encounter Details Date Type Department Care Team (Late st Contact Info) Description 02/11/2024 8:40 AM EDT Laboratory [facility], [facility] [phone] [facility] [address] [facility] [address] High-risk in second trimester Allergies Active Allergy Reactions Criticality Noted [...] insurance coverage and cost ([place] [address]). Patient aware not all insurances cover this [...] Overview: [facility] Last Assessment & Plan: We [...] money to get more. Never true 12/11/2023 [place] Depression Scale Answer Date Recorded [place] Depression Scale Total 10 10/27/2023 The thought [...] 18 years and over) Not on file 06/13/202 4 Are you (or your family) deyanira eless [...] Gynecology/Obstetrics Jethro Mendoza [address] [place] [address] Leilani Hair CRNP [address] [place] [address] 03/04/2024 8:45 AM EDT Imaging Maternal Medicine Imaging, Berta Mendoza [address] [place] [phone] Pending Results Name Type Priority Associated Diagnoses Date /Time SYPHILIS ANTIBODY SCREEN WITH REFLEX TO RPR Lab Routine High-risk in second trimester 02/11/2024 9:47 AM EDT 50-G GESTATIONAL GLUCOSE, 1 HOUR Lab Routine High-risk in second trimester 02/11/2024 9:47 AM EDT CBC WITH WBC DIFFERENTIAL AND ANEMIA REFLEX WORKUP Lab Routine High-risk in second trimester 02/11/2024 9:47 AM EDT SYPHILIS ANTIBODY SCREEN Lab Routine High-risk in second trimester 02/11/2024 9:47 AM EDT ANEMIA CBC Lab Routine High-risk in second trimester 02/11/2024 9:47 AM EDT DIFFERENTIAL, AUTOMATED Lab Routine High-risk in second trimester 02/11/2024 9:47 AM EDT ANEMIA REFLEX CHEMISTRY HOLD Lab Routine High-risk in second trimester 02/11/2024 9:47 AM EDT Health Maintenance Due Date Last Done [...] encounter Visit Diagnoses Diagnosis High-risk in second trimester documented in this encounter
--- OUTSIDE RECORDS SUMMARY | 2024-04-30 07:54 | External Medical Summary | Summary of Care ---
Author Name Unknown Organization [facility] Address [address] [place] [address] Phone [phone] Care Team Providers Care Washtub Worker Name Role Phone Unavailable Primary Care Provider Unavailabl e Reason for Visit * Reason Comments Ultrasound Encounter Details Date Type Department Care Team (Latest Contact Info) Description 12/09/2023 12:45 PM EDT Office Visit Envelope Maker Obstetrics Maternal Medicine, [place] [address] [place] [address] Colleen Blanco, [address] [place] [address] resulting from in vitro fertilization in second trimester*; Multigravida of advanced maternal age in second trimester; Encounter for anatomic survey; Encounter for screening for congenital cardiac abnormalities in fetus; 19 weeks gestation of ; Other specified related conditions, first trimester Allergies Active Allergy Reactions Criticality Noted Date Comments Fentanyl Nausea/vomiting 09/12/2020 Gentamicin 02/13/2011 Unsure- mother told allergic Shellfish Allergy Edema airway High 09/07/2018 documented as of this encounter (statuses as of 12/09/2023) Medications Medication Sig Dispensed Refills Start Date End Date Status 28-0.8 MG Oral Tablet Take by mouth. Active documented as of this encounter (statuses as of 12/09/2023) Active Problems Problem Noted Date Diagnosed Date [...] insurance coverage and cost ([place] [address]). Patient aware not all insurances cover this [...] Overview: IVF with embryo [facility]. [facility]. Last Assessment & Plan: We reviewed slightly [...] as of this encounter (statuses as of 12/09/2023) Resolved Problems Problem Noted Date Diagnosed Date Resolved Date Supervision of normal first , antepartum 04/27/2018 11/30/2018 with history of in fertility, antepartum 04/27/2018 11/30/2018 Overview: IVF Cough 08/09/2013 04/27/2018 General counseling for presc ription of oral contraceptives 03/25/2012 04/27/2018 Internal derangement of knee 12/30/2011 09/22/2018 Acne 04/27/2018 Overview: Rebecca Derm documented as of this encounter (statuses as of 12/09/2023) Immunizations Name Administration Dates Next Due Seasonal [...] money to get more. Never true 09/22/2023 [place] Depression Scale Answer Date Recorded [place] Depression Scale Total 10 10/27/2023 The thought [...] this encounter Progress Notes * Colleen Blanco, - 12/09/2023 2:27 PM EDT MATERNAL MEDICINE VISIT Lorie Godoy presented today at 19w4d for an ultrasound and follow-up of her high risk . She was seen for the following indications: Problem List Items Addressed This Visit AMA (advanced maternal age) multigravida 35+ resulting from in vitro fertilization - Primary We reviewed slightly increased risk for congenital anomalies, particularly cardiac, in IVF pregnancies as well as FGR. Etiology of these complications is unknown; perhaps related to underlying cause of the infertility vs. embryo cell culture. The risk is higher when ICSI is used. echo may notdetect small VSD (<2mm) but is effective in diagnosis of most cyanotic lesions and many other clinically relevant cardiac defects. Today's exam did not suggest any evidence of cardiac abnormality. Regardless of preimplantation genetic studies, screening for aneuploidy still recommended if results would affect management. NIPT is available throughout if desired. Other Visit Diagnoses Encounter for anatomic survey Encounter for screening for congenital cardiac abnormalities in fetus 19 weeks gestation of We reviewed today's ultrasound findings. 19w4d for anatomical survey with echocardiogram. Normal growth with no ultrasonic evidence of structural or cardiac abnormalities. (For full details, please refer to ultrasound report provided separately). Ms. Gdooy's questions were answered to her satisfaction. She was advised to contact our office or her OB provider for any additional questions regarding her . RECOMMENDATIONS: Recommend follow up ultrasound with MFM in 12 weeks for growth secondary to above indications. Thank you for allowing us to participate in the care of this patient. Please call with any questions. I spent a total of 22 minutes on the date of service in preparation, delivery, and documentation ofthe care provided to Lorie Godoy excluding any time spent in the performance of separately billed services. Colleen Blanco DO 12/09/2023 2:27 PM documented in this encounter Miscellaneous Notes * Assessment & Plan Note - Colleen Blanco DO - 12/09/2023 2:26 PM EDT Associated Problem(s): resulting from in vitro fertilization We reviewed slightly increased risk for congenital anomalies, particularly cardiac, in IVF pregnancies as well as FGR. Etiology of these complications is unknown; perhaps related to underlying cause of the infertility vs. embryo cell culture. The risk is higher when ICSI is used. echo may notdetect small VSD (<2mm) but is effective in diagnosis of most cyanotic lesions and many other clinically relevant cardiac defects. Today's exam did not suggest any evidence of cardiac abnormality. Regardless of preimplantation genetic studies, screening for aneuploidy still recommended if results would affect management. NIPT is available throughout if desired. documented in this encounter Plan of Treatment Upcoming Encounters Date Type Department Care Team (Late st Contact Info) Description 12/24/2023 8:45 AM EDT Office Visit Gynecology/Obstetrics Jethro Mendoza [address] [place] [address] Rohini Gomez CRNP [address] [place] [address] 03/04/2024 8:45 AM EDT Imaging Maternal Medicine Imaging, Berta Mendoza [address] [place] [phone] 03/10/2024 2:00 PM EDT Office Visit Gynecology/Obstetrics Jethro Mendoza [address] [place] [address] Rohini Gomez CRNP [address] [place] [address] Scheduled Orders Name Type Priority Associated Diagnoses Orde r Schedule MFM US PREG FOLLOW UP EACH FETUS Medical Imaging Routine resulting from in vitro fertilization in second trimester Multigravida of advanced maternal age in second trimester Encounter for anatomic survey Encounter for screening for congenital cardiac abnormalities in fetus 19 weeks gestation of Other specified related conditions, first trimester 4 Occurrences starting 12/09/2023 until 04/30/2024 Health Maintenance Due Date Last Done Comments [...] as of this encounter Visit Diagnoses Diagnosis resulting from in vitro fertilization in second trimester- Primary Multigravida of advanced maternal age in second trimester Encounter for anatomic survey Encounter for screening for congenital cardiac abnormalities in fetus 19 weeks gestation of state, incidental Other specified related conditions, first trimester documented in this encounter
--- OUTSIDE RECORDS SUMMARY | 2024-04-30 07:54 | External Medical Summary | Summary of Care ---
Author Name Unknown Organization [facility] Address [address] [facility] [place] [address] Phone [phone] Care Team Providers Care Apprentice Jockey Name Role Phone Unavailable Primary Care Provider Unavailabl e Reason for Visit * Reason Comments Return Visit Encounter Details Date Type Department Care Team (Late st Contact Info) Description 12/24/2023 8:45 AM EDT Office Visit Gynecology/Obstetri carol Mendoza [address] [place] [address] Rohini Gomez CRNP [address] [place] [address] High-risk in second trimester*; Multigravida of advanced [...] insurance coverage and cost [place] [address]). Patient aware not all insurances cover this [...] Overview: [facility]. Last Assessment & Plan: [...] money to get more. Never true 12/11/2023 [place] Depression Scale Answer Date Recorded [place] Depression Scale Total 10 10/27/2023 The thought [...] file Travel History Travel Start Travel End [facility] 12/13/2023 12/17/2023 [place] 12/11/2023 12/13/2023 documented as of this encounter [...] Gynecology/Obstetrics Jethro Mendoza [address] [place] [address] Rohini Gomez CRNP [address] [place] [address] 03/04/2024 8:45 AM EDT Imaging Maternal Medicine Imaging, Berta [place] [phone] 03/10/2024 2:00 PM EDT Office Visit Gynecology/Obstetrics Jethro [address] [place] [address] Rohini Gomez CRNP [address] [place] [address] Health Maintenance Due Date Last Done Comments [...]
--- OUTSIDE RECORDS SUMMARY | 2024-04-30 07:54 | External Medical Summary ---
Author Name Unknown Address Unknown Organization [id number][place] [facility] [place] [address] [place] [address] Laboratory Report Ordering Provider Test Date Status JOE COTTO 02/11/2024 09:47:42 Final Observation Date Value Abnormality Reference (Units ) Status Iron 02/11/2024 09:47:42 60 33-151 (ug/dL) Final Iron-binding capacity 02/11/2024 09:47:42 420 250-425 (ug/dL) Final Transferrin Sat % 02/11/2024 09:47:42 14 Below low normal 15-55 (%) Final Performing Location [place] [facility] [place] [address] [place] [address]
--- OUTSIDE RECORDS SUMMARY | 2024-04-30 07:54 | External Medical Summary ---
Author Name Unknown Address Unknown Organization [id number]:[place] [place] [address] [facility] [address] Laboratory Report Ordering Provider Test Date Status KIRTIBACKER 02/11/2024 09:47:42 Final Observation Date Value Abnormality Reference (Units ) Status WBC, Total 02/11/2024 09:47:42 8.01 4.00-10.8 0 (K/uL) Final RBC 02/11/2024 09:47:42 3.50 3.85-5.15 (M/uL) Final Hemoglobin 02/11/2024 09:47:42 10.9 Below low normal 12 .0-15.3 (g/dL) Final Anemia reflex testing trigge rs on a HGB < 12.0 for Females and HGB < 13.0 for Males in accordance with the WHO Anemia Guidelines
Anemia reflex testing triggers on a HGB < 12.0 for Females and HGB < 13.0 for Males in accordance with the WHO Anemia Guidelines HCT 02/11/2024 09:47:42 32.3 Below low normal 36. 0-45.2 (%) Final MCV 02/11/2024 09:47:42 92.3 81.5-97.5 (fL) Final MCH 02/11/2024 09:47:42 31.1 27.0-34.0 (pg) Final MCHC 02/11/2024 09:47:42 33.7 32.0-36.0 (g/dL) Final RDW 02/11/2024 09:47:42 12.7 11.5-15.5 (%) Final Platelets 02/11/2024 09:47:42 299 140-400 (K /uL) Final MPV 02/11/2024 09:47:42 10.4 6.6-11.1 ( fL) Final Nucleated erythrocytes/100 leukocytes [Ratio] in Blood by Automated count 02/11/2024 09:47:42 0 <=0 (/100 WBCs) Final Performing Location [place] [facility] [place] [facility] [address] [facility] [address]
--- OUTSIDE RECORDS SUMMARY | 2024-04-30 07:54 | External Medical Summary ---
Author Name Unknown Address Unknown Organization [id number]:[facility] [facility] [place] [address] [place] [address] Laboratory Report Ordering Provider Test Date Status JOE COTTO 02/11/2024 09:47:42 Final Observation Date Value Abnormality Reference (Units ) Status Vitamin B12 02/11/2024 09:47:42 751 560-1473 (pg/mL) Final Performing Location LAB[facility] [place] [address] [place] [address]
--- OUTSIDE RECORDS SUMMARY | 2024-04-30 07:54 | External Medical Summary ---
Author Name Unknown Address Unknown Organization [id number]:[place] [facility] [place] [address] [place] [address] Laboratory Report Ordering Provider Test Date Status JOE COTTO 02/11/2024 09:47:42 Final Observation Date Value Abnormality Reference (Units ) Status Retic, % (auto) 02/11/2024 09:47:42 1.55 0.80-1.90 (%) Final Reticulocytes, Absolute 02/11/2024 09:47:42 54.6 31.3-100.1 (K/uL) Final Reticulocyte fraction, immature 02/11/2024 09:47:42 19.0 2.5-20.6 (%) Final Reticulocyte HGB 02/11/2024 09:47:42 32.4 29.7-37.4 (pg) Final Performing Location [facility] [facility] [place] [address] [place] [address]
--- OUTSIDE RECORDS SUMMARY | 2024-04-30 07:54 | External Medical Summary ---
Author Name Unknown Address Unknown Organization [id number]:[facility] [place] [address] [place] [address] Laboratory Report Ordering Provider Test Date Status JOE COTTO 02/11/2024 09:47:42 Final Observation Date Value Abnormality Reference (Units ) Status Treponema pallidum Ab [Presence] in Serum by Immunoassay 02/11/2024 09:47:42 Nonreactive Nonreactive Final No serologic evidence of syp hilis. No additional testing clinicially indicated at this time. Consider repeat testing in 2-4 weeks if acute or primary syphilis is suspected. Performing Location LAB[facility]ORY [facility] [place] - [address] [place] [address]
--- OUTSIDE RECORDS SUMMARY | 2024-04-30 07:54 | External Medical Summary ---
Author Name Unknown Address Unknown Organization [id number]:[facility] [facility] [place] [address] [place] [address] Laboratory Report Ordering Provider Test Date Status VIRGILIO COTTOJULIAN 02/11/2024 09:47:42 Final Observation Date Value Abnormality Reference (Units ) Status TSH 02/11/2024 09:47:42 0.82 0.27-4.20 (uIU/mL) Final Performing Location LABORATORY C - [address] [place] [address]
--- OUTSIDE RECORDS SUMMARY | 2024-04-30 07:54 | External Medical Summary | Summary of Care ---
Author Name Unknown Organization [facility] Address [address] [facility] [place] [address] Phone [phone] Care Team Providers Care Blown Film Extrusion Operator Name Role Phone Unavailable Primary Care Provider Unavailabl e Encounter Details Date Type Department Care Team (Late st Contact Info) Description 10/22/2023 Telephone Gynecology/Obstetrics [facility] [address] [place] [address] Mary Schumacher MD [address] [place] [address] Allergies Active Allergy Reactions Criticality Noted Date [...] insurance coverage and cost [place] [address]). Patient aware not all insurances cover this [...] Overview: [facility]. Last Assessment & Plan: We [...] Tobacco: Never Alcohol Use Standard Drinks/Week Comments No 0 (1 standard drink = 0.6 oz [...] money to get more. Never true 12/11/2023 [place] Depression Scale Answer Date Recorded [place] Depression Scale Total 10 10/27/2023 The thought [...] encounter Miscellaneous Notes * Telephone Encounter - Leilani Hair CRNP - 10/22/2023 12:15 PM EDT No, does not need another ultrasound. * Telephone Encounter - Kelly Estrada RN - 10/22/2023 11:42 AM EDT Pt is scheduled for NOB but has had 2 through [facility] on on 09/09 at 6w5d and one on 09/25 at 9 weeks. Does she need the one for next week with us? We are to respond back to her via MyG. documented in this encounter Plan of Treatment Upcoming Encounters Date Type Department Care Team (Late st Contact Info) Description 02/11/2024 8:40 AM EDT Laboratory [facility], [facility] [address] [place] [phone] MendozaTatiana patterson [address] [place] [address] 02/11/2024 8:45 AM EDT Office Visit Gynecology/Obstetrics Jethro Mendoza [address] [place] [address] Rohini Gomez CRNP [address] [place] [address] 03/04/2024 8:45 AM EDT Imaging Maternal Medicine Imaging, Berta [address] [place] [phone] 03/10/2024 2:00 PM EDT Office Visit Gynecology/Obstetrics Jethro [address] [place] [address] Rohini Gomez CRNP [address] [place] [address] Health Maintenance Due Date Last Done Comments [...]
--- OUTSIDE RECORDS SUMMARY | 2024-04-30 07:54 | External Medical Summary ---
Author Name Unknown Address Unknown Organization K01:LABORATORY [facility] - [address] [place] [address] Laboratory Report Ordering Provider Test Date Status JOE COTTO 02/11/2024 09:47:42 Final Observation Date Value Abnormality Reference (Units ) Status Ferritin 02/11/2024 09:47:42 14 13-150 (ng /mL) Final Performing Location LABORATORY [facility] - [address] [place] [address]
--- OUTSIDE RECORDS SUMMARY | 2024-04-30 07:54 | External Medical Summary ---
Author Name Unknown Address Unknown Organization K01:[facility] [place] - [facility] [address] [place] [address] Laboratory Report Ordering Provider Test Date Status KIRTIJOE 02/11/2024 09:47:42 Final Observation Date Value Abnormality Reference (Units ) Status Creatinine 02/11/2024 09:47:42 0.6 0.5-1.0 (mg/dL) Final Glomerular filtration rate/1.73 sq M.predicted [Volume Rate/Area] in Serum, Plasma or Blood by Creatinine-based formula (CKD-EPI) 02/11/2024 09:47:42 >90 >=60 (mL/min) Final eGFR is calculated based on the CKD-EPI 2020 equation. Performing Location LAB[facility]ORY [facility] [place] [address] [place] [address]
--- OUTSIDE RECORDS SUMMARY | 2024-04-30 07:54 | External Medical Summary ---
Author Name Unknown Address Unknown Organization [id number]:LABORATORY [facility] - [address] [place] [address] Laboratory Report Ordering Provider Test Date Status KIRTI,JOE 02/11/2024 09:47:42 Final Observation Date Value Abnormality Reference (Units ) Status Glucose [Moles/volume] in Serum or Plasma --1 hour post 50 g glucose PO 02/11/2024 09:47:42 126 70-129 (mg/dL) Final Performing Location LABORATORY [facility] - [address] [place] [address]
--- OUTSIDE RECORDS SUMMARY | 2024-04-30 07:55 | External Medical Summary | Summary of Care ---
Author Name Unknown Organization [facility] Address [address] [place] [address] Phone [phone] Care Team Providers Care Rn Wound Care Name Role Phone Unavailable Primary Care Provider Unavailabl e Reason for Visit * Reason Comments Consultation Supervision of High Risk * Evaluate & Treat - Unlimited Visits (Within 10 days (routine)) - Pending Review Specialty Diagnoses / Procedures Referred By Raheem belcher Referred To Contact Obstetrics/Gynecology / Maternal Medicine Diagnoses Multigravida of advanced maternal age in first trimester Suprvsn of preg rslt from assisted reprodctv tech, unsp tri Leilani Hair CRNP [address] [place] [address] Referral ID Status Reason Start Date Expiration Date Visits Requested Visits Authorized [id number] Pending Review Specialty Services Required 10/27/[phone] Encounter Details Date Type Department Care Team (Latest Contact Info) Description 11/05/2023 7:30 AM EDT Telemedicine Magazine Worker Obstetric MFM W [facility] [address] [place] [address] Nichelle Antonio CRNP [address], [place] [id number] resulting from in vitro fertilization in second trimester*; Supervision of high-risk , second trimester; Multigravida of advanced maternal age in second trimester; Anxiety during in second trimester, antepartum Allergies Active Allergy Reactions Criticality Noted Date Comments Fentanyl Nausea/vomiting 09/12/2020 Gentamicin 02/13/2011 Unsure- mother told allergic Shellfish Allergy Edema airway High 09/07/2018 documented as of this encounter (statuses as of 11/05/2023) Medications Medication Sig Dispensed Refills Start Date End Date Status 28-0.8 MG Oral Tablet Take by mouth. 0 Active documented as of this encounter (statuses as of 11/05/2023) Active Problems Problem Noted Date Diagnosed Date [...] insurance coverage and cost [place] [address]). Patient aware not all insurances cover this [...] Overview: [facility] Last Assessment & Plan: CONSIDERATIONS: Assisted [...] as of this encounter (statuses as of 11/05/2023) Resolved Problems Problem Noted Date Diagnosed Date Resolved Date Supervision of normal first , antepartum 04/27/2018 11/30/2018 with history of in fertility, antepartum 04/27/2018 11/30/2018 Overview: IVF Cough 08/09/2013 04/27/2018 General counseling for presc ription of oral contraceptives 03/25/2012 04/27/2018 Internal derangement of knee 12/30/2011 09/22/2018 Acne 04/27/2018 Overview: [facility] documented as of this encounter (statuses as of 11/05/2023) Immunizations Name Administration Dates Next Due Seasonal Influenza, PF, 6 M & above, IM , (FluLaval or Fluzone) 04/06/2022,03/18/2020 TDAP (age 10 and older)(Boostrix) 09/22/2018 TDAP (age 11 and older)(Adacel) 08/29/2007 documented as of this encounter Social [...] money to get more. Never true 09/22/2023 [place] Depression Scale Answer Date Recorded [place] Depression Scale Total 10 10/27/2023 The thought [...] as of this encounter Progress Notes * Nichelle Antonio CRNP - 11/05/2023 8:11 AM EDT MATERNAL MEDICINE CONSULT Lorie Godoy 11/05/23 REFERRING PROVIDER: JACOBO Ramsey Patient location: HOME. I was not in a hospital or clinic location. After connecting through [employer], patient was verified with two unique identifiers. 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 Methods to assure confidentiality were taken. Patient acknowledged consent and understanding of privacy and security of the Telemedicine visit. The patient agreed to participate. Lorie Godoy is a 38 year old with intrauterine at 14w5d (Estimated Date of Delivery: 04/30/24 by embryo transfer on 08/13/23 ) who presents today for an MFM consult due to in vitro fertilization (IVF) , advanced paternal age, and anxiety. Ms. Godoy previously saw MFM in this for limited anatomy ultrasound on 11/02; please see progress note and ultrasound report from that visit for additional documentation and recommendations. HPI/CURRENT : pre- BMI=overweight (81.6 kg (180 lb); 5' 9"); FOB #1; complicated by above. Genetic testing: Undecided OB Berta Mendoza Problems (from 10/22/23 to present) Problem Noted Resolved Supervision of high-risk , second trimester Anxiety during in second trimester, antepartum Overview Signed 11/05/2023 8:10 AM by Nichelle Antonio CRNP Sees a therapist regularly; states that she is doing very well. Denies current depression symptoms as well as suicidal/homicidal ideation. AMA (advanced maternal age) multigravida 35+ Overview Addendum 11/05/2023 8:09 AM by Nichelle Antonio CRNP Ms. Godoy will be 38 years-old by OLAMIDE (04/30/24). Undecided re: genetic screening. Embryos were frozen at age 32. resulting from in vitro fertilization Overview Signed 11/05/2023 8:11 AM by Nichelle Antonio CRNP IVF with embryo transfer date 08/13/23. [facility]. I have reviewed this patient's previous OB ultrasound reports, pertinent labwork and testing provided by her referring OB provider. Current Outpatient Medications Medication Sig Dispense Refill 28-0.8 MG Oral Tablet Take by mouth. No current facility-administered medications for this visit. Review of patient's allergies indicates: Allergen Reactions Shellfish Allergy Edema airway Fentanyl Nausea/vomiting Gentamicin Unsure- mother told allergic OB History Para Term AB Living 2 1 1 0 0 1 SAB IAB Ectopic Multiple Live Births 0 0 0 0 1 # Outcome Date GA Lbr Toñito/2nd Weight Sex Delivery Anes PTL Lv 2 Current 1 Term 11/30/18 39w5d 3.708 kg (8 lb 2.8 oz) M Vag-Spont EPI N ANN MARIE Comments: FOB #1: Denies or delivery complications. +PPA Obstetric Comments 2023: FOB #1 Victorino Godoy 38 YO. Healthy. No children from outside of this relationship. Past Medical History: Diagnosis Date Acne Stella Derm Anxiety Regular counseling Asthma sports-induced; needs inhaler with URIs. no chronic symptoms. anxiety Septic arthritis (HCC) of knee age 5 Past Surgical History: Procedure Laterality Date INFORMATION 06/30/1990 knee surgery for staph infection [place] EMBRYO TRANSFER INTRAUTERINE 02/2018 Family History Problem Relation Age of Onset Gastro-intestinal disorder Mother diverticulitis Other (Other) Mother ankylosing spondylitis (rheumatology) Hyperlipidemia Father Arrhythmia Father ? afib No Known Problems Sister No Known Problems Sister No Known Problems Son Social History Tobacco Use Smoking status: Never Smokeless tobacco: Never Vaping Use Vaping Use: Never used Substance Use Topics Alcohol use: Not Currently Comment: socially Drug use: No REVIEW OF SYSTEMS: headaches: no nausea/vomiting: reports occas n/v, improved reports movement: yes, + flutters abdominal pain/tenderness/cramping/contractions: no vaginal bleeding: no vaginal leaking of fluid: no all other systems negative PHYSICAL EXAM: LMP 06/30/2023 General: Well appearing Psych: Alert to time, place, and person and Pleasant DISCUSSION/RECOMMENDATIONS: Problem List Items Addressed This Visit OB Berta Mendoza AMA (advanced maternal age) multigravida 35+ CONSIDERATIONS: We reviewed the most pertinent aspects [...] targets the following conditions: Trisomy 21 (Down syndrome),trisomy 18, trisomy 13, and sex chromosome abnormalities [...] insurance coverage and cost ([place] [address]). Patient aware not all insurances cover this [...] weeks gestation. resulting from in vitro fertilization - Primary CONSIDERATIONS: Assisted reproductive technology (ART) includes in vitro fertilization (IVF), intrauterine insemination (IUI), Gamete intrafallopian transfer (GIFT) and Zygote intrafallopian transfer (ZIFT). Discussed with patient that pregnancies after ART are associated with increased risk for spontaneous , ectopic (higher with ZIFT for history of tubal factor infertility), multiple gestationpreterm and low weight. Discussed with patient that even for villafuerte ART pregnancies, the relative risk of complications such as growth restriction, preeclampsia, prematurity, placental abruption, and mortality are increased, although clearly not independent of infertility itself. Neurodevelopmental outcomes of children conceived by ART appear to be normal. Risk of congenital abnormalities isincreased by about 1/3 over the population baseline [...] 36 weeks. Consider delivery at 39 weeks. Supervision of high-risk , second trimester Anxiety during in second trimester, antepartum ANXIETY AND DEPRESSION CONSIDERATIONS: Untreated maternal anxiety and depression may be associated with an increased risk of multiple poorobstetrical outcomes including miscarriages, low weight, and delivery. Women with a history of anxiety or depression are at risk for recurrence both during and/or the period. Studies of first-trimester SSRI exposure do not demonstrate consistent data to support an increasedrisk for structural malformations. Anti-anxiety or depression medications have been associated with transient effects (withdrawal syndrome). RECOMMENDATIONS: Mental illness can and should be treated during when the benefits of treatment outweigh potential risks. Referral to behavioral health services as clinically indicated. Follow up ultrasound with Maternal Medicine is scheduled on 12/[address] Blanco for anatomy scan secondary to in vitro fertilization (IVF) , advanced paternal age, and anxiety. Patient is aware of upcoming MFM appointment. JACOBO Rios 11/05/2023 8:13 AM documented in this encounter Miscellaneous Notes * Assessment & Plan Note - Nichelle Antonio CRNP - 11/05/2023 8:11 AM EDT Associated Problem(s): resulting from in vitro fertilization CONSIDERATIONS: Assisted reproductive technology (ART) includes in vitro fertilization (IVF), intrauterine insemination (IUI), Gamete intrafallopian transfer (GIFT) and Zygote intrafallopian transfer (ZIFT). Discussed with patient that pregnancies after ART are associated with increased risk for spontaneous , ectopic (higher with ZIFT for history of tubal factor infertility), multiple gestationpreterm and low weight. Discussed with patient that even for villafuerte ART pregnancies, the relative risk of complications such as growth restriction, preeclampsia, prematurity, placental abruption, and mortality are increased, although clearly not independent of infertility itself. Neurodevelopmental outcomes of children conceived by ART appear to be normal. Risk of congenital abnormalities isincreased by about 1/3 over the population baseline [...] 36 weeks. Consider delivery at 39 weeks. * Assessment & Plan Note - Nichelle Antonio CRNP - 11/05/2023 8:10 AM EDT Associated Problem(s): Anxiety during in second trimester, antepartum ANXIETY AND DEPRESSION CONSIDERATIONS: Untreated maternal anxiety and depression may be associated with an increased risk of multiple poorobstetrical outcomes including miscarriages, low weight, and delivery. Women with a history of anxiety or depression are at risk for recurrence both during and/or the period. Studies of first-trimester SSRI exposure do not demonstrate consistent data to support an increasedrisk for structural malformations. Anti-anxiety or depression medications have been associated with transient effects (withdrawal syndrome). RECOMMENDATIONS: Mental illness can and should be treated during when the benefits of treatment outweigh potential risks. Referral to behavioral health services as clinically indicated. * Assessment & Plan Note - Nichelle Antonio CRNP - 11/05/2023 8:09 AM EDT Associated Problem(s): AMA (advanced maternal age) multigravida 35+ CONSIDERATIONS: We reviewed the most pertinent aspects [...] targets the following conditions: Trisomy 21 (Down syndrome),trisomy 18, trisomy 13, and sex chromosome abnormalities [...] insurance coverage and cost ([place] [address]). Patient aware not all insurances cover this [...] MFM anatomy ultrasound at 19-20 weeks gestation. documented in this encounter Plan of Treatment Upcoming Encounters Date Type Department Care Team (Late st Contact Info) Description 11/27/2023 2:15 PM EDT Office Visit Gynecology/Obstetrics [facility] [address] [place] [address] Leilani Hair CRNP [address] [facility] [place] [address] 12/09/2023 12:45 PM EDT Office Visit Magazine Worker Obstetrics Maternal Medicine, [place] [address] [place] [address] Colleen Blanco DO [address] [place] [address] 12/09/2023 12:45 PM EDT Imaging Radiology [facility] [place] [address] [place] [address] 03/10/2024 2:00 PM EDT Office Visit Gynecology/Obstetrics Jethro Mendoza [address] [place] [address] Back[place], JACOBO Epstein [address] [place] [address] Scheduled Referrals Name Type Priority Associated Diagnoses Orde r Schedule MATERNAL MEDICINE REFERRAL OP Referral Within 10 days (routine) Multigravida of advanced maternal age in first trimester Suprvsn of preg rslt from assisted reprodctv tech, unsp tri Ordered: 10/27/2023 Health Maintenance Due Date Last Done Comments [...] in vitro fertilization in second trimester- Primary Supervision of high-risk , second trimester Multigravida of advanced maternal age in second trimester Anxiety during in second trimester, antepartum documented in this encounter
--- OUTSIDE RECORDS SUMMARY | 2024-04-30 07:55 | External Medical Summary | Summary of Care ---
Author Name Unknown Organization [facility] Address [address] [place] [address] Phone [phone] Care Team Providers Care Dietitian Chief Name Role Phone Unavailable Primary Care Provider Unavailabl e Reason for Visit * Reason Comments Ultrasound Encounter Details Date Type Department Care Team (Latest Contact Info) Description 11/03/2023 10:45 AM EDT Office Visit Living Skills Advisor Obstetrics [facility], [place] [address] [place] [address] Ricardo Briceno, DO [address] [place] [address] Multigravida of advanced maternal age in second trimester*; resulting from in vitro fertilization in second trimester; 14 weeks gestation of Allergies Active Allergy Reactions Criticality Noted Date Comments Fentanyl Nausea/vomiting 09/12/2020 Gentamicin 02/13/2011 Unsure- mother told allergic Shellfish Allergy Edema airway High 09/07/2018 documented as of this encounter (statuses as of 11/03/2023) Medications Medication Sig Dispensed Refills Start Date End Date Status 28-0.8 MG Oral Tablet Take by mouth. 0 Active documented as of this encounter (statuses as of 11/03/2023) Active Problems Problem Noted Date Diagnosed Date AMA (advanced maternal age) multigravida 35+ Overview: Embryo frozen at age 32 Last Assessment & Plan: She presents for an early assessment secondary to AMA and IVF. Today's ultrasound notes the following: The biometry is appropriate for gestational age. The visualized early anatomy is unremarkable in appearance. resulting from in vitro fertilization 10/27/2023 Vertigo 10/06/2013 Estimated Date of Delivery Comme nts Yes 04/30/2024 Based on Embryo Transfer documented as of this encounter (statuses as of 11/03/2023) Resolved Problems Problem Noted Date Diagnosed Date Resolved Date Supervision of normal first , antepartum 04/27/2018 11/30/2018 with history of in fertility, antepartum 04/27/2018 11/30/2018 Overview: IVF Cough 08/09/2013 04/27/2018 General counseling for presc ription of oral contraceptives 03/25/2012 04/27/2018 Internal derangement of knee 12/30/2011 09/22/2018 Acne 04/27/2018 Overview: [place] [facility] documented as of this encounter (statuses as of 11/03/2023) Immunizations Name Administration Dates Next Due Seasonal [...] money to get more. Never true 09/22/2023 [place] Depression Scale Answer Date Recorded [place] Depression Scale Total 10 10/27/2023 The thought [...] as of this encounter Progress Notes * Ricardo Briceno DO - 11/03/2023 1:32 PM EDT MATERNAL MEDICINE VISIT Lorie Godoy presented today at 14w3d to [facility] for an ultrasound. She is being seen today by Maternal- Medicine for the following reasons: Problem List Items Addressed This Visit AMA (advanced maternal age) multigravida 35+ - Primary She presents for an early assessment secondary to AMA and IVF. Today's ultrasound notes the following: The biometry is appropriate for gestational age. The visualized early anatomy is unremarkable in appearance. resulting from in vitro fertilization Other Visit Diagnoses 14 weeks gestation of I reviewed the ultrasound images. Lorie Godoy was given the opportunity to meet with me if shehad any questions. Please refer to the ultrasound report for additional details about today's ultrasound examination. RECOMMENDATIONS: Recommend follow up ultrasound with M in 6 weeks for anatomy. An upcoming MFM consultation visit is planned. Thank you for allowing us to participate in the care of this patient. Please call with any questions. Ricardo Briceno DO 11/03/2023 1:32 PM documented in this encounter Miscellaneous Notes * Assessment & Plan Note - Ricardo Briceno DO - 11/03/2023 1:32 PM EDT Associated Problem(s): AMA (advanced maternal age) multigravida 35+ She presents for an early assessment secondary to AMA and IVF. Today's ultrasound notes the following: The biometry is appropriate for gestational age. The visualized early anatomy is unremarkable in appearance. documented in this encounter Plan of Treatment Upcoming Encounters Date Type Department Care Team (Late st Contact Info) Description 11/05/2023 7:30 AM EDT Telemedicine Living Skills Advisor Obstetric MFM [facility], [place] [address] [place] [facility] [place] [address] Nichelle Antonio CRNP [address] [facility] [place] [address] 11/27/2023 2:15 PM EDT Office Visit Gynecology/Obstetrics [facility] [address] [place] [address] Leilani Hair CRNP [address] [place] [address] 12/09/2023 12:45 PM EDT Office Visit Living Skills Advisor Obstetrics Maternal Medicine, [place] [address] [place] [address] Colleen Blanco DO [address] [place] [address] 12/09/2023 12:45 PM EDT Imaging Radiology [facility] [address] [place] [address] 03/10/2024 2:00 PM EDT Office Visit Gynecology/Obstetrics [facility] [address] [facility] [address] Rohini Gomez CRNP [address] [place] [address] Health Maintenance Due Date Last Done Comments [...] - Td or Tdap) 09/22/2028 09/22/2018, 08/29/2007 GARDASIL-HPV IMMUNIZATION SERIES Aged Out No longer eligible based on patient's age to complete this topic MENINGOCOCCAL (MENACTRA/MENVEO) Aged Out No longer eligible based on patient's age to complete this topic Pneumococcal Vaccine: Pediatrics (0 to 5 Years) and At-Risk Patients (6 to 64 Years) Aged Out 07/02/2016 No longer eligible based on patient's age to complete this topic documented as of this encounter Medical Devices Not on filedocumented as of this encounter Visit Diagnoses Diagnosis Multigravida of advanced maternal age in second trimester- Primary resulting from in vitro fertilization in second trimester 14 weeks gestation of state, incidental documented in this encounter
[2024-04-30] MEDS ORDERED: OXYTOCIN 30 UNITS/NSS 30 UNITS/500 ML BAG IV PRN (08:51)
[2024-04-30] MEDS ORDERED: LIDOCAINE 1% LOCAL 20 ML VIAL INFIL PRN (08:51)
--- NOTE | 2024-04-30 08:57 | History & Physical Report ---
Date of Service April 30, 2024 Assessment & Plan (1) In vitro fertilization: (2) Advanced maternal age in multigravida: Plan: 38-year-old -0-0-1 at 40weeks of gestation presenting today for scheduled induction of labor at term, Vital signs stable afebrile, GBS negative, heart rate reassuring, Cervix unfavorable, Plan to admit, labs, cervical ripening with Cervidil, discussed what to expect during cervical ripening and induction process, All questions were answered. Admission and Anticipated Discharge Date Admission Date: April 30, 2024 History of Present Illness Primary Care Provider: JACOBO Medina, YOLIS Patient is a 32-year-old -0-0-1 at 40 weeks gestation who was admitted for induction of labor at term for history of IVF and AMA. Patient denies contractions, leakage of fluid, vaginal bleeding. She reports good movements. Her has been complicated by above, patient opted not to have genetic screening for chromosome abnormalities. History of exercise induced asthma, no asthma attacks, uses albuterol as needed, History of anxiety, goes through counseling, has not been on bed, feels well. GBS negative. Allergies Allergy/AdvReac Type Severity Reaction Status Date / Time shellfish derived Allergy Severe Anaphylaxis Verified 06/21/19 11:15 gentamicin Allergy Intermediate Rash, Fever Verified 06/21/19 11:15 Home Medications Medication Instructions Recorded Confirmed Type vitamins-iron fumarate 27 1 tab PO HS 11/30/18 06/21/19 History mg iron-folic acid 0.8 mg tablet ( Vitamin) ondansetron 4 mg disintegrating 4 - 8 mg (1 - 2 x 4 mg) PO Q8H PRN 06/21/19 Rx tablet nausea and vomiting #14 tabs phenol 0.5 % mucosal aerosol spray 0.5 % mucous membrane UD 06/21/19 06/21/19 History (Chloraseptic) ibuprofen 800 mg tablet 800 mg PO TID PRN pain #20 tabs 09/08/20 Rx hydrocodone-homatropine 5 mg-1.5 5 ml PO Q6H PRN cough #100 mL 07/25/23 Rx mg/5 mL oral syrup (Hydrocodone Compound) Patient History Medical History (Updated 04/30/24 @ 08:56 by Mary Borrero MD) In vitro fertilization IVF with current . 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 History no history of STDs, no history of chlamydia, gonorrhea, herpes Review of Systems as per Subjective / HPI Physical Exam Constitutional: WD/WN, vitals as above Gastrointestinal (Abdomen): normal bowel sounds, soft, nontender, no hepatosplenomegaly Genitourinary: OB Exam Abdomen: + vertex Manual OB Exam: + cervical dilation, + cervical effacement 10% and + station high ( -3) OB Exam Monitor Tracing: + external uterine monitor used and + category I Results & Data Vital Signs (Past 12 Hours) Vital Signs Pulse BP 04/30/24 08:38 87 125/70 (2) Advanced maternal age in multigravida Trimester: third trimester Qualified Code(s): O09.523 - Supervision of elderly multigravida, third trimester
[2024-04-30] MEDS: DINOPROSTONE 10 MG INSERT PV ONE (09:11)
[2024-04-30 09:32] LABS: Hematocrit (blood only) 34.8 % (37.0-47.0); Hemoglobin 11.9 g/dl (12.0-16.0); Mean Corpuscular Hemoglobin 30.8 pg (25.0-34.0); Mean Corpuscular Hgb Conc 34.2 g/dL (32.0-36.0); Mean Corpuscular Volume 90.2 fL (80.0-100.0); Mean Platelet Volume 10.5 fL (9.4-12.4); Platelet Count 241 K/uL (130-400); RDW Coefficient of Variation 13.9 % (11.5-14.5); RDW Standard Deviation 45.6 fL (36.4-46.3); Red Blood Count 3.86 M/uL (4.20-5.40); White Blood Count 7.56 K/ul (4.8-10.8)
[2024-04-30 09:48] LABS: Albumin Globulin Ratio 1.1 (0.9-2); Albumin Level 3.1 gm/dl (3.4-5.0); BUN Creatinine Ratio 14.8 (10-20); Bilirubin,Total 0.5 mg/dl (0.2-1.0); Calcium 8.6 mg/dl (8.6-10.3); Creatinine Clr Calc Pharmacy 167.8 ml/min; Globulin 2.9 gm/dl (2.5-4.0); Potassium 3.8 mmol/L (3.5-5.1)
[2024-04-30] MEDS ORDERED: ACETAMINOPHEN 325 MG TAB PO PRN (15:56)
[2024-04-30] MEDS ORDERED: BUTORPHANOL TARTRATE 2 MG/ML VIAL IV PRN (15:56)
--- NOTE | 2024-04-30 15:58 | Obstetrical Progress Note ---
Date of Service April 30, 2024 Assessment & Plan Admission and Anticipated Discharge Date Admission Date: April 30, 2024 Subjective patient is reevaluated. She feels well, no complaints. She denies painful contractions, leakage of fluid or vaginal bleeding she reports good movements. She feels irregular abdominal tightening but they are not painful. she ate lunch and kept it down. Patient is sitting comfortably and watching TV, Vital signs stable afebrile, heart rate reassuring,Category 1, Koppel mild irregular contractions, patient does not feel all of them continue to monitor closely, will remove Cervidil tonight at 12 hours, All questions were answered. Results & Data Vital Signs (Past 12 Hours) Vital Signs Temp Pulse Resp BP O2 Del Method 04/30/24 15:17 86 133/70 04/30/24 14:22 83 127/62 04/30/24 14:21 16 04/30/24 14:21 36.7 C 16 04/30/24 13:39 18 04/30/24 13:39 18 04/30/24 11:11 37.0 C 88 16 121/73 04/30/24 10:30 16 04/30/24 10:30 16 04/30/24 09:30 18 04/30/24 09:30 18 04/30/24 09:15 88 121/72 04/30/24 08:38 87 125/70 04/30/24 08:27 36.8 C 18 Room Air
[2024-04-30] MEDS: CALCIUM CARBONATE 500 MG CHEWABLE TAB PO PRN (22:37)
[2024-05-01] MEDS: miSOPROStoL 50 MCG TAB PO SCH (00:10)
[2024-05-01] MEDS: CETIRIZINE HCL 10 MG TABLET PO SCH ×2 (08:07→23:20)
[2024-05-01] MEDS ORDERED: Nursing to Pharmacy Communication SCH ×2 (08:15→08:30)
[2024-05-01] MEDS: PRENATAL VITAMIN 1 TAB PO SCH (08:23)
[2024-05-01] MEDS: FLUTICASONE PROPIONATE NA SPR 16 GM BTL NAE SCH ×2 (08:24→23:20)
--- NOTE | 2024-05-01 09:21 | Anesthesiology Consultation ---
Date of Service May 01, 2024 Assessment & Plan Chart Review Chart Review: Acceptable Risk for Surgery, Patient NOT seen in Pre Admission Testing and Acceptable Risk for Labor Epidural Consults Requested none ASA ASA2 Proposed Anesthesia Anesthesia Type: Labor Epidural and CSE History Height/Weight Height: 5 ft 9 in Weight: 88.859 kg Allergies Allergy/AdvReac Type Severity Reaction Status Date / Time shellfish derived Allergy Severe Anaphylaxis Verified 06/21/19 11:15 gentamicin Allergy Intermediate Rash, Fever Verified 06/21/19 11:15 Medications Home Medications Medication Instructions Recorded Confirmed Last Taken vitamins-iron fumarate 27 2 tab PO DAILY 11/30/18 04/30/24 04/30/24 06:30 mg iron-folic acid 0.8 mg tablet ( Vitamin) cetirizine 10 mg 1XD 04/30/24 04/30/24 04/29/24 21:00 famotidine 20 mg tablet (Pepcid) 20 mg PO HS 04/30/24 04/30/24 04/30/24 06:30 fluticasone propionate 50 2 spray intranasal DAILY 04/30/24 04/30/24 04/29/24 21:00 mcg/actuation nasal spray,suspension Active Medications Generic Name Dose Route Start Last Admin Trade Name Freq PRN Reason Stop Dose Admin Calcium Carbonate 500 mg 04/30/24 15:56 04/30/24 22:37 Calcium Carbonate 500 Mg Chewable Tab PO 05/30/24 15:55 500 mg Q6 PRN Administration Indigestion Misoprostol 50 mcg 04/30/24 22:35 05/01/24 06:31 Misoprostol 50 Mcg Tab PO 05/30/24 22:34 50 mcg Q4H JANEE Administration Prenat Multivit/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 Vertigo Exercise / Class Metabolic Activity II 4-5 Yardwork/Stairs/Walk up hill Past Family History Family History Other Ankylosing spondylitis Atrial fibrillation Past Surgical History Surgical History [place] teeth extracted H/O left knee surgery 5 years old - Staph infection Past Anesthesia History No Hx of Anesthesia Complications and No Family Hx of Anesthesia Complications History of PONV No Hx of PONV and No Hx of Motion Sickness Social History Smoking Status: Never smoker Do You Dip or Chew Tobacco: No Hx Alcohol Use: No Hx Substance Use: No substance use type: does not use Physical Exam Vital Signs Last Vital Signs Temp 36.8 C 05/01/24 06:57 Pulse 79 05/01/24 06:58 Resp 14 05/01/24 06:57 BP 109/60 05/01/24 06:58 O2 Del Method Room Air 04/30/24 08:27 Testing Laboratory Results 04/30/24 09:18 04/30/24 09:18 Electrocardiogram Date: 07/25/23 Findings: + ST @ (@ 102)
[2024-05-01] MEDS: LACTATED RINGER'S 1,000 ML IV SCH (17:49)
[2024-05-01] MEDS: OXYTOCIN 30 UNITS/NSS 30 UNITS/500 ML BAG IV PRN (17:53)
[2024-05-01] MEDS: fentANYL 2 MCG/ML BUPIVacaine 0.125%-NSS 100ML BAG ONE (20:05)
[2024-05-01] MEDS: LIDOCAINE 2%/EPINEPHRINE 1:200,000 20 ML PF ONE (20:05)
[2024-05-01] MEDS ORDERED: LIDOCAINE 2% MPF LOCAL 5 ML VIAL EPI PRN (20:16)
[2024-05-01] MEDS ORDERED: BUPIVACAINE 0.25% PF 30 ML VIAL EPI PRN (20:16)
[2024-05-01] MEDS ORDERED: LIDOCAINE 2%/EPINEPHRINE 1:200,000 20 ML PF EPI STA (20:16)
[2024-05-01] MEDS ORDERED: BUPIVACAINE 0.25% PF 30 ML VIAL EPI STA (20:16)
[2024-05-01] MEDS ORDERED: ePHEDrine sulfate 50 MG/ML AMP IV PRN (20:16)
[2024-05-01] MEDS ORDERED: NALOXONE HCL 1 MG in SODIUM CHLORIDE 0.9% 1,000 ML IV PRN (20:16)
[2024-05-01] MEDS ORDERED: NALBUPHINE HCL INJ 10 MG/ML AMP IV PRN (20:16)
[2024-05-01] MEDS ORDERED: diphenhydrAMINE 50 MG/ML VIAL IV PRN (20:16)
[2024-05-01] MEDS ORDERED: fentANYL 2 MCG/ML BUPIVacaine 0.125%-NSS 100ML BAG EPI PRN (20:16)
[2024-05-01] MEDS ORDERED: NALOXONE HCL 0.4 MG/1 ML VIAL/CARP IV PRN (20:16)
[2024-05-01] MEDS ORDERED: fentaNYL citrate PF 100 MCG/2 ML VIAL EPI PRN (20:16)
[2024-05-01] MEDS ORDERED: ROPIVACAINE 0.5% PF 5 MG/ML 20 ML VIAL EPI PRN (20:16)
[2024-05-01] MEDS ORDERED: fentaNYL citrate PF 100 MCG/2 ML VIAL EPI STA (20:16)
[2024-05-01] MEDS ORDERED: SODIUM CHLORIDE 0.9% PF INJ 10 ML VIAL EPI STA (20:16)
[2024-05-01] MEDS ORDERED: SODIUM CHLORIDE 0.9% PF INJ 10 ML VIAL EPI PRN (20:16)
[2024-05-01] MEDS: BUPIVACAINE 0.25% PF 30 ML VIAL ONE (21:03)
[2024-05-01] MEDS: SODIUM CHLORIDE 0.9% PF INJ 10 ML VIAL ONE (21:04)
[2024-05-01] MEDS: ePHEDrine sulfate 50 MG/ML AMP ONE (21:04)
[2024-05-01] MEDS: fentaNYL citrate PF 100 MCG/2 ML VIAL ONE (21:04)
[2024-05-01] MEDS: ONDANSETRON INJ 2 MG/ML 2 ML VIAL IV PRN (22:04)
[2024-05-01] MEDS ORDERED: NURSING L&D Epidural Breakthrough Pain Update ONE (22:11)
[2024-05-01] MEDS: METHYLERGONOVINE MALEATE 0.2 MG/ML AMP IM ONE (23:02)
[2024-05-01] MEDS ORDERED: ACETAMINOPHEN W/CODEINE #3 1 TAB PO PRN (23:20)
[2024-05-01] MEDS ORDERED: oxyCODONE/ACETAMINOPHEN 5mg/325mg TAB PO PRN (23:20)
[2024-05-01] MEDS ORDERED: HYDROCORTISONE ACETATE 25 MG SUPP PR PRN (23:20)
[2024-05-01] MEDS ORDERED: OXYTOCIN 30 UNITS/NSS 30 UNITS/500 ML BAG IV PRN (23:20)
--- NOTE | 2024-05-01 23:27 | Delivery Summary ---
Vaginal Delivery Summary Date of Service May 01, 2024 Vaginal Delivery Summary Patient has been followed in the office for care and delivery. This is an in vitro fertilization . Brought in for induction at 40 weeks and 1 day gestation. Started with a vaginal tape. Then 2 doses of p.o. Cytotec. Then IV Pitocin. When she was about 4 to 5 cm she requested received epidural for pain control. Membranes were ruptured at about 5 cm fluid was clear. She went to full dilatation and then under 30 minutes pushed out a live female infant via direct occiput anterior position over an intact perineum. Infant was suctioned through the mouth and the nose. Body was delivered without difficulty. Cord was allowed to pulse for 1 full minute. Cord was then clamped cut by the father. Cord blood was taken. With IV Pitocin running the placenta was removed intact. Inspection of the perineum revealed to periurethral lacerations which were repaired with a running 3-0 chromic. And there were 2 first-degree lacerations vaginal lacerations 1 at 5:00 and the other 1 at 7:00 and these were both repaired with running 3-0 Vicryl following this badge examination revealed no hematoma formation sponges were removed. Calculated blood loss was 310 mL. Patient Toller procedure well.
[2024-05-02] MEDS: FAMOTIDINE 20 MG TAB PO SCH (00:15)
[2024-05-02] MEDS: DIPHTHER/TETAN/PERTUS Vaccine (Tdap, Adol/Adult) 0.5mL IM ONE (00:16)
--- NOTE | 2024-05-02 00:50 | Anesthesia Procedure Note ---
Date of Service May 02, 2024 Anesthesia Post Epidural Note Vital Signs Vital Signs: Temp Pulse Resp BP Pulse Ox O2 Del Method 36.6 C 93 H 16 136/83 96 Room Air 05/01/24 20:52 05/02/24 00:46 05/02/24 00:16 05/02/24 00:46 05/01/24 23:15 04/30/24 08:27 Pain Intensity Bilateral Lower Abdomen: Pain Intensity: 7 Notes Mental Status: alert / awake / arousable Nausea / Vomiting: adequately controlled Pain: adequately controlled Airway Patency, RR, SpO2: stable & adequate BP & HR: stable & adequate Hydration State: stable & adequate Neuraxial Anesthesia: was administered and sensory block is resolving Anesthetic Complications: no major complications apparent and Pt Satisfied with anesthetic care Epidural: Removed without complications and With tip intact
[2024-05-02] MEDS: IBUPROFEN 600 MG TAB PO PRN (01:58)
[2024-05-02] MEDS: BENZOCAINE 20% SPRY 85 APPLN/85 GM CAN EXT PRN (01:58)
[2024-05-02] MEDS: ACETAMINOPHEN 325 MG TAB PO PRN (02:38)
[2024-05-02 06:57] LABS: Hematocrit (blood only) 33.9 % (37.0-47.0); Hemoglobin 11.5 g/dl (12.0-16.0); Mean Corpuscular Hemoglobin 30.9 pg (25.0-34.0); Mean Corpuscular Hgb Conc 33.9 g/dL (32.0-36.0); Mean Corpuscular Volume 91.1 fL (80.0-100.0); Mean Platelet Volume 10.9 fL (9.4-12.4); Platelet Count 230 K/uL (130-400); RDW Coefficient of Variation 13.7 % (11.5-14.5); RDW Standard Deviation 46.1 fL (36.4-46.3); Red Blood Count 3.72 M/uL (4.20-5.40); White Blood Count 10.72 K/ul (4.8-10.8)
[2024-05-02] MEDS: PRENATAL VITAMIN 1 TAB PO SCH (08:41)
[2024-05-02] MEDS: DOCUSATE SODIUM 100 MG CAP PO SCH (08:41)
--- NOTE | 2024-05-02 09:09 | Obstetrical Progress Note ---
Date of Service May 02, 2024 Assessment & Plan Admission and Anticipated Discharge Date Admission Date: April 30, 2024 OB Progress Note abdomen soft and non tender no calf tenderness ambulating well vaginal bleeding scant hgb 11.5 Results & Data Vital Signs (Past 12 Hours) Vital Signs Temp Pulse Pulse Resp BP BP Pulse Ox 05/02/24 06:58 36.6 C 73 18 111/71 97 05/02/24 03:03 36.8 C 89 18 103/61 95 05/02/24 01:16 EST 16 05/02/24 01:16 EST 93 H 05/02/24 01:16 EST 129/67 05/02/24 01:01 EST 92 H 05/02/24 01:01 EST 125/65 05/02/24 01:39 EDT 36.6 C 92 H 16 112/72 96 05/02/24 00:46 16 05/02/24 00:46 93 H 136/83 05/02/24 00:31 79 133/72 05/02/24 00:16 16 05/02/24 00:16 85 138/70 05/02/24 00:01 18 05/02/24 00:01 93 H 133/79 05/01/24 23:46 18 05/01/24 23:46 77 128/72 05/01/24 23:31 18 05/01/24 23:31 93 H 136/76 05/01/24 23:17 85 121/89 05/01/24 23:16 18 05/01/24 23:15 89 96 05/01/24 23:10 95 H 95 05/01/24 23:05 105 H 95 05/01/24 23:04 94 05/01/24 23:04 100 H 05/01/24 23:04 97 H 120/59 L 05/01/24 23:00 102 H 96 05/01/24 22:57 108 H 93 05/01/24 22:55 109 H 98 05/01/24 22:51 84 93 05/01/24 22:50 78 95 05/01/24 22:45 101 H 98 05/01/24 22:40 77 96 05/01/24 22:35 79 96 05/01/24 22:33 16 05/01/24 22:33 73 16 105/66 05/01/24 22:30 84 96 05/01/24 22:25 82 96 05/01/24 22:24 76 94 05/01/24 22:20 76 95 05/01/24 22:18 72 108/67 05/01/24 22:15 76 98 05/01/24 22:10 75 96 O2 Del Method 05/02/24 06:58 Room Air 05/02/24 03:03 Room Air 05/02/24 01:16 EST 05/02/24 01:16 EST 05/02/24 01:16 EST 05/02/24 01:01 EST 05/02/24 01:01 EST 05/02/24 01:39 EDT Room Air 05/02/24 00:46 05/02/24 00:46 05/02/24 00:31 05/02/24 00:16 05/02/24 00:16 05/02/24 00:01 05/02/24 00:01 05/01/24 23:46 05/01/24 23:46 05/01/24 23:31 05/01/24 23:31 05/01/24 23:17 05/01/24 23:16 05/01/24 23:15 05/01/24 23:10 05/01/24 23:05 05/01/24 23:04 05/01/24 23:04 05/01/24 23:04 05/01/24 23:00 05/01/24 22:57 05/01/24 22:55 05/01/24 22:51 05/01/24 22:50 05/01/24 22:45 05/01/24 22:40 05/01/24 22:35 05/01/24 22:33 05/01/24 22:33 05/01/24 22:30 05/01/24 22:25 05/01/24 22:24 05/01/24 22:20 05/01/24 22:18 05/01/24 22:15 05/01/24 22:10
[2024-05-02 23:54] VITALS: O2SAT 96
[2024-05-03] MEDS ORDERED: bisacodyL 10 MG SUPP PR PRN
[2024-05-03 06:18] LABS: Hematocrit (blood only) 32.3 % (37.0-47.0); Hemoglobin 10.7 g/dl (12.0-16.0)
[2024-05-03] MEDS: bisacodyL 5 MG TABEC PO SCH (07:15)
[2024-05-03 07:29] VITALS: BP 107/67; PULSE 76; RESP 16; TEMP 97.7
--- NOTE | 2024-05-03 09:02 | Obstetrical Progress Note ---
Date of Service May 03, 2024 Assessment & Plan Admission and Anticipated Discharge Date Admission Date: April 30, 2024 Subjective Patient is seen and examined. She feels well, no complaints. Ambulating without dizziness Voiding without difficulty Tolerating regular diet with out N&V Bleeding is minimal No fever/ chills/ CP/ SOB/ N&V/ Leg pain Breast feeding without problems Vital Signs Temp Pulse Resp BP Pulse Ox O2 Del Method 05/03/24 07:20 36.5 C 76 16 107/67 96 Room Air 05/02/24 23:52 36.6 C 75 18 104/66 96 Room Air 05/02/24 19:30 36.5 C 83 16 105/78 96 Room Air 05/02/24 14:55 36.6 C 87 16 105/62 Room Air 05/02/24 12:00 36.4 C L 82 16 106/67 97 Room Air Lab Results 04/30/24 05/02/24 05/03/24 Range/Units 09:18 06:20 05:40 WBC 7.56 10.72 (4.8-10.8) K/ul RBC 3.86 L 3.72 L (4.20-5.40) M/uL Hgb 11.9 L 11.5 L 10.7 L (12.0-16.0) g/dl Hct 34.8 L 33.9 L 32.3 L (37.0-47.0) % MCV 90.2 91.1 (80.0-100.0) fL MCH 30.8 30.9 (25.0-34.0) pg MCHC 34.2 33.9 (32.0-36.0) g/dL RDW Std Deviation 45.6 46.1 (36.4-46.3) fL RDW Coeff of Elisabeth 13.9 13.7 (11.5-14.5) % Plt Count 241 230 (130-400) K/uL MPV 10.5 10.9 (9.4-12.4) fL Sodium 136 (136-145) mmol/L Potassium 3.8 (3.5-5.1) mmol/L Chloride 107 (98-107) mmol/L Carbon Dioxide 22 (21-32) mmol/L Anion Gap 7 (3-11) BUN 8 (6-23) mg/dl Creatinine 0.54 L (0.6-1.2) mg/dl Est Cr Clr Drug Dosing 167.8 ml/min eGFR 120.78 BUN/Creatinine Ratio 14.8 (10-20) Glucose 120 H (70-99(Fasting)) mg/dl Calcium 8.6 (8.6-10.3) mg/dl Total Bilirubin 0.5 (0.2-1.0) mg/dl AST 20 (13-39) U/L ALT 11 (7-52) U/L Alkaline Phosphatase 117 H (34-104) U/L Total Protein 6.0 (6.0-8.3) gm/dl Albumin 3.1 L (3.4-5.0) gm/dl Globulin 2.9 (2.5-4.0) gm/dl Albumin/Globulin Ratio 1.1 (0.9-2) Treponema pallidum Ab Negative (Negative) PE: General: Alert, orientedx3, NAD Abd: soft, NT, fundus firm, below Umbilicus Perineum intact, Lochia rubra minimal Ext; NT, no edema AP: 38 yo s/p , ppd# 2 VSS Afebrile doing well Continue routine care All questions were answered Discused when to call D/C home , f/u in office Results & Data Vital Signs (Past 12 Hours) Vital Signs Temp Pulse Resp BP Pulse Ox O2 Del Method 05/03/24 07:20 36.5 C 76 16 107/67 96 Room Air 05/02/24 23:52 36.6 C 75 18 104/66 96 Room Air
== END 2024-05-03 11:25 | disposition home or self-care (01) | DRG 807 ==
LOC: 4S1 07:45 → 4E2 05-02 01:45